=== PATIENT | male | born 1960 | race Caucasian/White ===

== ENCOUNTER → 2019-02-10 | Outpatient (CLI) | payer OTHER ==
[~2019-02-10] MED LIST: AMLO5 PO; CENTRUM SILVER1 EAC4 PO; Ecotrin325 MG PO; GABA300 PO; LOSARTAN-HCTZ1 EAC1 PO; METO50 PO; MOVE FREE JOIN1 EACH PO; Omeprazole20 M1 PO; POTCHL10ER PO; Spironolactone1 EACH PO
== END | disposition home or self-care (01) ==
LOC: LAB SHORT 11:00 → LAB EV 11:00
DX: S91.301A Unspecified open wound, right foot, initial encounter (principal)
CPT/HCPCS: 87070; 87077; 87147; 87186; 87205

== ENCOUNTER 2019-02-12 10:17 | Inpatient (IN) | payer OTHER ==
[~2019-02-12] VITALS: Ht 200.7 cm; Wt 135.2 kg
[2019-02-12 10:52] LABS: BASOPHILS ABSOLUTE AUTO 0.04 K/mm3 (0.00-0.23); BASOPHILS PERCENT AUTO 1 % (0-2); EOSINOPHILS ABSOLUTE AUTO 0.11 K/mm3 (0.00-0.68); EOSINOPHILS PERCENT AUTO 1 % (0-6); Hematocrit 36.9 % (37.0-53.0); Hemoglobin 12.4 g/dL (13.5-17.5); IMMATURE GRAN ABSOLUTE AUTO 0.03 K/mm3 (0.00-0.10); IMMATURE GRAN PERCENT AUTO 0 % (0-1); LYMPHOCYTES PERCENT AUTO 14 % (21-46); MONOCYTES ABSOLUTE AUTO 0.75 K/mm3 (0.16-1.47); MONOCYTES PERCENT AUTO 9 % (4-13); Mean Corpuscular HGB 29.2 pg (26.0-34.0); Mean Corpuscular HGB Conc 33.6 g/dL (31.5-36.5); Mean Corpuscular Volume 87 fL (80-100); Mean Platelet Volume 10.5 fL (9.1-12.4); NEUTROPHILS PERCENT AUTO 76 % (41-73); Platelet Count 236 K/mm3 (150-400); RDW Coefficient Variation 12.6 % (11.7-14.2); Red Blood Cell Count 4.25 M/mm3 (4.30-5.90); White Blood Cell Count 8.73 K/mm3 (4.00-11.30)
[2019-02-12 11:20] LABS: Albumin, Blood 3.8 g/dL (3.4-5.0); Albumin/Globulin Ratio 0.8 (0.8-1.8); Bilirubin, Total 0.5 mg/dL (0.1-1.0); Bun/Creatinine Ratio 18.6 (12.0-20.0); Calcium, Blood 9.1 mg/dL (8.5-10.1); Creatinine, Blood 1.67 mg/dL (0.60-1.20); Globulin, Blood 4.6 g/dL (2.2-4.0); Potassium, Blood 3.9 mmol/L (3.5-5.5); Total Protein, Blood 8.4 g/dL (6.4-8.2)
[2019-02-12] MEDS ORDERED: Spironolactone1 EACH PO ×2 (12:24)
[2019-02-12] MEDS ORDERED: POTCHL10ER PO ×2 (12:24)
[2019-02-12] MEDS ORDERED: AMLO5 PO ×2 (12:25)
[2019-02-12] MEDS ORDERED: GABA300 PO ×2 (12:26)
[2019-02-12] MEDS ORDERED: METO50 PO ×2 (12:27)
[2019-02-12] MEDS ORDERED: Omeprazole20 M1 PO ×2 (12:27)
[2019-02-12] MEDS ORDERED: LOSARTAN-HCTZ1 EAC1 PO ×2 (12:28)
[2019-02-12] MEDS ORDERED: ASPI81CH PO ×2 (12:44)
[2019-02-12] MEDS ORDERED: CENTRUM SILVER1 EAC4 PO ×2 (12:45)
[2019-02-12] MEDS ORDERED: MOVE FREE JOIN1 EACH PO ×2 (12:48)
--- NOTE | 2019-02-12 19:40 | NUR ---
ARRIVES TO FLOOR ABOUT 1600. ALERT AND ORIENTED. PIC TAKEN OF BOTH FEET WOUNDS, BUT FORGOT TO DO WOUND CULTURE WITH NIGHT RN AWARE. DR. CAVAZOS CALLED AND MAY BE IN TONIGHT TO SEE PATIENT. STEADY GAIT. DENIES ANY PAIN. UNLABORED RESPIRATIONS. BED IN LOW POSITION. REPORT TO NIGHT RN
[2019-02-13 05:29] LABS: BASOPHILS ABSOLUTE AUTO 0.05 K/mm3 (0.00-0.23); BASOPHILS PERCENT AUTO 1 % (0-2); EOSINOPHILS PERCENT AUTO 3 % (0-6); Hematocrit 34.8 % (37.0-53.0); Hemoglobin 11.5 g/dL (13.5-17.5); IMMATURE GRAN ABSOLUTE AUTO 0.02 K/mm3 (0.00-0.10); IMMATURE GRAN PERCENT AUTO 0 % (0-1); LYMPHOCYTES ABSOLUTE AUTO 0.97 K/mm3 (0.84-5.20); LYMPHOCYTES PERCENT AUTO 16 % (21-46); MONOCYTES ABSOLUTE AUTO 0.73 K/mm3 (0.16-1.47); MONOCYTES PERCENT AUTO 12 % (4-13); Mean Corpuscular HGB 28.5 pg (26.0-34.0); Mean Corpuscular Volume 86 fL (80-100); Mean Platelet Volume 10.5 fL (9.1-12.4); NEUTROPHILS PERCENT AUTO 69 % (41-73); Platelet Count 204 K/mm3 (150-400); RDW Coefficient Variation 12.5 % (11.7-14.2); RDW Standard Deviation 39.7 fL (35.1-46.3); Red Blood Cell Count 4.03 M/mm3 (4.30-5.90); White Blood Cell Count 6.27 K/mm3 (4.00-11.30)
[2019-02-13 05:49] LABS: Albumin, Blood 3.3 g/dL (3.4-5.0); Albumin/Globulin Ratio 0.8 (0.8-1.8); Bilirubin, Total 0.6 mg/dL (0.1-1.0); Bun/Creatinine Ratio 19.1 (12.0-20.0); Calcium, Blood 8.9 mg/dL (8.5-10.1); Creatinine, Blood 1.57 mg/dL (0.60-1.20); Globulin, Blood 4.1 g/dL (2.2-4.0); Potassium, Blood 4.1 mmol/L (3.5-5.5); Total Protein, Blood 7.4 g/dL (6.4-8.2)
--- NOTE | 2019-02-13 06:58 | NUR ---
Rn summary: Patient is alert and oriented. He is up ad erika in room. Pt has open area to left little toe with decreasing redness. Dr. Stearns was in at beginning of shift, did talk with paitent and saw foot. Wound culture obtained and drsg reapplied. Pt has mepilex to rt little toe. Pt has kwabena foot neuropathy, puslses are strong. Pt has chronic back pain and received tylenol and advil x2 with good relief, also has eggcrate to bed. Pt has only rested on and off this shift. Pt receiving IV antibiotics. Call light in reach.
[2019-02-13 13:36] LABS: Adenovirus F 40/41 Not Detected (NOT DETECT); Astrovirus Not Detected (NOT DETECT); Campylobacter Sp Not Detected (NOT DETECT); Cryptosporidium Not Detected (NOT DETECT); Cyclospora Cayetanensis Not Detected (NOT DETECT); E. Coli O157 Not Detected (NOT DETECT); Entamoeba Histolytica Not Detected (NOT DETECT); Enteroaggregative E. coli-EAEC Not Detected (NOT DETECT); Enteropathogenic E. coli-EPEC Not Detected (NOT DETECT); Enterotoxigenic E. coli-ETEC Not Detected (NOT DETECT); Giardia Lamblia Not Detected (NOT DETECT); Norovirus GI/GII Not Detected (NOT DETECT); Plesiomonas Shigelloides Not Detected (NOT DETECT); Rotavirus A Not Detected (NOT DETECT); Salmonella Sp Not Detected (NOT DETECT); Sapovirus Not Detected (NOT DETECT); Shiga Toxin-prod E. coli-STEC Not Detected (NOT DETECT); Shigella/Enteroin E. coli-EIEC Not Detected (NOT DETECT); Vibrio Cholerae Not Detected (NOT DETECT); Vibrio Sp Not Detected (NOT DETECT); Yersinia Enterocolitica Not Detected (NOT DETECT)
--- NOTE | 2019-02-13 16:53 | NUR ---
SUMMARY PT IS A/O X4, PLEASANT/COOPERATIVE AFFECT. INDEPENDANT IN ROOM, HE STATE NO PAIN ULCER SITES L SM TOE, R SM TOE. STATE BLE NEUROPATHY. WOUND CARE/DRSG CHANGES PROVIDED TODAY. IV ANTIBX CONTINUE. PT REPORT DARRHEA THIS AM, DR LUCIANO ORDER GI PANEL. C-DIFF+, CONTACT ISO PRECAUTIONS EXPLAINED TO PT/, GOOD HANDWASHING ENCOURAGED. THEY VERBALIZE UNDERSTANDING. DR LUCIANO ORDER ORAL VANCO FOR TX. THIS AM SBP 90'S, BP MEDS HELD. THIS AFTERNOON BP 110/68.
[2019-02-13 18:47] LABS: Vancomycin, Trough 16.5 ug/mL (5.0-10.0)
[2019-02-14 06:01] LABS: Albumin, Blood 3.2 g/dL (3.4-5.0); Anion Gap 6 mmol/L (6-16); Blood Urea Nitrogen 22 mg/dL (8-24); Bun/Creatinine Ratio 15.1 (12.0-20.0); CO2, Blood 26 mmol/L (21-32); Calcium, Blood 8.8 mg/dL (8.5-10.1); Chloride, Blood 104 mmol/L (98-108); Creatinine, Blood 1.46 mg/dL (0.60-1.20); Glomerular Filtration Rate 53 (60-); Glucose, Blood 99 mg/dL (70-99); Phosphorus, Blood 3.3 mg/dL (2.5-4.9); Potassium, Blood 4.2 mmol/L (3.5-5.5); Sodium, Blood 136 mmol/L (136-145)
--- NOTE | 2019-02-14 06:45 | NUR ---
SHIFT SUMMARY PATIENT IS ALERT AND ORIENTED. WOUNDS ON FEET HAVE BEEN REDRESSED AND ARE C/D/I. PATIENT HAD IV VANCO AND ORAL VANCO A COUPLE HOURS AFTER PATIENT CALLED SAYING HIS STOMACH WAS VERY ITCHY, PATIENT APPEARS TO HAVE HIVES ON ABDOMEN. CALLED HOSPITALIST AND RECIEVED ORDER FOR OT BENADRYL. THIS HELPED SOME BUT PATIENT IS STILL ITCHY. HOSPITALIST UNSURE IF PATIENT SHOULD GET ANYMORE VANCO. WILL PASS ALONG TO DAYSHIFT RN TO TALK WITH DAYSHIFT DOCTOR. PATIENT AMBULATES TO BATHROOM INDEPENDENTLY. PT STATES HE HAS NOT HAD A BM THIS SHIFT. BP MEDS HELD FOR LOW BP AND PER PHARMACIST RECOMMENDATION. VITALS STABLE. NO OTHER CHANGES.
--- NOTE | 2019-02-14 17:08 | NUR ---
SUMMARY PT A/O X4, PLEASANT/COOPERATIVE AFFECT. STATE NO PAIN WOUND SITES, HX BLE NEUROPATHY. HAVE GIVEN TYLENOL & IBUPROFEN TODAY FOR H/A & CHR BACK PAIN RELIEF/CONTROL. PT AMBULATES IND. DR LUCIANO IN TO SEE HIM THIS AM, DISCUSS ANTIBX TX. D/C VANCO. IV ZOSYN CONTINUES. WOUND CARE/DRSG CHANGES PROVIDED. DR ESTEVES TO CONTINUE IV NS W K+ @ 75 ML/HR, STATE KIDNEY FX IMPROVING. COCOA PRESS OPERATOR STATE PICC WILL BE PLACED IN AM. DIARRHEA CONTINUES, C-DIFF+, DR LUCIANO ORDER LOPERIMIDE PRN. VSS.
[2019-02-15 05:36] LABS: BASOPHILS ABSOLUTE AUTO 0.03 K/mm3 (0.00-0.23); BASOPHILS PERCENT AUTO 1 % (0-2); EOSINOPHILS ABSOLUTE AUTO 0.21 K/mm3 (0.00-0.68); EOSINOPHILS PERCENT AUTO 5 % (0-6); Hematocrit 33.4 % (37.0-53.0); Hemoglobin 11.1 g/dL (13.5-17.5); IMMATURE GRAN ABSOLUTE AUTO 0.02 K/mm3 (0.00-0.10); IMMATURE GRAN PERCENT AUTO 0 % (0-1); LYMPHOCYTES ABSOLUTE AUTO 0.91 K/mm3 (0.84-5.20); LYMPHOCYTES PERCENT AUTO 20 % (21-46); MONOCYTES ABSOLUTE AUTO 0.67 K/mm3 (0.16-1.47); MONOCYTES PERCENT AUTO 15 % (4-13); Mean Corpuscular HGB 29.4 pg (26.0-34.0); Mean Corpuscular HGB Conc 33.2 g/dL (31.5-36.5); Mean Platelet Volume 10.2 fL (9.1-12.4); NEUTROPHILS ABSOLUTE AUTO 2.61 K/mm3 (1.96-9.15); NEUTROPHILS PERCENT AUTO 59 % (41-73); Platelet Count 168 K/mm3 (150-400); RDW Coefficient Variation 12.4 % (11.7-14.2); RDW Standard Deviation 40.2 fL (35.1-46.3); Red Blood Cell Count 3.77 M/mm3 (4.30-5.90); White Blood Cell Count 4.45 K/mm3 (4.00-11.30)
[2019-02-15 05:37] LABS: Mean Corpuscular Volume 89 fL (80-100)
[2019-02-15 05:54] LABS: Anion Gap 5 mmol/L (6-16); Blood Urea Nitrogen 18 mg/dL (8-24); Bun/Creatinine Ratio 13.4 (12.0-20.0); CO2, Blood 26 mmol/L (21-32); Calcium, Blood 8.3 mg/dL (8.5-10.1); Chloride, Blood 109 mmol/L (98-108); Creatinine, Blood 1.34 mg/dL (0.60-1.20); Glomerular Filtration Rate 58 (60-); Glucose, Blood 99 mg/dL (70-99); Magnesium, Blood 1.7 mg/dL (1.6-2.4); Phosphorus, Blood 2.9 mg/dL (2.5-4.9); Potassium, Blood 4.3 mmol/L (3.5-5.5); Sodium, Blood 140 mmol/L (136-145)
--- NOTE | 2019-02-15 06:46 | NUR ---
a+o, up and walking in [address], R upper arm 20g, room air, able to make needs known, call light in reach, walking rounds completed with day shift
--- NOTE | 2019-02-15 17:47 | NUR ---
SHIFT SUMMARY 58 YR OLD MALE ADMITTED FOR OSTEOMYELITIS. AT FIRST BELIEVED TO BE CELLULITIS IT WAS DISCOVERED HE HAD A FRACTURED LITTLE TOE AND OSTEOMYELITIS. A PICC LINE WAS PUT IN TODAY FOR THIS PT TO RECEIVE 6 WEEKS OF IV ANTIBIOTIC THERAPY. NOW AWAITING SET UP OF SOME TYPE OF HOME HEALTH (PT'S INSURANCE WILLING) SO THAT THIS MEDICATION MAY BE GIVEN AT HOME. PT CAN THEN DISCHARGE. [facility] IS INVESTIGATING. I CHANGED THE DRESSING ON THE LEFT FOOT TODAY. HOSPITALIST REMOVED THE LEFT FOOT'S DRESSING. PT IS INDEPENDENT IN THE ROOM AND WALKS HALLS WITH HIS . HE IS ON ROOM AIR. A&O X4. HX: NEUROPATHY
--- NOTE | 2019-02-16 07:26 | NUR ---
a+o, up walking in the halls, room air, picc line and IV infusing with no s/sx of infection or infiltration, cooperative with staff
--- NOTE | 2019-02-16 12:14 | NUR ---
CALLED PHARMACY RE:EARLY VANCOMYCIN ADMIN INFORMED PHARMACY WE WOULD LIKE TO DC PT AFTER NEXT ANTIBIOTIC DOSE IS COMPLETED. I INQUIRED TO WHAT WOULD BE THE SAFEST EARLY ADMINISTRATION TIME TO BEGIN NEXT DOSE OF VANCO. PHARMACIST RECOMMENDS TO BEGIN VANCO NO EARLIER THAN 1700 HRS.
--- NOTE | 2019-02-16 18:08 | NUR ---
SHIFT SUMMARY 58 YR OLD MALE ADMITTED FOR OSTEOMYELITIS IN LEFT FOOT W/FRACTURE. FULL CODE. RT FOOT HAS A SMALL WOUND THAT IS ALMOST RESOLVED. HE IS ON A REGULAR DIET, AMBULATES INDEPENDENTLY, ROOM AIR, A&O X4. CDIFF COLONIZATION - CONTACT PRECAUTIONS. PLAN IS FOR PT TO DC TOMORROW WITH NEW PICC LINE FOR 6 WKS OF IV ANTIBIOTIC THERAPY. CARE MANAGEMENT IS WORKING HARD TO ARRANGE THE DETAILS OF HOW THE ANTIBIOTICS WILL BE ADMINISTERED THAT WILL SATISFY BOTH THE PT AND THE PT'S INSURANCE COMPANY (IF NOT, AT LEAST TO FIND MORE COST EFFECTIVE SOLUTIONS TO OFFER THE PT). PLAN IS FOR DC TOMORROW IF THESE ARRANGEMENTS CAN BE MADE.
--- NOTE | 2019-02-17 07:09 | NUR ---
a+o ready to go home as soon as it is safe to do so, call light in reach, saline locked, room air, independant, walking rounds completed with returning day staff
[2019-02-17 09:40] LABS: Vancomycin, Trough 17.1 ug/mL (5.0-10.0)
--- NOTE | 2019-02-17 12:46 | NUR ---
SPOKE WITH PT, SPOUSE AND BINDUYLIN AT BEDSIDE REGARDING DISCHARGE PLAN. SPOKE WITH BAUDILIO IN PHARMACY WHO REPORTS SHE SPOKE WITH ANTONIO AND PT CAN GET IV VANCO AT 0730 AND 1630 ON AND FRI, BINDUYLIN O SET UP. PER BAUDILIO OK TO GIVE 2100 DOSE TONIGHT AT 1630 PRIOR TO DISCHARGE HOME.
--- NOTE | 2019-02-17 15:22 | NUR ---
DRESSINGS CHANGED TO BILAT FEET 5TH TOES. NEW PHOTOS TAKEN. BOTH SECURED WITH COBAN. NETTING APPLIED OVER PICC LINE TO SECURE.
[2019-02-17] MEDS ORDERED: ACET325 PO ×2 (17:25)
[2019-02-17] MEDS ORDERED: Florastor250 MG PO ×2 (17:26)
[2019-02-17] MEDS ORDERED: VANCO 2 GR2 GM/500 M IV ×2 (17:26)
--- NOTE | 2019-02-17 17:28 | NUR ---
IV VANCO STARTED AT 1630 PER PHARMACY. PT TO GO TO [facility] FRIDAY AND FRI AT 0730 AND 1630 FOR IV VANCO THEN START HOME INFUSIONS ON FRIDAY, PER [facility] THEY WILL TRAIN PT IF NEEDED. F/U APPT MADE WITH DR CAVAZOS 02/23 AT 0800 AND PICC LINE DRESSING CHANGE THE AT 0930 AT [facility]. PT AND SPOUSE INSTRUCTED ON WOUND CARE DRESSING CHANGES AND EXTRA SUPPLIES SENT WITH PT. SCRIPT FOR WORK RELESAE GIVEN TO PT. CURRENTLY AWAITING ABX TO COMPLETE THEN D/C HOME WITH SPOUSE. NETTING SECURED OVER PICC LINE.
--- NOTE | 2019-02-17 18:46 | NUR ---
PT DC'D HOME WITH SPOUSE AT 1843 AFTER IV XUANO. PT ESCORTED OUT VIA W/C.
== END 2019-02-17 18:43 | disposition home or self-care (01) | DRG 563 ==
LOC: ER 10:17 → MEDS 13:33
PROVIDERS: Emergency Medicine; ADMIT Internal Medicine Gastroenterology
PROC: 02HV33Z Insertion of Infusion Device into Superior Vena Cava, Percutaneous Approach (ICD-10-PCS; principal; 2019-02-15)
PROC: 4A02X4A Measurement of Cardiac Electrical Activity, Guidance, External Approach (ICD-10-PCS; 2019-02-15)
DX: S92.902A Unspecified fracture of left foot, initial encounter for closed fracture (principal); L03.116 Cellulitis of left lower limb; M86.9 Osteomyelitis, unspecified; G60.8 Other hereditary and idiopathic neuropathies; I10 Essential (primary) hypertension; K21.9 Gastro-esophageal reflux disease without esophagitis; E66.9 Obesity, unspecified
CPT/HCPCS: 36415; 36569; 73620; 73718; 80053; 80069; 80202; 83605; 83735; 84145; 85025; 85651; 86140; 87040; 87070; 87075; 87077; 87147; 87186; 87205; 87324; 87507; 93306; 99285-25; A9270; C1751; J1650; J2405; J2543; J3370; J3480; J7050; Q0163

== ENCOUNTER 2019-02-18 07:09 | Day surgery (SDC) | payer OTHER ==
[~2019-02-18 07:09] MED LIST changes: +ACET325 PO; +ASPI81CH PO; -Ecotrin325 MG PO; +Florastor250 MG PO; +VANCO 2 GR2 GM/500 M IV
--- NOTE | 2019-02-18 17:42 | NUR ---
PICC LINE CARE/FLUSH TEACHING TO SPOUSE/PT PT TO START HOME INFUSIONS. PT BROUGHT IN HOME SUPPLIES. PT HAS PREFILLED VANCOMYCIN ON ICE AND NS FLUSHES. SPOUSE DEMONSTRATES FLUSHING OF LINE, AND HOOKING PRIMARY TUBING TO PORT. VERBALIZES IMPORTANCE OF MAINTAINING ASEPTIC TECHNIQUE FOR PICC CARE.
== END 2019-02-18 18:30 | disposition home or self-care (01) ==
LOC: ATC 07:09
DX: M86.172 Other acute osteomyelitis, left ankle and foot (principal); I10 Essential (primary) hypertension; K21.9 Gastro-esophageal reflux disease without esophagitis; G62.9 Polyneuropathy, unspecified; Z86.73 Personal history of transient ischemic attack (TIA), and cerebral infarction without residual deficits; Z88.8 Allergy status to other drugs, medicaments and biological substances; Z87.891 Personal history of nicotine dependence
CPT/HCPCS: 96365; 96366; J3370; J7050

== ENCOUNTER 2019-02-23 00:18 | Day surgery (SDC) | payer OTHER ==
[2019-02-23 10:58] LABS: BASOPHILS ABSOLUTE AUTO 0.06 K/mm3 (0.00-0.23); BASOPHILS PERCENT AUTO 1 % (0-2); EOSINOPHILS ABSOLUTE AUTO 0.27 K/mm3 (0.00-0.68); EOSINOPHILS PERCENT AUTO 4 % (0-6); Hematocrit 34.6 % (37.0-53.0); Hemoglobin 11.4 g/dL (13.5-17.5); IMMATURE GRAN ABSOLUTE AUTO 0.04 K/mm3 (0.00-0.10); IMMATURE GRAN PERCENT AUTO 1 % (0-1); LYMPHOCYTES ABSOLUTE AUTO 0.66 K/mm3 (0.84-5.20); LYMPHOCYTES PERCENT AUTO 10 % (21-46); MONOCYTES ABSOLUTE AUTO 0.66 K/mm3 (0.16-1.47); MONOCYTES PERCENT AUTO 10 % (4-13); Mean Corpuscular HGB 28.6 pg (26.0-34.0); Mean Corpuscular HGB Conc 32.9 g/dL (31.5-36.5); Mean Corpuscular Volume 87 fL (80-100); Mean Platelet Volume 11.1 fL (9.1-12.4); NEUTROPHILS ABSOLUTE AUTO 5.25 K/mm3 (1.96-9.15); NEUTROPHILS PERCENT AUTO 76 % (41-73); Platelet Count 179 K/mm3 (150-400); RDW Coefficient Variation 13.1 % (11.7-14.2); RDW Standard Deviation 40.8 fL (35.1-46.3); Red Blood Cell Count 3.99 M/mm3 (4.30-5.90); White Blood Cell Count 6.94 K/mm3 (4.00-11.30)
[2019-02-23 11:20] LABS: Anion Gap 7 mmol/L (6-16); Blood Urea Nitrogen 26 mg/dL (8-24); Bun/Creatinine Ratio 17.8 (12.0-20.0); CO2, Blood 27 mmol/L (21-32); Calcium, Blood 8.9 mg/dL (8.5-10.1); Chloride, Blood 106 mmol/L (98-108); Creatinine, Blood 1.46 mg/dL (0.60-1.20); Glomerular Filtration Rate 53 (60-); Glucose, Blood 99 mg/dL (70-99); Sodium, Blood 140 mmol/L (136-145)
[2019-02-23 11:27] LABS: Vancomycin, Trough 42.8 ug/mL (5.0-10.0)
== END 2019-02-23 10:55 | disposition home or self-care (01) ==
LOC: ATC 00:18
PROVIDERS: Internal Medicine Gastroenterology
DX: M86.172 Other acute osteomyelitis, left ankle and foot (principal); I10 Essential (primary) hypertension; K21.9 Gastro-esophageal reflux disease without esophagitis; Z88.8 Allergy status to other drugs, medicaments and biological substances; Z87.891 Personal history of nicotine dependence
CPT/HCPCS: 36592; 80048; 80202; 85025; 85651

== ENCOUNTER 2019-03-02 03:01 | Day surgery (SDC) | payer OTHER ==
[2019-03-02 17:07] LABS: BASOPHILS ABSOLUTE AUTO 0.07 K/mm3 (0.00-0.23); BASOPHILS PERCENT AUTO 1 % (0-2); EOSINOPHILS ABSOLUTE AUTO 0.27 K/mm3 (0.00-0.68); EOSINOPHILS PERCENT AUTO 4 % (0-6); Hemoglobin 10.9 g/dL (13.5-17.5); IMMATURE GRAN ABSOLUTE AUTO 0.02 K/mm3 (0.00-0.10); IMMATURE GRAN PERCENT AUTO 0 % (0-1); LYMPHOCYTES PERCENT AUTO 16 % (21-46); MONOCYTES ABSOLUTE AUTO 0.62 K/mm3 (0.16-1.47); MONOCYTES PERCENT AUTO 10 % (4-13); Mean Corpuscular HGB 28.2 pg (26.0-34.0); Mean Corpuscular Volume 86 fL (80-100); Mean Platelet Volume 10.8 fL (9.1-12.4); NEUTROPHILS ABSOLUTE AUTO 4.27 K/mm3 (1.96-9.15); NEUTROPHILS PERCENT AUTO 68 % (41-73); Platelet Count 198 K/mm3 (150-400); RDW Coefficient Variation 13.4 % (11.7-14.2); Red Blood Cell Count 3.86 M/mm3 (4.30-5.90); White Blood Cell Count 6.25 K/mm3 (4.00-11.30)
[2019-03-02 17:34] LABS: Anion Gap 8 mmol/L (6-16); Blood Urea Nitrogen 22 mg/dL (8-24); Bun/Creatinine Ratio 16.3 (12.0-20.0); CO2, Blood 28 mmol/L (21-32); Calcium, Blood 8.9 mg/dL (8.5-10.1); Chloride, Blood 104 mmol/L (98-108); Creatinine, Blood 1.35 mg/dL (0.60-1.20); Glomerular Filtration Rate 58 (60-); Glucose, Blood 87 mg/dL (70-99); Potassium, Blood 3.5 mmol/L (3.5-5.5); Sodium, Blood 140 mmol/L (136-145)
[2019-03-02 17:36] LABS: Vancomycin, Trough 32.8 ug/mL (5.0-10.0)
== END 2019-03-02 16:57 | disposition home or self-care (01) ==
LOC: ATC 03:01
PROVIDERS: Family Medicine
DX: M86.179 Other acute osteomyelitis, unspecified ankle and foot (principal); I10 Essential (primary) hypertension; Z86.73 Personal history of transient ischemic attack (TIA), and cerebral infarction without residual deficits; Z79.899 Other long term (current) drug therapy; Z79.82 Long term (current) use of aspirin
CPT/HCPCS: 80048; 80202; 85025; 99211

== ENCOUNTER 2019-03-09 17:23 | Day surgery (SDC) | payer OTHER | END 2019-03-09 17:30 | disposition home or self-care (01) | LOC: ATC 17:23 | DX: M86.172 Other acute osteomyelitis, left ankle and foot (principal); I10 Essential (primary) hypertension; Z86.73 Personal history of transient ischemic attack (TIA), and cerebral infarction without residual deficits; Z79.899 Other long term (current) drug therapy; Z79.82 Long term (current) use of aspirin; Z87.891 Personal history of nicotine dependence | CPT/HCPCS: 99211 ==

== ENCOUNTER 2019-10-04 07:44 | Inpatient (IN) | payer OTHER ==
[~2019-10-04] VITALS: Ht 193 cm; Wt 134.0 kg
[~2019-10-04 07:44] MED LIST changes: -AMLO5 PO; +AMLODIPINE BESY10 MG PO; -ASPI81CH PO; +Aspirin EC81 MG PO
[2019-10-04 09:33] LABS: BASOPHILS ABSOLUTE AUTO 0.01 K/mm3 (0.00-0.23); BASOPHILS PERCENT AUTO 0 % (0-2); EOSINOPHILS PERCENT AUTO 0 % (0-6); Hematocrit 35.8 % (37.0-53.0); Hemoglobin 12.1 g/dL (13.5-17.5); IMMATURE GRAN ABSOLUTE AUTO 0.01 K/mm3 (0.00-0.10); IMMATURE GRAN PERCENT AUTO 0 % (0-1); LYMPHOCYTES ABSOLUTE AUTO 0.46 K/mm3 (0.84-5.20); LYMPHOCYTES PERCENT AUTO 8 % (21-46); MONOCYTES ABSOLUTE AUTO 0.59 K/mm3 (0.16-1.47); MONOCYTES PERCENT AUTO 11 % (4-13); Mean Corpuscular HGB 28.9 pg (26.0-34.0); Mean Corpuscular HGB Conc 33.8 g/dL (31.5-36.5); Mean Corpuscular Volume 85 fL (80-100); Mean Platelet Volume 11.1 fL (9.1-12.4); NEUTROPHILS ABSOLUTE AUTO 4.41 K/mm3 (1.96-9.15); NEUTROPHILS PERCENT AUTO 80 % (41-73); Platelet Count 101 K/mm3 (150-400); RDW Coefficient Variation 13.4 % (11.7-14.2); RDW Standard Deviation 41.9 fL (35.1-46.3); Red Blood Cell Count 4.19 M/mm3 (4.30-5.90); White Blood Cell Count 5.48 K/mm3 (4.00-11.30)
[2019-10-04 09:40] LABS: Calcium, Blood 8.6 mg/dL (8.5-10.1); Potassium, Blood 2.6 mmol/L (3.5-5.5)
[2019-10-04 09:48] LABS: Influenza A Negative (NEGATIVE); Influenza B Negative (NEGATIVE)
[2019-10-04 09:48] LABS: Albumin, Blood 3.6 g/dL (3.4-5.0); Albumin/Globulin Ratio 0.8 (0.8-1.8); Bilirubin, Total 1.2 mg/dL (0.1-1.0); Bun/Creatinine Ratio 19.5 (12.0-20.0); Creatinine, Blood 1.54 mg/dL (0.60-1.20); Globulin, Blood 4.3 g/dL (2.2-4.0); Total Protein, Blood 7.9 g/dL (6.4-8.2); Troponin I 0.094 ng/mL (0.000-0.040)
[2019-10-04 09:58] LABS: Source, Urine Voided
[2019-10-04 10:07] LABS: Bilirubin, Urine Neg (Neg); Blood, Urine 4+ (Neg); Glucose Qualitative, Urine Neg (Neg); Ketones, Urine 1+ (Neg); Leukocyte Esterase, Urine Neg (Neg); Nitrite, Urine Neg (Neg); Protein, Urine 3+ (Neg); Urobilinogen, Urine NORM (Normal)
[2019-10-04 10:25] LABS: Appearance, Urine Hazy (Clear); Color, Urine Yellow (P-Yellow); Squamous Epithelial Cells Few /hpf (Few)
[2019-10-04 10:26] LABS: Bacteria Few /hpf; Granular Casts 0-2 /lpf (0); Hyaline Casts 0-2 /lpf (0-2); White Blood Cells, Urine 0-2 /hpf (0-5)
--- NOTE | 2019-10-04 11:24 | NUR ---
REPORT FROM GORDON KAUR IN ER.
[2019-10-04] MEDS ORDERED: LOSARTAN POTAS100 MG PO (11:42)
[2019-10-04] MEDS ORDERED: HYDCHL25 PO (11:42)
[2019-10-04 12:22] LABS: Base Excess Venous 7.5 mmol/L; Bicarbonate Venous 31.2 mmol/L (24.0-30.0); PCO2 Venous 31.4 mmHg (38-42); PO2 Venous 51.6 mmHg (38-42)
[2019-10-04 12:23] LABS: pH Blood Venous 7.58 (7.34-7.37)
--- NOTE | 2019-10-04 12:55 | NUR ---
ABX STARTED. PT MEDICATED WITH ZOFRAN FOR NAUSEA. PT ABLE TO GET TO AND FROM RR FOR 2ND LIQUID STOOL. WILL NOTIFY PROVIDER.
[2019-10-04 17:47] LABS: Troponin I 0.114 ng/mL (0.000-0.040)
[2019-10-04 17:49] LABS: Thyroid Stimulating Hormone 0.552 uIU/mL (0.360-4.800)
--- NOTE | 2019-10-04 20:42 | NUR ---
ASSUMED CARE OF PATIENT PATIENT IS LETHARGIC, PERFUSLY DIAPHORETIC AND HAS A FEVER OF 100.5 - REPORTED FINDINGS TO MD WEISS - PATIENT CHANGED FROM MEDICAL STATUS TO PCU PER MD WEISS. PATIENT REMAINS IN NSR IN THE 80'S AT THIS TIME; SIGNIFICANT OTHER AT BEDSIDE. RESPIRATIONS LABORED AT REST ON 3 LPM NC; WILL CONTINUE TO MONITOR. PATIENT ALSO REPORTS BACK PAIN DUE TO BED - MD INFORMED BUT DUE TO KIDNEY FUNCTION NO FURTHER MEDICATION ORDERED FOR FEVER OR PAIN AT THIS TIME. WILL CONTINUE TO MONITOR; CALL LIGHT W/I REACH.
[2019-10-05 00:16] LABS: Adenovirus Not Detected (NOT DETECT); Coronavirus 229E Not Detected (NOT DETECT); Coronavirus HKU1 Not Detected (NOT DETECT); Coronavirus NL63 Not Detected (NOT DETECT); Coronavirus OC43 Not Detected (NOT DETECT); Human Metapneumovirus Not Detected (NOT DETECT); Human Rhinovirus/Enterovirus Not Detected (NOT DETECT)
[2019-10-05 00:17] LABS: Bordetella pertussis Not Detected (NOT DETECT); Chlamydophila pneumoniae Not Detected (NOT DETECT); Influenza A Not Detected (NOT DETECT); Influenza A/2009-H1 Not Detected (NOT DETECT); Influenza A/H1 Not Detected (NOT DETECT); Influenza A/H3 Not Detected (NOT DETECT); Influenza B Not Detected (NOT DETECT); Mycoplasma pneumoniae Not Detected (NOT DETECT); Parainfluenza Virus 1 Not Detected (NOT DETECT); Parainfluenza Virus 2 Not Detected (NOT DETECT); Parainfluenza Virus 3 Not Detected (NOT DETECT); Parainfluenza Virus 4 Not Detected (NOT DETECT); Respiratory Syncytial Virus Not Detected (NOT DETECT)
[2019-10-05 02:20] LABS: Albumin, Blood 3.2 g/dL (3.4-5.0); Albumin/Globulin Ratio 0.8 (0.8-1.8); Bilirubin, Total 0.7 mg/dL (0.1-1.0); Bun/Creatinine Ratio 18.3 (12.0-20.0); Creatinine, Blood 1.53 mg/dL (0.60-1.20); Potassium, Blood 3.1 mmol/L (3.5-5.5); Total Protein, Blood 7.2 g/dL (6.4-8.2)
[2019-10-05 03:51] LABS: BASOPHILS ABSOLUTE AUTO 0.02 K/mm3 (0.00-0.23); BASOPHILS PERCENT AUTO 0 % (0-2); EOSINOPHILS PERCENT AUTO 0 % (0-6); Hematocrit 35.3 % (37.0-53.0); Hemoglobin 12.1 g/dL (13.5-17.5); IMMATURE GRAN ABSOLUTE AUTO 0.01 K/mm3 (0.00-0.10); IMMATURE GRAN PERCENT AUTO 0 % (0-1); LYMPHOCYTES ABSOLUTE AUTO 0.44 K/mm3 (0.84-5.20); LYMPHOCYTES PERCENT AUTO 9 % (21-46); MONOCYTES ABSOLUTE AUTO 0.59 K/mm3 (0.16-1.47); MONOCYTES PERCENT AUTO 12 % (4-13); Mean Corpuscular HGB 29.2 pg (26.0-34.0); Mean Corpuscular HGB Conc 34.3 g/dL (31.5-36.5); Mean Corpuscular Volume 85 fL (80-100); Mean Platelet Volume 11.8 fL (9.1-12.4); NEUTROPHILS PERCENT AUTO 78 % (41-73); Platelet Count 107 K/mm3 (150-400); RDW Coefficient Variation 13.4 % (11.7-14.2); RDW Standard Deviation 42.1 fL (35.1-46.3); Red Blood Cell Count 4.14 M/mm3 (4.30-5.90); White Blood Cell Count 4.76 K/mm3 (4.00-11.30)
[2019-10-05 04:07] LABS: Troponin I 0.066 ng/mL (0.000-0.040)
--- NOTE | 2019-10-05 06:36 | NUR ---
PCU NOC SHIFT SUMMARY PATIENT REMAINS ALERT AND ORIENTED X4. RESP LABORED AND UNEVEN, PERIODS OF APNEA NOTED WHILE PATIENT WAS SLEEPING - OXYGEN NEEDED AT 3 LPM DURING PERIODS OF SLEEP. PATIENT WAS ABLE TO AMBULATE THE HALLS W/O OXYGEN NEEDS BUT REMAINED SOB W/ LABORED BREATHING. PATIENT SWEATING/DIAPHORETIC T/O SHIFT - GOWN CHANGED 4 TIMES. PATIENT REMAINS IN NSR WITH NO CARDIAC EVENTS WITH HEART RATE IN THE 80'S PER IT APPLICATIONS ANALYST. PATIENT HAS INFECTION WITH NO SIGN OF ORGIN AT THIS TIME - TROPONINS ARE TRENDING DOWN PER LABS. FLUIDS RUNNING PER EMAR. PATIENT AMBLE TO AMBULATE TO BATHROOM WELL. WILL CONTINUE TO MONITOR AND GIVE REPORT TO DAYSHIFT RN.
--- NOTE | 2019-10-05 18:22 | NUR ---
SHIFT SUMMARY TMAX TODAY WAS 100.4. OVERALL PT FEELS HE IS IMPROVING. THIS MORNING PT REPORTED FREQUENT EPISODES OF DIARRHEA. NEW ORDERS FOR IMODIUM AND LACTOBACILLIS RECEIVED. AFTER DOSES, PT WAS ABLE TO TOLERATE MEALS AND HAD NO DIARRHEA THIS AFTERNOON. WAS ABLE TO WEAN PT DOWN ON O2 TODAY FROM 3L TO 2L NC. PT WAS ALSO UP AMBULATING HALLS W/O2 AND DIDN'T DROP HIS 02 SATS. TELEMETRY SHOWS PT TO BE IN A SINUS RHYTHM AND VITALS HAVE REMAINED STABLE.
--- NOTE | 2019-10-05 19:45 | NUR ---
ASSUMED CARE BEDSIDE REPORT RECIEVED. PT IS ALERT, ORIENTED, AND PLEASANT. PT SPOUSE AT BEDSIDE. PT DENIES PAIN OR SOB AT THIS TIME. PT DOES COMPLAIN OF CHILLS AT TIMES. PT FEBRILE 100.7. VITAL SIGNS STABLE. PT ON 1L O2 NC. NS INFUSING AT 125 ML/HR. PT WITH GOOD PO FLUID INTAKE. PT UP TO TOILET TO VOID INDEPENDENTLY. PT REPORTS DIARRHEA HAS BEEN IMPROVING THROUGHOUT THE DAY. WILL CONTINUE TO MONITOR.
[2019-10-06 05:26] LABS: BASOPHILS ABSOLUTE AUTO 0.01 K/mm3 (0.00-0.23); BASOPHILS PERCENT AUTO 0 % (0-2); EOSINOPHILS ABSOLUTE AUTO 0.02 K/mm3 (0.00-0.68); EOSINOPHILS PERCENT AUTO 1 % (0-6); Hematocrit 31.8 % (37.0-53.0); Hemoglobin 10.7 g/dL (13.5-17.5); Mean Corpuscular HGB 29.2 pg (26.0-34.0); Mean Corpuscular HGB Conc 33.6 g/dL (31.5-36.5); Mean Corpuscular Volume 87 fL (80-100); Mean Platelet Volume 12.2 fL (9.1-12.4); Platelet Count 98 K/mm3 (150-400); RDW Coefficient Variation 13.4 % (11.7-14.2); RDW Standard Deviation 43.3 fL (35.1-46.3); Red Blood Cell Count 3.66 M/mm3 (4.30-5.90); White Blood Cell Count 3.51 K/mm3 (4.00-11.30)
[2019-10-06 05:35] LABS: IMMATURE GRAN ABSOLUTE AUTO 0.01 K/mm3 (0.00-0.10); IMMATURE GRAN PERCENT AUTO 0 % (0-1); LYMPHOCYTES ABSOLUTE AUTO 0.57 K/mm3 (0.84-5.20); LYMPHOCYTES PERCENT AUTO 17 % (21-46); MONOCYTES ABSOLUTE AUTO 0.62 K/mm3 (0.16-1.47); MONOCYTES PERCENT AUTO 18 % (4-13); NEUTROPHILS ABSOLUTE AUTO 2.21 K/mm3 (1.96-9.15); NEUTROPHILS PERCENT AUTO 64 % (41-73)
--- NOTE | 2019-10-06 05:40 | NUR ---
SHIFT SUMMARY NO ACUTE CHANGES THIS SHIFT. PT HAS SLEPT OFF AND ON THROUGHOUT THE NIGHT. WHEN AWAKE PT HAS REMAINED ALERT AND ORIENTED. PT WEENED OF O2 TO RA. VITAL SIGNS HAVE REMAINED STABLE. PT INDEPENDENT IN ROOM. NS INFUSING AT 125 ML/HR. WILL CONTINUE TO MONITOR AND REPORT OFF TO ONCOMING RN.
[2019-10-06 05:55] LABS: Alanine Aminotransfer (ALT/SGP 46 U/L (12-78); Albumin, Blood 2.8 g/dL (3.4-5.0); Albumin/Globulin Ratio 0.8 (0.8-1.8); Alk Phos 43 U/L (50-136); Anion Gap 6 mmol/L (6-16); Aspartate Aminotrans (AST/SGOT 37 U/L (12-37); Bilirubin, Total 0.4 mg/dL (0.1-1.0); Blood Urea Nitrogen 29 mg/dL (8-24); Bun/Creatinine Ratio 19.9 (12.0-20.0); CO2, Blood 29 mmol/L (21-32); Calcium, Blood 7.7 mg/dL (8.5-10.1); Chloride, Blood 103 mmol/L (98-108); Creatinine, Blood 1.46 mg/dL (0.60-1.20); Globulin, Blood 3.6 g/dL (2.2-4.0); Glomerular Filtration Rate 53 (60-); Glucose, Blood 103 mg/dL (70-99); Potassium, Blood 2.8 mmol/L (3.5-5.5); Sodium, Blood 138 mmol/L (136-145); Total Protein, Blood 6.4 g/dL (6.4-8.2); Vancomycin, Trough 6.4 ug/mL (5.0-10.0)
--- NOTE | 2019-10-06 18:10 | NUR ---
SHIFT SUMMARY THIS ALERT AND ORIENTEDx4 PT HAS REMAINED ON ROOM AIR AND HAS BEEN UP AMBULATING MELENDEZ. TMAX TODAY 100.3. PT REQUESTED TYLENOL THIS AFTERNOON FOR A HEADACHE. POTASSIUM LEVEL WAS LOW THIS MORNING, REPLACED PER ORDERS VIA IV AND PO. TELEMETRY HAS SHOWN PT TO BE IN SINUS RHYTHM. OTHER VITALS HAVE REMAINED STABLE.
[2019-10-07 04:31] LABS: BASOPHILS ABSOLUTE AUTO 0.03 K/mm3 (0.00-0.23); BASOPHILS PERCENT AUTO 1 % (0-2); EOSINOPHILS ABSOLUTE AUTO 0.14 K/mm3 (0.00-0.68); EOSINOPHILS PERCENT AUTO 4 % (0-6); Hematocrit 32.2 % (37.0-53.0); Hemoglobin 10.6 g/dL (13.5-17.5); IMMATURE GRAN ABSOLUTE AUTO 0.01 K/mm3 (0.00-0.10); IMMATURE GRAN PERCENT AUTO 0 % (0-1); LYMPHOCYTES ABSOLUTE AUTO 0.72 K/mm3 (0.84-5.20); LYMPHOCYTES PERCENT AUTO 19 % (21-46); MONOCYTES ABSOLUTE AUTO 0.63 K/mm3 (0.16-1.47); MONOCYTES PERCENT AUTO 17 % (4-13); Mean Corpuscular HGB 28.7 pg (26.0-34.0); Mean Corpuscular HGB Conc 32.9 g/dL (31.5-36.5); Mean Corpuscular Volume 87 fL (80-100); Mean Platelet Volume 11.8 fL (9.1-12.4); NEUTROPHILS ABSOLUTE AUTO 2.27 K/mm3 (1.96-9.15); NEUTROPHILS PERCENT AUTO 60 % (41-73); Platelet Count 107 K/mm3 (150-400); RDW Coefficient Variation 13.6 % (11.7-14.2); RDW Standard Deviation 43.2 fL (35.1-46.3); Red Blood Cell Count 3.69 M/mm3 (4.30-5.90)
[2019-10-07 04:52] LABS: Albumin, Blood 2.6 g/dL (3.4-5.0); Albumin/Globulin Ratio 0.7 (0.8-1.8); Bilirubin, Total 0.3 mg/dL (0.1-1.0); Bun/Creatinine Ratio 17.6 (12.0-20.0); Calcium, Blood 7.9 mg/dL (8.5-10.1); Creatinine, Blood 1.36 mg/dL (0.60-1.20); Globulin, Blood 3.7 g/dL (2.2-4.0); Potassium, Blood 3.1 mmol/L (3.5-5.5); Total Protein, Blood 6.3 g/dL (6.4-8.2)
--- NOTE | 2019-10-07 07:24 | NUR ---
SHIFT SUMMARY PT A&O; CALLS APPROPRIATELY; VSS; SINUS RHYTHM W/ HR IN 70'S PER CLAMPER; DENIES CHEST PAIN; SLEPT WELL IN BETWEEN INTERVENTIONS; DENIES NEEDS AT THIS TIME; CALL LIGHT IN REACH; BED IN LOWEST POSITION; REPORT GIVEN TO DAY SHIFT RN.
--- NOTE | 2019-10-07 07:45 | NUR ---
INITIAL ASSESSMENT: PT SITTING UP ON THE EDGE OF THE BED. PT IS ALERT AND ORIETNED X3. PATIENT REPORTS MINIMAL PAIN IN HIS FEET, HE RATES THIS AT A 3/10. HRR. LS CTA. RT WAS CONCERNED BECAUSE WHEN THEY CAME IN THE ROOM THIS AM THE PATIENT WAS LAYING DOWN IN BED AND HIS OXYGEN SATURATION WAS 88-89 PERCENT. PATIENT SAT UPRIGHT ON THE EDGE OF THE BED AND HIS OXYGEN SATURATION CAME UP TO 95%.PT DENIES CHEST PAIN OR SOB. PT DENIES COUGH. THIS RN WILL MAKE SURE MD IS AWARE OF THE HYPOXIC EVENT. VSS. BIOX WNL ON RA. BT+. PPP. PT DENIES OTHER NEEDS AT THIS TIME. CALL LIGHT IN REACH, WILL CONTINUE TO MONITOR.
--- NOTE | 2019-10-07 08:30 | NUR ---
REPORT GIVEN TO CARTER KAUR.
--- NOTE | 2019-10-07 08:55 | NUR ---
PT MEDICATED WITH SCHEDULED MEDS PER EMAR. PT SITTING AT BEDSIDE.
--- NOTE | 2019-10-07 09:51 | NUR ---
DR STOREY TO ROOM. PENDING DC
--- NOTE | 2019-10-07 10:08 | NUR ---
PT TO BE DISCHARGED. TELE REMOVED, IV REMOVED TIP INTACT. DRESSED WITH PRESSURE DRESSING. PT UP TO SHOWER.
[2019-10-07] MEDS ORDERED: ACET325 PO (10:12)
[2019-10-07] MEDS ORDERED: Anti-Diarrheal2 MG PO (10:13)
--- NOTE | 2019-10-07 11:51 | NUR ---
pt escorted out via wc. all belongings sent home.
== END 2019-10-07 11:41 | disposition home or self-care (01) | DRG 194 ==
LOC: ER 07:44 → PCU 10:33
PROVIDERS: Emergency Medicine; ADMIT Family Medicine
DX: J18.9 Pneumonia, unspecified organism (principal); I24.8 Other forms of acute ischemic heart disease; R09.02 Hypoxemia; I10 Essential (primary) hypertension; Z87.891 Personal history of nicotine dependence; Z79.82 Long term (current) use of aspirin; E87.6 Hypokalemia; T50.2X5A Adverse effect of carbonic-anhydrase inhibitors, benzothiadiazides and other diuretics, initial encounter; Y92.9 Unspecified place or not applicable
CPT/HCPCS: 0099U; 36415; 71046; 71260; 80053; 80202; 81001; 82803; 83605; 83880; 84145; 84443; 84484; 85025; 85379; 87040; 87086; 87493; 87804; 93005; 93010; 93306; 94640; 94667; 94760; 96360; 99284-25; A9270; J0696; J1650; J2405; J3370; J3480; J7030; J7050; Q9967

== ENCOUNTER 2020-01-10 00:20 | Day surgery (SDC) | payer OTHER ==
[~2020-01-10 00:20] MED LIST changes: +Anti-Diarrheal2 MG PO; +HYDCHL25 PO; +LOSARTAN POTAS100 MG PO
== END 2020-01-10 22:36 | disposition home or self-care (01) ==
LOC: WOUND 00:20
DX: L89.892 Pressure ulcer of other site, stage 2 (principal)
CPT/HCPCS: G0463

== ENCOUNTER 2020-02-01 00:11 | Day surgery (SDC) | payer OTHER | END 2020-02-01 22:49 | disposition home or self-care (01) | LOC: WOUND 00:11 | DX: L89.892 Pressure ulcer of other site, stage 2 (principal); I10 Essential (primary) hypertension; Z79.899 Other long term (current) drug therapy; Z79.82 Long term (current) use of aspirin ==

== ENCOUNTER 2020-02-08 00:32 | Day surgery (SDC) | payer OTHER | END 2020-02-08 22:42 | disposition home or self-care (01) | LOC: WOUND 00:32 | DX: L89.892 Pressure ulcer of other site, stage 2 (principal); I10 Essential (primary) hypertension ==

== ENCOUNTER 2020-02-15 00:15 | Day surgery (SDC) | payer OTHER | END 2020-02-15 23:00 | disposition home or self-care (01) | LOC: WOUND 00:15 | DX: L89.892 Pressure ulcer of other site, stage 2 (principal); I10 Essential (primary) hypertension; Z79.82 Long term (current) use of aspirin; Z79.899 Other long term (current) drug therapy ==

== ENCOUNTER 2020-02-22 00:31 | Day surgery (SDC) | payer OTHER | END 2020-02-22 22:35 | disposition home or self-care (01) | LOC: WOUND 00:31 | DX: L89.892 Pressure ulcer of other site, stage 2 (principal); I10 Essential (primary) hypertension; Z79.82 Long term (current) use of aspirin; Z79.899 Other long term (current) drug therapy ==

== ENCOUNTER 2020-02-29 00:25 | Day surgery (SDC) | payer OTHER | END 2020-02-29 23:11 | disposition home or self-care (01) | LOC: WOUND 00:25 | DX: L89.892 Pressure ulcer of other site, stage 2 (principal); I10 Essential (primary) hypertension; Z79.899 Other long term (current) drug therapy; Z79.82 Long term (current) use of aspirin ==

== ENCOUNTER 2020-03-14 00:06 | Day surgery (SDC) | payer OTHER | END 2020-03-14 22:37 | disposition home or self-care (01) | LOC: WOUND 00:06 | DX: L89.892 Pressure ulcer of other site, stage 2 (principal); I10 Essential (primary) hypertension; G62.9 Polyneuropathy, unspecified; Z79.899 Other long term (current) drug therapy; Z79.82 Long term (current) use of aspirin | CPT/HCPCS: G0463 ==

== ENCOUNTER 2020-05-02 00:18 | Day surgery (SDC) | payer OTHER | END 2020-05-02 23:10 | disposition home or self-care (01) | LOC: WOUND 00:18 | DX: L89.892 Pressure ulcer of other site, stage 2 (principal) | CPT/HCPCS: G0463 ==

== ENCOUNTER 2020-06-09 00:36 | Day surgery (SDC) | payer OTHER | END 2020-06-09 22:48 | disposition home or self-care (01) | LOC: WOUND 00:36 | DX: L89.892 Pressure ulcer of other site, stage 2 (principal); I10 Essential (primary) hypertension; Z79.899 Other long term (current) drug therapy | CPT/HCPCS: G0463 ==

== ENCOUNTER 2020-06-23 02:05 | Day surgery (SDC) | payer OTHER | END 2020-06-23 22:38 | disposition home or self-care (01) | LOC: WOUND 02:05 | DX: L89.892 Pressure ulcer of other site, stage 2 (principal); I10 Essential (primary) hypertension; Z79.899 Other long term (current) drug therapy; Z79.82 Long term (current) use of aspirin | CPT/HCPCS: G0463 ==

== ENCOUNTER 2020-07-07 01:12 | Day surgery (SDC) | payer OTHER | END 2020-07-07 22:52 | disposition home or self-care (01) | LOC: WOUND 01:12 | DX: L89.892 Pressure ulcer of other site, stage 2 (principal); I10 Essential (primary) hypertension; Z79.899 Other long term (current) drug therapy | CPT/HCPCS: G0463 ==

== ENCOUNTER 2020-07-28 00:52 | Day surgery (SDC) | payer OTHER | END 2020-07-28 23:56 | disposition home or self-care (01) | LOC: WOUND 00:52 | DX: L89.622 Pressure ulcer of left heel, stage 2 (principal); I10 Essential (primary) hypertension; G62.9 Polyneuropathy, unspecified; Z79.82 Long term (current) use of aspirin; Z79.899 Other long term (current) drug therapy ==

== ENCOUNTER 2020-08-03 07:34 | Emergency (ER) | payer OTHER ==
[~2020-08-03] VITALS: Ht 193 cm; Wt 113.4 kg
[2020-08-03] MEDS ORDERED: LEVFLO500 PO (08:38)
== END 2020-08-03 08:51 | disposition home or self-care (01) ==
LOC: ER 07:34
DX: L03.116 Cellulitis of left lower limb (principal); I10 Essential (primary) hypertension; K21.9 Gastro-esophageal reflux disease without esophagitis; Z79.82 Long term (current) use of aspirin; Z88.8 Allergy status to other drugs, medicaments and biological substances; Z79.899 Other long term (current) drug therapy; Z87.891 Personal history of nicotine dependence
CPT/HCPCS: 99283

== ENCOUNTER 2020-08-11 01:44 | Day surgery (SDC) | payer OTHER ==
[~2020-08-11 01:44] MED LIST changes: +LEVFLO500 PO
== END 2020-08-11 22:45 | disposition home or self-care (01) ==
LOC: WOUND 01:44
DX: L89.622 Pressure ulcer of left heel, stage 2 (principal); I10 Essential (primary) hypertension; G62.9 Polyneuropathy, unspecified; Z79.82 Long term (current) use of aspirin; Z79.899 Other long term (current) drug therapy; Z88.8 Allergy status to other drugs, medicaments and biological substances
CPT/HCPCS: G0463

== ENCOUNTER 2020-08-18 01:08 | Day surgery (SDC) | payer OTHER | END 2020-08-18 23:11 | disposition home or self-care (01) | LOC: WOUND 01:08 | DX: L89.892 Pressure ulcer of other site, stage 2 (principal); I10 Essential (primary) hypertension; Z79.899 Other long term (current) drug therapy; Z79.82 Long term (current) use of aspirin | CPT/HCPCS: G0463 ==

== ENCOUNTER 2020-08-25 00:45 | Day surgery (SDC) | payer OTHER | END 2020-08-25 23:16 | disposition home or self-care (01) | LOC: WOUND 00:45 | DX: L89.892 Pressure ulcer of other site, stage 2 (principal); I10 Essential (primary) hypertension; Z79.899 Other long term (current) drug therapy | CPT/HCPCS: G0463 ==

== ENCOUNTER 2020-09-05 12:47 | Day surgery (SDC) | payer OTHER | END 2020-09-05 22:42 | disposition home or self-care (01) | LOC: WOUND 12:47 | DX: L89.622 Pressure ulcer of left heel, stage 2 (principal); G62.9 Polyneuropathy, unspecified; I10 Essential (primary) hypertension; Z88.8 Allergy status to other drugs, medicaments and biological substances; Z79.82 Long term (current) use of aspirin; Z79.899 Other long term (current) drug therapy | CPT/HCPCS: Q4133 ==

== ENCOUNTER 2020-09-12 00:47 | Day surgery (SDC) | payer SELFPAY | END 2020-09-12 22:46 | disposition home or self-care (01) | LOC: WOUND 00:47 | DX: L89.892 Pressure ulcer of other site, stage 2 (principal); I10 Essential (primary) hypertension; G62.9 Polyneuropathy, unspecified ==

== ENCOUNTER 2020-09-22 02:03 | Day surgery (SDC) | payer OTHER ==
[~2020-09-22 02:03] MED LIST changes: +OMEP20ER PO; -Omeprazole20 M1 PO; +SPIRONOLACTONE1 EACH; -Spironolactone1 EACH PO
== END 2020-09-22 23:44 | disposition home or self-care (01) ==
LOC: WOUND 02:03
DX: L89.892 Pressure ulcer of other site, stage 2 (principal); I10 Essential (primary) hypertension; G62.9 Polyneuropathy, unspecified; Z88.8 Allergy status to other drugs, medicaments and biological substances; Z79.82 Long term (current) use of aspirin; Z79.899 Other long term (current) drug therapy
CPT/HCPCS: A9270; G0463

== ENCOUNTER 2020-09-28 01:40 | Day surgery (SDC) | payer OTHER | END 2020-09-28 22:36 | disposition home or self-care (01) | LOC: WOUND 01:40 | DX: L89.892 Pressure ulcer of other site, stage 2 (principal); I10 Essential (primary) hypertension; Z79.82 Long term (current) use of aspirin; Z79.899 Other long term (current) drug therapy; Z88.8 Allergy status to other drugs, medicaments and biological substances | CPT/HCPCS: A9270 ==

== ENCOUNTER 2020-10-06 00:42 | Day surgery (SDC) | payer OTHER | END 2020-10-06 22:42 | disposition home or self-care (01) | LOC: WOUND 00:42 | DX: L89.892 Pressure ulcer of other site, stage 2 (principal) | CPT/HCPCS: A9270; G0463 ==

== ENCOUNTER 2020-10-20 02:34 | Day surgery (SDC) | payer OTHER | END 2020-10-20 22:40 | disposition home or self-care (01) | LOC: WOUND 02:34 | DX: L89.892 Pressure ulcer of other site, stage 2 (principal); I10 Essential (primary) hypertension | CPT/HCPCS: A9270 ==

== ENCOUNTER 2020-10-27 00:52 | Day surgery (SDC) | payer OTHER | END 2020-10-27 23:50 | disposition home or self-care (01) | LOC: WOUND 00:52 | DX: L89.892 Pressure ulcer of other site, stage 2 (principal); I10 Essential (primary) hypertension; G62.9 Polyneuropathy, unspecified; Z87.81 Personal history of (healed) traumatic fracture | CPT/HCPCS: A9270 ==

== ENCOUNTER 2020-11-03 01:58 | Day surgery (SDC) | payer OTHER | END 2020-11-03 22:41 | disposition home or self-care (01) | LOC: WOUND 01:58 | DX: L89.892 Pressure ulcer of other site, stage 2 (principal); G62.9 Polyneuropathy, unspecified; I10 Essential (primary) hypertension; Z87.81 Personal history of (healed) traumatic fracture | CPT/HCPCS: A9270 ==

== ENCOUNTER 2020-11-17 01:01 | Day surgery (SDC) | payer OTHER | END 2020-11-17 23:04 | disposition home or self-care (01) | LOC: WOUND 01:01 | DX: L89.892 Pressure ulcer of other site, stage 2 (principal); I10 Essential (primary) hypertension; G62.9 Polyneuropathy, unspecified | CPT/HCPCS: A9270 ==

== ENCOUNTER 2020-11-27 13:39 | Day surgery (SDC) | payer OTHER | END 2020-11-27 22:55 | disposition home or self-care (01) | LOC: WOUND 13:39 | DX: L89.892 Pressure ulcer of other site, stage 2 (principal); I10 Essential (primary) hypertension; G62.9 Polyneuropathy, unspecified; Z87.81 Personal history of (healed) traumatic fracture | CPT/HCPCS: A9270 ==

== ENCOUNTER 2020-12-05 00:42 | Day surgery (SDC) | payer OTHER | END 2020-12-05 22:40 | disposition home or self-care (01) | LOC: WOUND 00:42 | DX: L89.892 Pressure ulcer of other site, stage 2 (principal); I10 Essential (primary) hypertension; G62.9 Polyneuropathy, unspecified | CPT/HCPCS: A9270 ==

== ENCOUNTER 2020-12-11 00:15 | Day surgery (SDC) | payer OTHER | END 2020-12-11 22:47 | disposition home or self-care (01) | LOC: WOUND 00:15 | DX: L89.892 Pressure ulcer of other site, stage 2 (principal); I10 Essential (primary) hypertension | CPT/HCPCS: A9270 ==

== ENCOUNTER 2020-12-18 01:42 | Day surgery (SDC) | payer OTHER ==
[~2020-12-18 01:42] MED LIST changes: -OMEP20ER PO; +Omeprazole20 M1 PO; -SPIRONOLACTONE1 EACH; +Spironolactone1 EACH PO
== END 2020-12-18 22:46 | disposition home or self-care (01) ==
LOC: WOUND 01:42
DX: L89.892 Pressure ulcer of other site, stage 2 (principal); I10 Essential (primary) hypertension
CPT/HCPCS: A9270; G0463

== ENCOUNTER 2021-01-19 00:54 | Day surgery (SDC) | payer OTHER ==
[~2021-01-19 00:54] MED LIST changes: +OMEP20ER PO; -Omeprazole20 M1 PO; +SPIRONOLACTONE1 EACH; -Spironolactone1 EACH PO
== END 2021-01-19 23:00 | disposition home or self-care (01) ==
LOC: WOUND 00:54
DX: L89.892 Pressure ulcer of other site, stage 2 (principal); I10 Essential (primary) hypertension
CPT/HCPCS: A9270

== ENCOUNTER 2021-01-26 00:46 | Day surgery (SDC) | payer OTHER | END 2021-01-26 22:37 | disposition home or self-care (01) | LOC: WOUND 00:46 | DX: L89.892 Pressure ulcer of other site, stage 2 (principal); I10 Essential (primary) hypertension | CPT/HCPCS: 87071; 87075; 87205; A9270; G0463 ==

== ENCOUNTER 2021-02-09 04:37 | Day surgery (SDC) | payer OTHER | END 2021-02-09 22:40 | disposition home or self-care (01) | LOC: WOUND 04:37 | DX: L89.892 Pressure ulcer of other site, stage 2 (principal); G62.9 Polyneuropathy, unspecified; I10 Essential (primary) hypertension | CPT/HCPCS: A9270 ==

== ENCOUNTER 2021-02-16 04:25 | Day surgery (SDC) | payer OTHER | END 2021-02-17 00:31 | disposition home or self-care (01) | LOC: WOUND 04:25 | DX: L89.892 Pressure ulcer of other site, stage 2 (principal); I10 Essential (primary) hypertension; G62.9 Polyneuropathy, unspecified | CPT/HCPCS: A9270; G0463 ==

== ENCOUNTER 2021-03-01 00:36 | Day surgery (SDC) | payer OTHER | END 2021-03-01 22:45 | disposition home or self-care (01) | LOC: WOUND 00:36 | DX: L89.892 Pressure ulcer of other site, stage 2 (principal); I10 Essential (primary) hypertension | CPT/HCPCS: A9270; G0463 ==

== ENCOUNTER 2021-03-08 02:36 | Day surgery (SDC) | payer OTHER | END 2021-03-08 23:10 | disposition home or self-care (01) | LOC: WOUND 02:36 | DX: L89.892 Pressure ulcer of other site, stage 2 (principal) | CPT/HCPCS: A9270; G0463 ==

== ENCOUNTER 2021-03-16 00:48 | Day surgery (SDC) | payer OTHER ==
[~2021-03-16 00:48] MED LIST changes: -OMEP20ER PO; +Omeprazole20 M1 PO; -SPIRONOLACTONE1 EACH; +Spironolactone1 EACH PO
== END 2021-03-16 23:00 | disposition home or self-care (01) ==
LOC: WOUND 00:48
DX: L89.892 Pressure ulcer of other site, stage 2 (principal); I10 Essential (primary) hypertension
CPT/HCPCS: A9270; G0463

== ENCOUNTER 2021-03-23 12:18 | Day surgery (SDC) | payer OTHER ==
[~2021-03-23 12:18] MED LIST changes: +OMEP20ER PO; -Omeprazole20 M1 PO; +SPIRONOLACTONE1 EACH; -Spironolactone1 EACH PO
== END 2021-03-23 22:41 | disposition home or self-care (01) ==
LOC: WOUND 12:18
DX: L89.892 Pressure ulcer of other site, stage 2 (principal); I10 Essential (primary) hypertension; G62.9 Polyneuropathy, unspecified
CPT/HCPCS: A9270

== ENCOUNTER 2021-03-25 13:45 | Inpatient (IN) | payer OTHER ==
[~2021-03-25] VITALS: Ht 193 cm; Wt 130.2 kg
[2021-03-25 14:32] LABS: BASOPHILS ABSOLUTE AUTO 0.08 K/mm3 (0.00-0.23); BASOPHILS PERCENT AUTO 1 % (0-2); EOSINOPHILS ABSOLUTE AUTO 0.13 K/mm3 (0.00-0.68); EOSINOPHILS PERCENT AUTO 1 % (0-6); Hematocrit 36.5 % (37.0-53.0); Hemoglobin 11.2 g/dL (13.5-17.5); IMMATURE GRAN ABSOLUTE AUTO 0.07 K/mm3 (0.00-0.10); IMMATURE GRAN PERCENT AUTO 1 % (0-1); LYMPHOCYTES ABSOLUTE AUTO 1.05 K/mm3 (0.84-5.20); LYMPHOCYTES PERCENT AUTO 7 % (21-46); MONOCYTES ABSOLUTE AUTO 0.98 K/mm3 (0.16-1.47); MONOCYTES PERCENT AUTO 7 % (4-13); Mean Corpuscular HGB 26.3 pg (26.0-34.0); Mean Corpuscular HGB Conc 30.7 g/dL (31.5-36.5); Mean Corpuscular Volume 86 fL (80-100); Mean Platelet Volume 10.4 fL (9.1-12.4); NEUTROPHILS ABSOLUTE AUTO 12.86 K/mm3 (1.96-9.15); NEUTROPHILS PERCENT AUTO 85 % (41-73); Platelet Count 274 K/mm3 (150-400); RDW Coefficient Variation 13.6 % (11.7-14.2); RDW Standard Deviation 42.5 fL (35.1-46.3); Red Blood Cell Count 4.26 M/mm3 (4.30-5.90); White Blood Cell Count 15.17 K/mm3 (4.00-11.30)
[2021-03-25 14:52] LABS: Alanine Aminotransfer (ALT/SGP 22 U/L (12-78); Albumin, Blood 3.3 g/dL (3.4-5.0); Albumin/Globulin Ratio 0.6 (0.8-1.8); Alk Phos 83 U/L (50-136); Anion Gap 6 mmol/L (6-16); Aspartate Aminotrans (AST/SGOT 16 U/L (12-37); Bilirubin, Total 0.4 mg/dL (0.1-1.0); Blood Urea Nitrogen 26 mg/dL (8-24); Bun/Creatinine Ratio 21.1 (12.0-20.0); CO2, Blood 28 mmol/L (21-32); Calcium, Blood 9.6 mg/dL (8.5-10.1); Chloride, Blood 102 mmol/L (98-108); Creatinine, Blood 1.23 mg/dL (0.60-1.20); Globulin, Blood 5.6 g/dL (2.2-4.0); Glomerular Filtration Rate >60 (60-); Glucose, Blood 104 mg/dL (70-99); Potassium, Blood 3.7 mmol/L (3.5-5.5); Sodium, Blood 136 mmol/L (136-145); Total Protein, Blood 8.9 g/dL (6.4-8.2)
[2021-03-25] MEDS ORDERED: ASPI325 PO (18:26)
[2021-03-25] MEDS ORDERED: HYDCHL25 PO (18:28)
--- NOTE | 2021-03-25 21:00 | NUR ---
ASSUMED CARE OF PATIENT AT APPROXIMATELY 2004 FROM ED RN HANH. PATIENT ALERT AND ORIENTED X4; ONE ASSIST OUT OF BED FROM ED TO PCU STRETCHER; ACCOMPANIED PATIENT TO ROOM AND ASSISTED WITH ADMIT QUESTIONS. DR. CAVAZOS ARRIVED TO ROOM MINUTES AFTER PATIENT ARRIVED AND STATED PATIENT NEEDS SURGERY DUE TO INFECTION IN FOOT; PATIENT AND VERY ANXIOUS AND WORRIED ABOUT PATIENT LOOSING FOOT DUE TO EMPLOYMENT AND BILLS. PATIENT REPORTS HIS FEET ARE BOTH NUMB AND HE HAS TINGLING CHRONICALLY BUT NOT DIABETIC. PATIENT DENIES PAIN, DIZZINESS OR NAUSEA. PATIENT REPORTS DRINKING SPRITE IN ER UP UNTIL 1800 WHEN BROUGHT SOME FROM VENDING MACHINE; PATIENT ARRIVED WITH [employer]ile[employer] BAG ON STRETCHER BUT INSTRUCTED NOT TO EAT DUE TO BE NPO AND PATIENT REPORTS HE HAS NOT ATE SINCE AROUND NOON TODAY. PIV INFUSING IV ABX. ADMISSION COMPLETE; PHOTOS TAKEN OF RIGHT WOUND AND PLACED IN CHART; LEFT FOOT HAS WOUNDS BUT NO PHOTOS TAKEN DUE TO BEING PREPPED FOR SURGERY. CONSENTS SIGNED. NSR ON TELE; OXYGEN SATURATION ABOVE 90% ON ROOM AIR.
--- NOTE | 2021-03-25 21:19 | NUR ---
PATIENT LEFT FOR SURGERY VIA GURNEY WITH CONSENTS; NATASHA MARIE ACCOMPANIED PATIENT
--- NOTE | 2021-03-25 22:35 | NUR ---
03/25/21 2238 My Weems PT ON SCHEDULED ANTIBIOTICS, NO PAS STOCKINGS NEEDED PER MD
--- NOTE | 2021-03-26 00:40 | NUR ---
PATIENT ARRIVED BACK FROM ICU RECOVERY POST OP; RIGHT FOOT WRAPPED IN DANELLE BANDAGE; TRANSFER VIA SLIDE SHEET AND MAX ASSIST; COMPLAINING OF SHOULDER PAIN.
--- NOTE | 2021-03-26 03:41 | NUR ---
SHOULDER PAIN; CALLED TO REPORT PATIENT REPORTING SEVERE SHOULDER PAIN FROM PREVIOUS INJURY AND HOW HE HAD IT POSISTIONED DURING THE SURGERY; ALL PRN'S GIVEN AND NO RELIEF; CALLED DR. WARD; ORDERS RECIEVED.
[2021-03-26 04:15] LABS: BASOPHILS ABSOLUTE AUTO 0.02 K/mm3 (0.00-0.23); BASOPHILS PERCENT AUTO 0 % (0-2); EOSINOPHILS ABSOLUTE AUTO 0.01 K/mm3 (0.00-0.68); EOSINOPHILS PERCENT AUTO 0 % (0-6); Hematocrit 28.6 % (37.0-53.0); Hemoglobin 8.9 g/dL (13.5-17.5); IMMATURE GRAN ABSOLUTE AUTO 0.07 K/mm3 (0.00-0.10); IMMATURE GRAN PERCENT AUTO 1 % (0-1); LYMPHOCYTES ABSOLUTE AUTO 0.71 K/mm3 (0.84-5.20); LYMPHOCYTES PERCENT AUTO 8 % (21-46); MONOCYTES PERCENT AUTO 2 % (4-13); Mean Corpuscular HGB 25.9 pg (26.0-34.0); Mean Corpuscular HGB Conc 31.1 g/dL (31.5-36.5); Mean Corpuscular Volume 83 fL (80-100); Mean Platelet Volume 10.1 fL (9.1-12.4); NEUTROPHILS ABSOLUTE AUTO 8.39 K/mm3 (1.96-9.15); NEUTROPHILS PERCENT AUTO 89 % (41-73); Platelet Count 235 K/mm3 (150-400); RDW Coefficient Variation 13.6 % (11.7-14.2); RDW Standard Deviation 41.8 fL (35.1-46.3); Red Blood Cell Count 3.43 M/mm3 (4.30-5.90)
[2021-03-26 04:34] LABS: Albumin, Blood 2.6 g/dL (3.4-5.0); Albumin/Globulin Ratio 0.6 (0.8-1.8); Bilirubin, Total 0.3 mg/dL (0.1-1.0); Bun/Creatinine Ratio 21.1 (12.0-20.0); Calcium, Blood 8.6 mg/dL (8.5-10.1); Creatinine, Blood 1.33 mg/dL (0.60-1.20); Globulin, Blood 4.6 g/dL (2.2-4.0); Total Protein, Blood 7.2 g/dL (6.4-8.2)
--- NOTE | 2021-03-26 06:44 | NUR ---
NO ACUTE CHANGES TO REPORT. PATIENT SLEPT ABOUT THREE HOURS. VSS.
--- NOTE | 2021-03-26 07:30 | NUR ---
INITIAL ASSESSMENT: PT IS AWAKE SITTING UP IN BED. ALERT AND OX3. PT REPORTS 7/10 RIGHT SHOULDER PAIN FROM AN OLD INJURY, PT BELIEVES THIS COULD HAVE BEEN EXACERBATED BY POSITIONING IN THE OR LAST NIGHT. PT REPOSITIONED AND WILL MEDICATE WITH TYLENOL. LS CTA, OXYGEN TITRATED DOWN TO RA, SATS 95%. BT+. SR PER TELEMETRY. PATIENT HAS BULKY DRESSING WITH DANELLE WRAP TO THE RLE, DRESSING CDI NOT TO BE CHANGED-ONLY BY DR. CAVAZOS. PT REPORTS TINLING IN HIS RIGHT LEG, STATES THIS IS CHRONIC-UNKNOWN CAUSE. VSS. AFTER RECIEVING BEDSIDE REPORT FROM NOC RN TIMOTHY, PT WAS UPSET ABOUT HIS NOT BEING ABLE TO COME IN, SHE HAD BEEN WITH HIM THE WHOLE PREVIOUS SHIFT. PT STATES HE WILL LEAVE IF HIS CANNOT COME IN. EDUCATED PATIENT ON THE RISKS OF LEAVING THIS EARLY POST-OP AND BENEFITS OF RECIEVING ANTIBIOTIC TX FOR INFECTION OF THAT RIGHT FOOT. PT AGREED TO STAY UNTIL I CAN TALK WITH THE CHARGE NURSE ABOUT VISITING RESTRICTIONS.
--- NOTE | 2021-03-26 10:30 | NUR ---
AM MEDS GIVEN. TYLENOL GIVEN FOR PAIN, PTS PAIN LEVEL IS NOW DOWN TO A 4/10 PT STATES THIS IS TOLERABLE. DR. MIXON HAS BEEN IN TO SEE THE PATIENT, HOME MEDIDCATIONS VERIFIED AND REORDERD. WOUND CARE TO THE LLE PER WOUND CLINIC ORDERS. PT DENIES NEEDS AT THIS TIME. REPORT GIVEN TO AYESHA DANIELLE PATIENT HAS BEEN DOWN GRADED TO SURGICAL STATUS. PT TRANSFERRED TO 208.
--- NOTE | 2021-03-26 17:04 | NUR ---
TRANSFER TO UNIT FROM PCU ABOUT 1200. POD 1 RIGHT TRANSMETARSAL AMP AND I&D. GAUZE AND DANELLE WRAP DRESSING. STRICT NWB AND ELEVATION OF RIGHT LEG. ULCER TO LEFT FOOT WITH DRESSING IN PLACE. MEDICATED FOR PAIN PER EMAR. GABAPENTIN FOR LEG SPASMS. ROUTINE IV FLUIDS AND ABX RUNNING. DRESSING TO LEFT FOOT CHANGED THIS SHIFT. BEDREST AT THIS TIME. TOLERATING REGULAR DIET AND FLUIDS. USING URINAL IN BED. ALERT AND ORIENTED. AT BEDSIDE. WILL REPORT TO WATER OPERATOR RN.
--- NOTE | 2021-03-26 17:14 | NUR ---
CARE COORDINATION REFERRAL - ADMIT: 03/25/21 DISCHARGE: DX: GAS GANGRENE R-FOOT CC: KWILCOX SOFÍA CALL: RESIDENCE: HOME CAREGIVER: TIMOTHY FUNES (FRIEND) HOME PHONE: DX: ANEMIA, ANXIETY, CELLULITIS LEFT FOOT, CVA, GERD, HTN, SEE LIST DME: WOUND SUPPLIES CCM: NONE HOME HEALTH: NONE SUMMARY: 03/26/21- PER CHART REVIEW WITH DR. MIXON, PT IS LUCIANO CANO TODAY. PT HAD AMPUTATION YESTERDAY AND HE IS THREATENING TO LEAVE AMA TODAY. NO D/C PLAN IN PLACE AT THIS TIME. -SJ
[2021-03-26 18:25] LABS: Vancomycin, Trough 19.2 ug/mL (5.0-10.0)
[2021-03-26] MEDS ORDERED: ZINC15 (18:34)
[2021-03-27 05:09] LABS: BASOPHILS ABSOLUTE AUTO 0.05 K/mm3 (0.00-0.23); BASOPHILS PERCENT AUTO 1 % (0-2); EOSINOPHILS ABSOLUTE AUTO 0.29 K/mm3 (0.00-0.68); EOSINOPHILS PERCENT AUTO 3 % (0-6); Hematocrit 28.7 % (37.0-53.0); Hemoglobin 8.9 g/dL (13.5-17.5); IMMATURE GRAN ABSOLUTE AUTO 0.06 K/mm3 (0.00-0.10); IMMATURE GRAN PERCENT AUTO 1 % (0-1); LYMPHOCYTES PERCENT AUTO 14 % (21-46); MONOCYTES ABSOLUTE AUTO 0.78 K/mm3 (0.16-1.47); MONOCYTES PERCENT AUTO 8 % (4-13); Mean Corpuscular HGB 26.1 pg (26.0-34.0); Mean Corpuscular Volume 84 fL (80-100); Mean Platelet Volume 9.7 fL (9.1-12.4); NEUTROPHILS ABSOLUTE AUTO 7.59 K/mm3 (1.96-9.15); NEUTROPHILS PERCENT AUTO 75 % (41-73); Platelet Count 251 K/mm3 (150-400); RDW Coefficient Variation 13.5 % (11.7-14.2); RDW Standard Deviation 42.1 fL (35.1-46.3); Red Blood Cell Count 3.41 M/mm3 (4.30-5.90); White Blood Cell Count 10.17 K/mm3 (4.00-11.30)
[2021-03-27 05:29] LABS: Anion Gap 5 mmol/L (6-16); Blood Urea Nitrogen 23 mg/dL (8-24); Bun/Creatinine Ratio 20.4 (12.0-20.0); CO2, Blood 29 mmol/L (21-32); Calcium, Blood 8.7 mg/dL (8.5-10.1); Chloride, Blood 102 mmol/L (98-108); Creatinine, Blood 1.13 mg/dL (0.60-1.20); Glomerular Filtration Rate >60 (60-); Glucose, Blood 119 mg/dL (70-99); Potassium, Blood 3.9 mmol/L (3.5-5.5); Sodium, Blood 136 mmol/L (136-145)
--- NOTE | 2021-03-27 05:47 | NUR ---
SHIFT SUMMARY POD2 R TRANSMETATARSAL AMPUTATION c WASHOUT, A/O X4, TOLERATING PO, STRICT BEDREST AND RLE ELEVATION, PAIN MANAGED PER EMAR, RECEIVING IV ABX, SPOUSE AT BEDSIDE. NO ACUTE EVENTS THIS SHIFT, CALL LIGHT IN REACH, WILL CTM AND REPORT TO ONCOMING DAY RN.
--- NOTE | 2021-03-27 18:44 | NUR ---
SUMMARY: PT IS POD2 R FOOT TRANSMETATARSAL AMPUTATION. A/O, VSS. SURGICAL SITE WNL, DR. CAVAZOS CHANGED DRESSING TONIGHT. R LEG ELEVATED ALL DAY TODAY, STRICT NWB AND ELEVATION. PT HAD X2 BM'S USING A BEDPAN. IV ANTIBIOTICS INFUSED AND PAIN MEDICATION GIVEN PER EMAR. PT PRESENT WHILE DR. CAVAZOS IN THE ROOM TONIGHT. PLAN DISCUSSED WITH PT AND FOR WOUND VAC PLACEMENT ON FRIDAY, 03/30 AND CONTINUED IV ANTIBIOTICS. NO ACUTE CONCERNS AT THIS TIME. WILL PASS REPORT TO VIOLA KAUR.
--- NOTE | 2021-03-28 06:39 | NUR ---
SHIFT SUMMARY POD3 R TRANSMETATARSAL AMPUTATION, A/O X4, VSS, TOLERATING PO, BEDREST BUT ABLE TO STAND/PIVOT TO BSC, ABLE TO FOLLOW WEIGHT BEARING STATUS WHEN TRANSFERRING, PAIN SIGNIFICANTLY BETTER TONIGHT COMPARED TO YESTERDAY. NO ACUTE EVENTS THIS SHIFT. CALL LIGHT IN REACH, WILL CTM AND REPORT TO DAY RN.
[2021-03-28 10:47] LABS: Vancomycin, Trough 17.3 ug/mL (5.0-10.0)
--- NOTE | 2021-03-28 18:01 | NUR ---
SHIFT SUMMARY PT HAS BEEN A/O X4. USING BSC WHILE MAINTAINING NWB PRECAUTIONS. PAIN MANAGED WITH PO PAIN MEDS AND IV DILAUDED PRN. PT IS TOLERATING PO INTAKE AND VOIDING. R FOOT HAS BEEN IN DANELLE WRAP, WHICH IS CDI. DRESSING TO L FOOT CHANGED TODAY. R FOOT HAS BEEN ELEVATED ON PILLOWS IN BED. HAS BEEN IN TO VISIT PT TODAY. NO ACUTE CHANGES.
--- NOTE | 2021-03-29 06:16 | NUR ---
PT A/OX4. VSS ON RA. PT C/O PAIN AFTER ALL PRN PAIN MEDS GIVEN, HOSPITALIST PACKAGING SPECIALIST ORDERED FENTANYL. FENTANYL GIVEN W/ GOOD EFFECT. LEGS ELEVATED ON PILLOWS. DRESSINGS CDI. PATIENT USING URINAL. USING CALL LIGHT TO MAKE NEEDS KNOWN.
--- NOTE | 2021-03-29 12:39 | NUR ---
LOVENOX PT CONCERNED ABOUT TAKING LOVENOX. SPOKE WITH DR CAVAZOS; OKAY TO CONTINUE LOVENOX PER HOSPITALIST/EFM.
--- NOTE | 2021-03-29 16:51 | NUR ---
SHIFT SUMMARY PT HAS BEEN A/O X4 TODAY. HE HAS BEEN RESTING WITH R LEG ELEVATED ON PILLOWS IN BED MOST OF THE SHIFT. USING URINAL/BSC TODAY. THERAPY DID WORK WITH PT AND STATES HE CAN SAFELY WALK TO BATHROOM WITH FWW AND GAIT BELT WHILE MAINTAINING NWB PRECAUTIONS. PT HAS BEEN C/O PAIN IN R SHOULDER AND R FOOT TODAY; MEDICATED PER EMAR. PT WAS ABLE TO VISIT WITH TODAY WELL. PT HAS BEEN TOLERATING PO INTAKE, VOIDING, AND HAVING BM'S. NO ACUTE CHANGES THIS SHIFT.
--- NOTE | 2021-03-29 17:46 | NUR ---
Update 03/29/21: Met with pt. and Lachelle to discuss discharge planning/care coordination. PT. has recommended pt. to return home with [facility]. Discussed case with physical therapist Hari. Pt. able to ambulate with a walker. Only concern is one step in the front of the home and a slope. We will request that PT evaluate home safety and barriers to mobility. The [employer] assists with installing wheelchair ramps. That could possibly be an option. We discussed pt. returning home with public assist from the fire department to safely go inside. We request HH to visit pt. as soonest available time. [facility] referral will also be placed to provide pt. with additional resources as needed. Pt. agreeable to this. Pt. will need a tall walker, toilet seat riser, and shower chair at home. We will request the walker to be delivered from [facility] to patient at hospital. All other DME has been requested to be delivered directly to the patient's home. Pt. will be receiving wound care tomorrow at 3:30pm prior to discharge. I will discuss with Dr. Dupree the option of having [facility] provide the wound care until the pt. is able to make progress with home PT.
--- NOTE | 2021-03-30 04:14 | NUR ---
PT A/OX4. VSS ON RA. PAIN MANAGED WELL W/ CURRENT PAIN REGIME. DRESSING CDI,FOOT ELEVATED ON PILLOWS. PT USING URINAL. AT BEDSIDE ATTENTIVE TO PT.
[2021-03-30 05:04] LABS: BASOPHILS ABSOLUTE AUTO 0.05 K/mm3 (0.00-0.23); BASOPHILS PERCENT AUTO 1 % (0-2); EOSINOPHILS ABSOLUTE AUTO 0.24 K/mm3 (0.00-0.68); EOSINOPHILS PERCENT AUTO 3 % (0-6); Hematocrit 30.9 % (37.0-53.0); Hemoglobin 9.8 g/dL (13.5-17.5); IMMATURE GRAN ABSOLUTE AUTO 0.11 K/mm3 (0.00-0.10); IMMATURE GRAN PERCENT AUTO 2 % (0-1); LYMPHOCYTES ABSOLUTE AUTO 0.88 K/mm3 (0.84-5.20); LYMPHOCYTES PERCENT AUTO 12 % (21-46); MONOCYTES ABSOLUTE AUTO 0.72 K/mm3 (0.16-1.47); MONOCYTES PERCENT AUTO 10 % (4-13); Mean Corpuscular HGB 26.3 pg (26.0-34.0); Mean Corpuscular HGB Conc 31.7 g/dL (31.5-36.5); Mean Corpuscular Volume 83 fL (80-100); Mean Platelet Volume 9.4 fL (9.1-12.4); NEUTROPHILS ABSOLUTE AUTO 5.53 K/mm3 (1.96-9.15); NEUTROPHILS PERCENT AUTO 73 % (41-73); Platelet Count 269 K/mm3 (150-400); RDW Coefficient Variation 13.6 % (11.7-14.2); RDW Standard Deviation 40.8 fL (35.1-46.3); Red Blood Cell Count 3.73 M/mm3 (4.30-5.90); White Blood Cell Count 7.53 K/mm3 (4.00-11.30)
[2021-03-30 05:23] LABS: Anion Gap 6 mmol/L (6-16); Blood Urea Nitrogen 17 mg/dL (8-24); Bun/Creatinine Ratio 14.4 (12.0-20.0); CO2, Blood 30 mmol/L (21-32); Calcium, Blood 9.3 mg/dL (8.5-10.1); Chloride, Blood 99 mmol/L (98-108); Creatinine, Blood 1.18 mg/dL (0.60-1.20); Glomerular Filtration Rate >60 (60-); Glucose, Blood 116 mg/dL (70-99); Sodium, Blood 135 mmol/L (136-145)
--- NOTE | 2021-03-30 07:13 | NUR ---
pt sleeping wakes to verbal stimuli at bedside plan for discahe today this afternoon discussed plan
--- NOTE | 2021-03-30 07:33 | NUR ---
dr larsen by to see pt dressing changed
--- NOTE | 2021-03-30 10:27 | NUR ---
hh nurse at bedside called dr larsen office message left re wound measurments
[2021-03-30 10:48] LABS: Creatinine, Blood 1.16 mg/dL (0.60-1.20); Vancomycin, Trough 16.8 ug/mL (5.0-10.0)
--- NOTE | 2021-03-30 11:38 | NUR ---
BONDS BY TO SEE PT MEDS GIVEN SCHED
--- NOTE | 2021-03-30 12:51 | NUR ---
dr bonds by to see pt abx ordered
[2021-03-30] MEDS ORDERED: OXYC5 PO (13:04)
[2021-03-30] MEDS ORDERED: SULTRIDS PO (13:05)
[2021-03-30] MEDS ORDERED: METR500 PO (13:05)
[2021-03-30] MEDS ORDERED: Acetaminophen650 M1 PO (13:06)
--- NOTE | 2021-03-30 15:03 | NUR ---
diacharge instructions reviewed with pt and with awaiting walker pt wheeled to appointment in wound care clinic downstairs rx given earlier pt's abx called trey walls no acute changes
--- NOTE | 2021-03-30 17:13 | NUR ---
Update 03/30/21: Request sent to [facility] for authorization wound vac. Paperwork signed and faxed as well. Contacted Pawan with [facility] [phone] and he advised to go ahead with the wound care center applying the wound vac. Pt. has appointment with wound center at 3:15 TODAY. THEY HAVE AGREED TO APPLY WOUND VAC. [facility] ORDERED FOR PT. THEY HAVE MET WITH PT. AND WILL BE ATTEMPTING TO SCHEDULE FRIDAY FOR WOUND VAC CHANGE. PT. WILL SCHEDULE FOR FRIDAY WITH THE WOUND CENTER IN CASE IS UNABLE TO PROVIDE VISIT UNTIL FRIDAY. PT. AWARE THAT CHANING THE WOUND VAC 3 TIMES A WEEK IS NECESSARY. HE IS SCHEDULED FOR A HOSPITAL F/U VIA TELEHEALTH WITH DR. STOREY NEXT WEEK. SHOWER CHAIR AND WALKER ORDERED THROUGH [facility]. WALKER DELIVERED TO HOSPITAL. LONG DISCUSSION WITH PT. REGARDING SAFETY AT HOME AND REQUESTING ASSISTANCE WHEN NEEDED. PT. FEELS HE IS SAFE TO DISCHARGE. WE WILL ALSO REQUEST [facility] TO VISIT PT. IN HOME NEXT WEEK TO ENSURE ALL HIS NEEDS ARE MET AND ASSIST WITH RESOURCES NEEDED. SOFÍA TEAM WILL BE FOLLOWING UP WITH PT. ALSO.
== END 2021-03-30 15:00 | disposition home health service (06) | DRG 853 ==
LOC: ER 13:45 → PCU 18:18 → SURS 03-26 11:19
PROVIDERS: Family Medicine; Pharmacist; Physician Assistant; Student in an Organized Health Care Education/Training Program; ADMIT Hospitalist
PROC: 0Y6M0Z9 Detachment at Right Foot, Partial 1st Ray, Open Approach (ICD-10-PCS; principal; 2021-03-26)
PROC: 0Y6M0ZB Detachment at Right Foot, Partial 2nd Ray, Open Approach (ICD-10-PCS; 2021-03-26)
PROC: 0Y6M0ZC Detachment at Right Foot, Partial 3rd Ray, Open Approach (ICD-10-PCS; 2021-03-26)
PROC: 0Y6M0ZD Detachment at Right Foot, Partial 4th Ray, Open Approach (ICD-10-PCS; 2021-03-26)
PROC: 0Y6M0ZF Detachment at Right Foot, Partial 5th Ray, Open Approach (ICD-10-PCS; 2021-03-26)
DX: A41.9 Sepsis, unspecified organism (principal); M72.6 Necrotizing fasciitis; A48.0 Gas gangrene; L03.115 Cellulitis of right lower limb; I10 Essential (primary) hypertension; R33.9 Retention of urine, unspecified; Z88.8 Allergy status to other drugs, medicaments and biological substances; Z86.73 Personal history of transient ischemic attack (TIA), and cerebral infarction without residual deficits; Z79.899 Other long term (current) drug therapy; Z79.82 Long term (current) use of aspirin; Z87.891 Personal history of nicotine dependence; G62.9 Polyneuropathy, unspecified
CPT/HCPCS: 36415; 73630; 73700; 80048; 80053; 80202; 82565; 83036; 83605; 85025; 85651; 87040; 88307; 93005; 93010; 94760; 96365; 96366; 96367; 96375; 97110; 97116; 97162; 99285-25; A9270; J1100; J1170; J1650; J1885; J2001; J2405; J2543; J2704; J2710; J3010; J3370; J7030; J7050

== ENCOUNTER 2021-03-30 01:54 | Day surgery (SDC) | payer OTHER ==
[~2021-03-30 01:54] MED LIST changes: +ASPI325 PO; +ZINC15
[2021-03-30] MEDS ORDERED: OXYC5 PO (13:04)
[2021-03-30] MEDS ORDERED: METR500 PO (13:05)
[2021-03-30] MEDS ORDERED: SULTRIDS PO (13:05)
[2021-03-30] MEDS ORDERED: Acetaminophen650 M1 PO (13:06)
== END 2021-03-30 12:00 | disposition home or self-care (01) ==
LOC: WOUND 01:54
DX: L89.892 Pressure ulcer of other site, stage 2 (principal); T87.89 Other complications of amputation stump; G62.9 Polyneuropathy, unspecified; I10 Essential (primary) hypertension; Y83.5 Amputation of limb(s) as the cause of abnormal reaction of the patient, or of later complication, without mention of misadventure at the time of the procedure; Z89.431 Acquired absence of right foot
CPT/HCPCS: A9270

== ENCOUNTER 2021-03-31 12:42 | Emergency (ER) | payer OTHER ==
[~2021-03-31] VITALS: Ht 193 cm; Wt 136.1 kg
[~2021-03-31 12:42] MED LIST changes: +Acetaminophen650 M1 PO; +METR500 PO; +OXYC5 PO; +SULTRIDS PO
== END 2021-03-31 14:29 | disposition home or self-care (01) ==
LOC: ER 12:42
DX: Z48.01 Encounter for change or removal of surgical wound dressing (principal); Z79.899 Other long term (current) drug therapy; Z87.891 Personal history of nicotine dependence
CPT/HCPCS: 99282

== ENCOUNTER 2021-04-06 01:14 | Day surgery (SDC) | payer OTHER | END 2021-04-06 23:15 | disposition home or self-care (01) | LOC: WOUND 01:14 | DX: T81.89XD Other complications of procedures, not elsewhere classified, subsequent encounter (principal); L89.892 Pressure ulcer of other site, stage 2 | CPT/HCPCS: A9270 ==

== ENCOUNTER 2021-04-09 08:52 | Day surgery (SDC) | payer OTHER | END 2021-04-09 22:58 | disposition home or self-care (01) | LOC: WOUND 08:52 | DX: T81.89XD Other complications of procedures, not elsewhere classified, subsequent encounter (principal); L89.892 Pressure ulcer of other site, stage 2; Z89.421 Acquired absence of other right toe(s); I10 Essential (primary) hypertension | CPT/HCPCS: 87071; 87075; 87205; A9270; G0463 ==

== ENCOUNTER 2021-04-13 00:32 | Day surgery (SDC) | payer OTHER | END 2021-04-13 23:00 | disposition home or self-care (01) | LOC: WOUND 00:32 | DX: L89.892 Pressure ulcer of other site, stage 2 (principal); T81.89XD Other complications of procedures, not elsewhere classified, subsequent encounter; Z89.421 Acquired absence of other right toe(s) | CPT/HCPCS: A9270; G0463 ==

== ENCOUNTER 2021-04-20 01:37 | Day surgery (SDC) | payer OTHER | END 2021-04-20 23:36 | disposition home or self-care (01) | LOC: WOUND 01:37 | DX: L89.892 Pressure ulcer of other site, stage 2 (principal); T81.89XA Other complications of procedures, not elsewhere classified, initial encounter; Z89.421 Acquired absence of other right toe(s) | CPT/HCPCS: A9270 ==

== ENCOUNTER 2021-04-25 02:45 | Day surgery (SDC) | payer OTHER | END 2021-04-25 23:02 | disposition home or self-care (01) | LOC: WOUND 02:45 | DX: T81.89XD Other complications of procedures, not elsewhere classified, subsequent encounter (principal); L89.892 Pressure ulcer of other site, stage 2; Z89.421 Acquired absence of other right toe(s) ==

== ENCOUNTER 2021-04-27 01:07 | Day surgery (SDC) | payer OTHER | END 2021-04-27 23:54 | disposition home or self-care (01) | LOC: WOUND 01:07 | DX: L89.892 Pressure ulcer of other site, stage 2 (principal); T81.31XA Disruption of external operation (surgical) wound, not elsewhere classified, initial encounter; T81.89XD Other complications of procedures, not elsewhere classified, subsequent encounter; Z89.421 Acquired absence of other right toe(s) | CPT/HCPCS: A9270 ==

== ENCOUNTER 2021-04-30 08:00 | Day surgery (SDC) | payer OTHER | END 2021-04-30 23:59 | disposition home or self-care (01) | LOC: WOUND 08:00 | DX: L89.892 Pressure ulcer of other site, stage 2 (principal); T81.89XD Other complications of procedures, not elsewhere classified, subsequent encounter; Z89.421 Acquired absence of other right toe(s) ==

== ENCOUNTER 2021-05-02 00:38 | Day surgery (SDC) | payer OTHER | END 2021-05-02 23:07 | disposition home or self-care (01) | LOC: WOUND 00:38 | DX: L89.892 Pressure ulcer of other site, stage 2 (principal); T81.89XD Other complications of procedures, not elsewhere classified, subsequent encounter; Z89.421 Acquired absence of other right toe(s) ==

== ENCOUNTER 2021-05-04 02:33 | Day surgery (SDC) | payer OTHER | END 2021-05-04 23:14 | disposition home or self-care (01) | LOC: WOUND 02:33 | DX: T81.89XD Other complications of procedures, not elsewhere classified, subsequent encounter (principal); T81.31XA Disruption of external operation (surgical) wound, not elsewhere classified, initial encounter; L89.892 Pressure ulcer of other site, stage 2; Z89.421 Acquired absence of other right toe(s) | CPT/HCPCS: A9270 ==

== ENCOUNTER 2021-05-07 02:48 | Day surgery (SDC) | payer OTHER | END 2021-05-07 23:05 | disposition home or self-care (01) | LOC: WOUND 02:48 | DX: L89.892 Pressure ulcer of other site, stage 2 (principal); T81.89XD Other complications of procedures, not elsewhere classified, subsequent encounter; Z89.421 Acquired absence of other right toe(s) ==

== ENCOUNTER 2021-05-09 01:25 | Day surgery (SDC) | payer OTHER | END 2021-05-09 23:01 | disposition home or self-care (01) | LOC: WOUND 01:25 | DX: L89.892 Pressure ulcer of other site, stage 2 (principal); T81.89XD Other complications of procedures, not elsewhere classified, subsequent encounter; Z89.421 Acquired absence of other right toe(s) ==

== ENCOUNTER 2021-05-11 03:03 | Day surgery (SDC) | payer OTHER | END 2021-05-11 23:28 | disposition home or self-care (01) | LOC: WOUND 03:03 | DX: L89.892 Pressure ulcer of other site, stage 2 (principal); T81.89XD Other complications of procedures, not elsewhere classified, subsequent encounter; T81.31XA Disruption of external operation (surgical) wound, not elsewhere classified, initial encounter; Z89.421 Acquired absence of other right toe(s) | CPT/HCPCS: A9270 ==

== ENCOUNTER 2021-05-16 02:33 | Day surgery (SDC) | payer OTHER | END 2021-05-16 23:46 | disposition home or self-care (01) | LOC: WOUND 02:33 | DX: L89.892 Pressure ulcer of other site, stage 2 (principal); T81.89XA Other complications of procedures, not elsewhere classified, initial encounter; Y83.9 Surgical procedure, unspecified as the cause of abnormal reaction of the patient, or of later complication, without mention of misadventure at the time of the procedure; Z89.421 Acquired absence of other right toe(s) | CPT/HCPCS: G0463 ==

== ENCOUNTER 2021-05-18 01:30 | Day surgery (SDC) | payer OTHER | END 2021-05-18 23:01 | disposition home or self-care (01) | LOC: WOUND 01:30 | DX: L89.892 Pressure ulcer of other site, stage 2 (principal); T81.89XA Other complications of procedures, not elsewhere classified, initial encounter; Z89.421 Acquired absence of other right toe(s); Y83.8 Other surgical procedures as the cause of abnormal reaction of the patient, or of later complication, without mention of misadventure at the time of the procedure | CPT/HCPCS: A9270 ==

== ENCOUNTER 2021-05-21 01:18 | Day surgery (SDC) | payer OTHER | END 2021-05-21 23:03 | disposition home or self-care (01) | LOC: WOUND 01:18 | DX: L89.892 Pressure ulcer of other site, stage 2 (principal); T81.89XD Other complications of procedures, not elsewhere classified, subsequent encounter; Z89.421 Acquired absence of other right toe(s) ==

== ENCOUNTER 2021-05-23 00:55 | Day surgery (SDC) | payer OTHER | END 2021-05-23 23:56 | disposition home or self-care (01) | LOC: WOUND 00:55 | DX: L89.892 Pressure ulcer of other site, stage 2 (principal); T81.89XD Other complications of procedures, not elsewhere classified, subsequent encounter; Z89.421 Acquired absence of other right toe(s) | CPT/HCPCS: A9270 ==

== ENCOUNTER 2021-05-25 01:49 | Day surgery (SDC) | payer OTHER | END 2021-05-25 23:22 | disposition home or self-care (01) | LOC: WOUND 01:49 | DX: L89.892 Pressure ulcer of other site, stage 2 (principal); T81.89XD Other complications of procedures, not elsewhere classified, subsequent encounter; Z89.421 Acquired absence of other right toe(s) ==

== ENCOUNTER 2021-05-28 02:51 | Day surgery (SDC) | payer OTHER | END 2021-05-28 22:55 | disposition home or self-care (01) | LOC: WOUND 02:51 | DX: T81.89XD Other complications of procedures, not elsewhere classified, subsequent encounter (principal); L89.892 Pressure ulcer of other site, stage 2; Z89.421 Acquired absence of other right toe(s) ==

== ENCOUNTER 2021-05-30 00:11 | Day surgery (SDC) | payer OTHER | END 2021-05-30 23:57 | disposition home or self-care (01) | LOC: WOUND 00:11 | DX: T81.89XD Other complications of procedures, not elsewhere classified, subsequent encounter (principal); L89.892 Pressure ulcer of other site, stage 2; Z89.421 Acquired absence of other right toe(s) ==

== ENCOUNTER 2021-06-01 04:30 | Day surgery (SDC) | payer OTHER | END 2021-06-01 23:09 | disposition home or self-care (01) | LOC: WOUND 04:30 | DX: T81.89XD Other complications of procedures, not elsewhere classified, subsequent encounter (principal); T81.31XA Disruption of external operation (surgical) wound, not elsewhere classified, initial encounter; L89.892 Pressure ulcer of other site, stage 2; Z89.421 Acquired absence of other right toe(s); I10 Essential (primary) hypertension | CPT/HCPCS: A9270 ==

== ENCOUNTER 2021-06-04 05:57 | Day surgery (SDC) | payer OTHER | END 2021-06-04 23:27 | disposition home or self-care (01) | LOC: WOUND 05:57 | DX: T81.89XD Other complications of procedures, not elsewhere classified, subsequent encounter (principal); L89.892 Pressure ulcer of other site, stage 2; Z89.421 Acquired absence of other right toe(s) | CPT/HCPCS: G0463 ==

== ENCOUNTER 2021-06-06 02:45 | Day surgery (SDC) | payer OTHER | END 2021-06-06 22:46 | disposition home or self-care (01) | LOC: WOUND 02:45 | DX: T81.89XD Other complications of procedures, not elsewhere classified, subsequent encounter (principal); L89.892 Pressure ulcer of other site, stage 2; Z89.421 Acquired absence of other right toe(s) | CPT/HCPCS: G0463 ==

== ENCOUNTER 2021-06-08 00:46 | Day surgery (SDC) | payer OTHER | END 2021-06-08 12:00 | disposition home or self-care (01) | LOC: WOUND 00:46 | DX: T81.31XA Disruption of external operation (surgical) wound, not elsewhere classified, initial encounter (principal); T81.89XD Other complications of procedures, not elsewhere classified, subsequent encounter; L89.892 Pressure ulcer of other site, stage 2; Z89.421 Acquired absence of other right toe(s); I10 Essential (primary) hypertension; G62.9 Polyneuropathy, unspecified | CPT/HCPCS: A9270; G0463 ==

== ENCOUNTER 2021-06-11 10:01 | Day surgery (SDC) | payer OTHER | END 2021-06-11 23:00 | disposition home or self-care (01) | LOC: WOUND 10:01 | DX: T81.89XD Other complications of procedures, not elsewhere classified, subsequent encounter (principal); L89.892 Pressure ulcer of other site, stage 2; R93.6 Abnormal findings on diagnostic imaging of limbs; Z89.421 Acquired absence of other right toe(s) | CPT/HCPCS: G0463 ==

== ENCOUNTER 2021-06-13 02:12 | Day surgery (SDC) | payer OTHER | END 2021-06-13 23:00 | disposition home or self-care (01) | LOC: WOUND 02:12 | DX: T81.89XD Other complications of procedures, not elsewhere classified, subsequent encounter (principal); L89.892 Pressure ulcer of other site, stage 2; R93.6 Abnormal findings on diagnostic imaging of limbs; Z89.421 Acquired absence of other right toe(s) | CPT/HCPCS: G0463 ==

== ENCOUNTER 2021-06-22 04:22 | Day surgery (SDC) | payer OTHER | END 2021-06-22 23:38 | disposition home or self-care (01) | LOC: WOUND 04:22 | DX: T81.31XA Disruption of external operation (surgical) wound, not elsewhere classified, initial encounter (principal); T81.89XD Other complications of procedures, not elsewhere classified, subsequent encounter; L97.812 Non-pressure chronic ulcer of other part of right lower leg with fat layer exposed; L89.892 Pressure ulcer of other site, stage 2; Z89.421 Acquired absence of other right toe(s); I10 Essential (primary) hypertension; G62.9 Polyneuropathy, unspecified | CPT/HCPCS: A9270 ==

== ENCOUNTER 2021-06-29 03:45 | Day surgery (SDC) | payer OTHER | END 2021-06-29 22:51 | disposition home or self-care (01) | LOC: WOUND 03:45 | DX: T87.81 Dehiscence of amputation stump (principal); L89.892 Pressure ulcer of other site, stage 2; L97.512 Non-pressure chronic ulcer of other part of right foot with fat layer exposed; Z89.421 Acquired absence of other right toe(s); Y83.5 Amputation of limb(s) as the cause of abnormal reaction of the patient, or of later complication, without mention of misadventure at the time of the procedure | CPT/HCPCS: A9270; G0463 ==

== ENCOUNTER 2021-07-06 05:49 | Day surgery (SDC) | payer OTHER | END 2021-07-06 23:33 | disposition home or self-care (01) | LOC: WOUND 05:49 | DX: T81.89XD Other complications of procedures, not elsewhere classified, subsequent encounter (principal); L97.812 Non-pressure chronic ulcer of other part of right lower leg with fat layer exposed; L89.892 Pressure ulcer of other site, stage 2; Z89.421 Acquired absence of other right toe(s) | CPT/HCPCS: A9270; G0463 ==

== ENCOUNTER 2021-07-12 08:00 | Day surgery (SDC) | payer OTHER | END 2021-07-12 23:59 | disposition home or self-care (01) | LOC: WOUND 08:00 | DX: L89.892 Pressure ulcer of other site, stage 2 (principal); L97.812 Non-pressure chronic ulcer of other part of right lower leg with fat layer exposed; T81.31XA Disruption of external operation (surgical) wound, not elsewhere classified, initial encounter; T81.89XD Other complications of procedures, not elsewhere classified, subsequent encounter; Z89.421 Acquired absence of other right toe(s); I10 Essential (primary) hypertension | CPT/HCPCS: A9270; G0463 ==

== ENCOUNTER 2021-07-20 04:43 | Day surgery (SDC) | payer OTHER | END 2021-07-20 23:12 | disposition home or self-care (01) | LOC: WOUND 04:43 | DX: L97.812 Non-pressure chronic ulcer of other part of right lower leg with fat layer exposed (principal); L89.892 Pressure ulcer of other site, stage 2; T81.89XD Other complications of procedures, not elsewhere classified, subsequent encounter; Z89.421 Acquired absence of other right toe(s); I10 Essential (primary) hypertension | CPT/HCPCS: A9270; G0463 ==

== ENCOUNTER 2021-07-27 05:24 | Day surgery (SDC) | payer OTHER | END 2021-07-27 22:51 | disposition home or self-care (01) | LOC: WOUND 05:24 | DX: T81.89XD Other complications of procedures, not elsewhere classified, subsequent encounter (principal); T81.31XA Disruption of external operation (surgical) wound, not elsewhere classified, initial encounter; L97.812 Non-pressure chronic ulcer of other part of right lower leg with fat layer exposed; L89.892 Pressure ulcer of other site, stage 2; Z89.421 Acquired absence of other right toe(s); I10 Essential (primary) hypertension | CPT/HCPCS: A9270; G0463 ==

== ENCOUNTER 2021-08-10 01:39 | Day surgery (SDC) | payer OTHER | END 2021-08-10 23:16 | disposition home or self-care (01) | LOC: WOUND 01:39 | DX: L89.892 Pressure ulcer of other site, stage 2 (principal); T81.89XD Other complications of procedures, not elsewhere classified, subsequent encounter; L97.812 Non-pressure chronic ulcer of other part of right lower leg with fat layer exposed; Z89.421 Acquired absence of other right toe(s) | CPT/HCPCS: A9270; G0463 ==

== ENCOUNTER 2021-08-24 05:15 | Day surgery (SDC) | payer OTHER | END 2021-08-24 23:12 | disposition home or self-care (01) | LOC: WOUND 05:15 | DX: L89.892 Pressure ulcer of other site, stage 2 (principal); T81.89XD Other complications of procedures, not elsewhere classified, subsequent encounter; L97.812 Non-pressure chronic ulcer of other part of right lower leg with fat layer exposed; Z89.421 Acquired absence of other right toe(s); I10 Essential (primary) hypertension | CPT/HCPCS: A9270 ==

== ENCOUNTER 2021-09-14 07:43 | Day surgery (SDC) | payer OTHER | END 2021-09-14 23:47 | disposition home or self-care (01) | LOC: WOUND 07:43 | DX: L89.892 Pressure ulcer of other site, stage 2 (principal); L97.812 Non-pressure chronic ulcer of other part of right lower leg with fat layer exposed; T81.89XD Other complications of procedures, not elsewhere classified, subsequent encounter; Z89.421 Acquired absence of other right toe(s) | CPT/HCPCS: A9270 ==

== ENCOUNTER 2021-09-28 05:37 | Day surgery (SDC) | payer OTHER | END 2021-09-28 12:00 | disposition home or self-care (01) | LOC: WOUND 05:37 | DX: L89.892 Pressure ulcer of other site, stage 2 (principal); Z89.422 Acquired absence of other left toe(s) | CPT/HCPCS: A9270; G0463 ==

== ENCOUNTER 2021-10-12 00:44 | Day surgery (SDC) | payer OTHER | END 2021-10-12 23:30 | disposition home or self-care (01) | LOC: WOUND 00:44 | DX: L89.892 Pressure ulcer of other site, stage 2 (principal); T81.89XD Other complications of procedures, not elsewhere classified, subsequent encounter; L97.812 Non-pressure chronic ulcer of other part of right lower leg with fat layer exposed; Z89.421 Acquired absence of other right toe(s) | CPT/HCPCS: A9270; G0463 ==

== ENCOUNTER 2021-10-26 03:05 | Day surgery (SDC) | payer OTHER | END 2021-10-26 22:50 | disposition home or self-care (01) | LOC: WOUND 03:05 | DX: L89.892 Pressure ulcer of other site, stage 2 (principal); T81.30XA Disruption of wound, unspecified, initial encounter; I10 Essential (primary) hypertension; Y83.8 Other surgical procedures as the cause of abnormal reaction of the patient, or of later complication, without mention of misadventure at the time of the procedure; Z89.421 Acquired absence of other right toe(s) | CPT/HCPCS: A9270; G0463 ==

== ENCOUNTER 2021-11-09 01:19 | Day surgery (SDC) | payer OTHER | END 2021-11-09 22:46 | disposition home or self-care (01) | LOC: WOUND 01:19 | DX: L89.892 Pressure ulcer of other site, stage 2 (principal); T87.81 Dehiscence of amputation stump; I10 Essential (primary) hypertension; G62.9 Polyneuropathy, unspecified | CPT/HCPCS: A9270; G0463 ==

== ENCOUNTER 2021-11-23 02:42 | Day surgery (SDC) | payer OTHER | END 2021-11-23 23:15 | disposition home or self-care (01) | LOC: WOUND 02:42 | DX: L89.892 Pressure ulcer of other site, stage 2 (principal); T81.31XA Disruption of external operation (surgical) wound, not elsewhere classified, initial encounter; Z89.421 Acquired absence of other right toe(s) | CPT/HCPCS: A9270 ==

== ENCOUNTER 2021-12-07 01:48 | Day surgery (SDC) | payer OTHER | END 2021-12-07 22:59 | disposition home or self-care (01) | LOC: WOUND 01:48 | DX: L89.892 Pressure ulcer of other site, stage 2 (principal); T81.31XA Disruption of external operation (surgical) wound, not elsewhere classified, initial encounter; L97.812 Non-pressure chronic ulcer of other part of right lower leg with fat layer exposed; Z89.421 Acquired absence of other right toe(s) | CPT/HCPCS: A9270 ==

== ENCOUNTER 2021-12-21 03:06 | Day surgery (SDC) | payer OTHER | END 2021-12-21 23:08 | disposition home or self-care (01) | LOC: WOUND 03:06 | DX: L89.892 Pressure ulcer of other site, stage 2 (principal); T87.81 Dehiscence of amputation stump; G62.9 Polyneuropathy, unspecified; I10 Essential (primary) hypertension | CPT/HCPCS: A9270; G0463 ==

== ENCOUNTER 2022-01-09 00:44 | Day surgery (SDC) | payer OTHER | END 2022-01-09 22:45 | disposition home or self-care (01) | LOC: WOUND 00:44 | DX: L89.892 Pressure ulcer of other site, stage 2 (principal); T87.81 Dehiscence of amputation stump; G62.9 Polyneuropathy, unspecified; I10 Essential (primary) hypertension; Z89.421 Acquired absence of other right toe(s); Y83.9 Surgical procedure, unspecified as the cause of abnormal reaction of the patient, or of later complication, without mention of misadventure at the time of the procedure | CPT/HCPCS: A9270 ==

== ENCOUNTER 2022-01-18 01:53 | Day surgery (SDC) | payer OTHER | END 2022-01-18 22:57 | disposition home or self-care (01) | LOC: WOUND 01:53 | DX: L89.892 Pressure ulcer of other site, stage 2 (principal); T87.81 Dehiscence of amputation stump; L97.812 Non-pressure chronic ulcer of other part of right lower leg with fat layer exposed; Z89.421 Acquired absence of other right toe(s); I10 Essential (primary) hypertension | CPT/HCPCS: A9270 ==

== ENCOUNTER 2022-01-30 01:42 | Day surgery (SDC) | payer OTHER | END 2022-01-30 22:52 | disposition home or self-care (01) | LOC: WOUND 01:42 | DX: L89.892 Pressure ulcer of other site, stage 2 (principal); T81.89XD Other complications of procedures, not elsewhere classified, subsequent encounter; L97.812 Non-pressure chronic ulcer of other part of right lower leg with fat layer exposed; I10 Essential (primary) hypertension; Z89.421 Acquired absence of other right toe(s) | CPT/HCPCS: A9270; G0463 ==

== ENCOUNTER 2022-02-13 02:07 | Day surgery (SDC) | payer OTHER | END 2022-02-18 23:26 | disposition home or self-care (01) | LOC: WOUND 02:07 | DX: L89.892 Pressure ulcer of other site, stage 2 (principal); L97.812 Non-pressure chronic ulcer of other part of right lower leg with fat layer exposed; T87.81 Dehiscence of amputation stump; I10 Essential (primary) hypertension; Z89.421 Acquired absence of other right toe(s) | CPT/HCPCS: A9270; G0463 ==

== ENCOUNTER 2022-02-27 01:19 | Day surgery (SDC) | payer OTHER | END 2022-02-27 22:40 | disposition home or self-care (01) | LOC: WOUND 01:19 | DX: L89.892 Pressure ulcer of other site, stage 2 (principal); T81.31XA Disruption of external operation (surgical) wound, not elsewhere classified, initial encounter; L97.812 Non-pressure chronic ulcer of other part of right lower leg with fat layer exposed; T81.89XD Other complications of procedures, not elsewhere classified, subsequent encounter; I10 Essential (primary) hypertension; Z89.421 Acquired absence of other right toe(s) | CPT/HCPCS: A9270; G0463 ==

== ENCOUNTER 2022-03-13 08:00 | Day surgery (SDC) | payer OTHER | END 2022-03-13 23:59 | disposition home or self-care (01) | LOC: WOUND 08:00 | DX: L89.892 Pressure ulcer of other site, stage 2 (principal); T87.81 Dehiscence of amputation stump; I10 Essential (primary) hypertension; Y83.8 Other surgical procedures as the cause of abnormal reaction of the patient, or of later complication, without mention of misadventure at the time of the procedure | CPT/HCPCS: A9270; G0463 ==

== ENCOUNTER 2022-03-27 02:37 | Day surgery (SDC) | payer OTHER | END 2022-03-29 22:57 | disposition home or self-care (01) | LOC: WOUND 02:37 | DX: T81.89XD Other complications of procedures, not elsewhere classified, subsequent encounter (principal); L97.812 Non-pressure chronic ulcer of other part of right lower leg with fat layer exposed; L89.892 Pressure ulcer of other site, stage 2; Z89.421 Acquired absence of other right toe(s); I10 Essential (primary) hypertension | CPT/HCPCS: A9270; G0463 ==

== ENCOUNTER 2022-04-10 12:00 | Day surgery (SDC) | payer OTHER | END 2022-04-11 23:05 | disposition home or self-care (01) | LOC: WOUND 12:00 | DX: T81.89XD Other complications of procedures, not elsewhere classified, subsequent encounter (principal); L89.892 Pressure ulcer of other site, stage 2; L97.812 Non-pressure chronic ulcer of other part of right lower leg with fat layer exposed; Z89.421 Acquired absence of other right toe(s); I10 Essential (primary) hypertension | CPT/HCPCS: A9270; G0463 ==

== ENCOUNTER 2022-04-24 01:29 | Day surgery (SDC) | payer OTHER | END 2022-04-24 23:36 | disposition home or self-care (01) | LOC: WOUND 01:29 | DX: L89.892 Pressure ulcer of other site, stage 2 (principal); L97.812 Non-pressure chronic ulcer of other part of right lower leg with fat layer exposed; T81.89XD Other complications of procedures, not elsewhere classified, subsequent encounter; I10 Essential (primary) hypertension; Z89.421 Acquired absence of other right toe(s) | CPT/HCPCS: A9270; G0463 ==

== ENCOUNTER 2022-05-08 03:47 | Day surgery (SDC) | payer OTHER | END 2022-05-08 22:43 | disposition home or self-care (01) | LOC: WOUND 03:47 | DX: L89.892 Pressure ulcer of other site, stage 2 (principal); T81.89XA Other complications of procedures, not elsewhere classified, initial encounter; L97.812 Non-pressure chronic ulcer of other part of right lower leg with fat layer exposed; I10 Essential (primary) hypertension; T87.89 Other complications of amputation stump; Y83.8 Other surgical procedures as the cause of abnormal reaction of the patient, or of later complication, without mention of misadventure at the time of the procedure; Z89.421 Acquired absence of other right toe(s) | CPT/HCPCS: A9270; G0463 ==

== ENCOUNTER 2022-05-22 07:39 | Day surgery (SDC) | payer OTHER | END 2022-05-22 23:34 | disposition home or self-care (01) | LOC: WOUND 07:39 | DX: L89.894 Pressure ulcer of other site, stage 4 (principal); L89.892 Pressure ulcer of other site, stage 2; T87.89 Other complications of amputation stump | CPT/HCPCS: A9270; G0463 ==

== ENCOUNTER 2022-06-07 03:05 | Day surgery (SDC) | payer OTHER | END 2022-06-07 23:09 | disposition home or self-care (01) | LOC: WOUND 03:05 | DX: L89.894 Pressure ulcer of other site, stage 4 (principal); L97.812 Non-pressure chronic ulcer of other part of right lower leg with fat layer exposed; T81.89XD Other complications of procedures, not elsewhere classified, subsequent encounter; Z89.421 Acquired absence of other right toe(s); I10 Essential (primary) hypertension | CPT/HCPCS: G0463 ==

== ENCOUNTER 2022-06-21 03:21 | Day surgery (SDC) | payer OTHER | END 2022-06-21 23:26 | disposition home or self-care (01) | LOC: WOUND 03:21 | DX: L89.894 Pressure ulcer of other site, stage 4 (principal); L97.812 Non-pressure chronic ulcer of other part of right lower leg with fat layer exposed; Z89.421 Acquired absence of other right toe(s); T81.89XD Other complications of procedures, not elsewhere classified, subsequent encounter; I10 Essential (primary) hypertension; G62.9 Polyneuropathy, unspecified | CPT/HCPCS: A9270; G0463 ==

== ENCOUNTER 2022-07-05 01:57 | Day surgery (SDC) | payer OTHER | END 2022-07-05 23:02 | disposition home or self-care (01) | LOC: WOUND 01:57 | DX: L89.894 Pressure ulcer of other site, stage 4 (principal); Z89.421 Acquired absence of other right toe(s) | CPT/HCPCS: G0463 ==

== ENCOUNTER 2022-07-26 00:42 | Day surgery (SDC) | payer OTHER | END 2022-07-26 22:45 | disposition home or self-care (01) | LOC: WOUND 00:42 | DX: L89.894 Pressure ulcer of other site, stage 4 (principal); I10 Essential (primary) hypertension; Z89.421 Acquired absence of other right toe(s); L97.812 Non-pressure chronic ulcer of other part of right lower leg with fat layer exposed | CPT/HCPCS: A9270; G0463 ==

== ENCOUNTER 2022-08-09 02:21 | Day surgery (SDC) | payer OTHER | END 2022-08-09 22:47 | disposition home or self-care (01) | LOC: WOUND 02:21 | DX: L89.894 Pressure ulcer of other site, stage 4 (principal); Z89.421 Acquired absence of other right toe(s); G62.9 Polyneuropathy, unspecified; I10 Essential (primary) hypertension | CPT/HCPCS: A9270; G0463 ==

== ENCOUNTER 2022-08-25 13:22 | Emergency (ER) | payer OTHER ==
[~2022-08-25] VITALS: Ht 193 cm; Wt 117.9 kg
[2022-08-25 14:26] LABS: BASOPHILS ABSOLUTE AUTO 0.05 K/mm3 (0.00-0.23); BASOPHILS PERCENT AUTO 1 % (0-2); EOSINOPHILS ABSOLUTE AUTO 0.04 K/mm3 (0.00-0.68); EOSINOPHILS PERCENT AUTO 1 % (0-6); Hematocrit 38.4 % (37.0-53.0); Hemoglobin 12.7 g/dL (13.5-17.5); IMMATURE GRAN ABSOLUTE AUTO 0.04 K/mm3 (0.00-0.10); IMMATURE GRAN PERCENT AUTO 1 % (0-1); LYMPHOCYTES ABSOLUTE AUTO 1.21 K/mm3 (0.84-5.20); LYMPHOCYTES PERCENT AUTO 15 % (21-46); MONOCYTES PERCENT AUTO 13 % (4-13); Mean Corpuscular HGB 27.3 pg (26.0-34.0); Mean Corpuscular HGB Conc 33.1 g/dL (31.5-36.5); Mean Corpuscular Volume 83 fL (80-100); Mean Platelet Volume 10.2 fL (9.1-12.4); NEUTROPHILS ABSOLUTE AUTO 5.74 K/mm3 (1.96-9.15); NEUTROPHILS PERCENT AUTO 70 % (41-73); Platelet Count 272 K/mm3 (150-400); RDW Coefficient Variation 13.7 % (11.7-14.2); Red Blood Cell Count 4.65 M/mm3 (4.30-5.90); White Blood Cell Count 8.18 K/mm3 (4.00-11.30)
[2022-08-25 14:29] LABS: Albumin, Blood 3.6 g/dL (3.4-5.0); Albumin/Globulin Ratio 0.7 (0.8-1.8); Bilirubin, Total 0.7 mg/dL (0.1-1.0); Bun/Creatinine Ratio 12.7 (12.0-20.0); Calcium, Blood 9.4 mg/dL (8.5-10.1); Creatinine, Blood 1.26 mg/dL (0.60-1.20); Potassium, Blood 3.5 mmol/L (3.5-5.5); Total Protein, Blood 8.6 g/dL (6.4-8.2)
[2022-08-25] MEDS ORDERED: DOXY100 PO (16:21)
[2022-08-25] MEDS ORDERED: ONDA4ODT MM (16:21)
== END 2022-08-25 18:00 | disposition home or self-care (01) ==
LOC: ER 13:22
PROVIDERS: Physician Assistant
DX: L89.892 Pressure ulcer of other site, stage 2 (principal); I10 Essential (primary) hypertension; Z79.899 Other long term (current) drug therapy; Z79.82 Long term (current) use of aspirin; Z87.891 Personal history of nicotine dependence
CPT/HCPCS: 36415; 73630; 80053; 85025; 85651; A9270; J2405; J7030

== ENCOUNTER 2022-08-26 01:21 | Day surgery (SDC) | payer OTHER ==
[~2022-08-26 01:21] MED LIST changes: +DOXY100 PO; +ONDA4ODT MM
== END 2022-08-26 22:41 | disposition home or self-care (01) ==
LOC: WOUND 01:21
DX: L89.894 Pressure ulcer of other site, stage 4 (principal); T81.89XD Other complications of procedures, not elsewhere classified, subsequent encounter; L97.812 Non-pressure chronic ulcer of other part of right lower leg with fat layer exposed; I10 Essential (primary) hypertension; G62.9 Polyneuropathy, unspecified; Z89.421 Acquired absence of other right toe(s)
CPT/HCPCS: G0463

== ENCOUNTER 2022-09-02 02:00 | Day surgery (SDC) | payer OTHER | END 2022-09-02 23:04 | disposition home or self-care (01) | LOC: WOUND 02:00 | DX: L89.894 Pressure ulcer of other site, stage 4 (principal); Z89.421 Acquired absence of other right toe(s); T81.89XD Other complications of procedures, not elsewhere classified, subsequent encounter; L97.812 Non-pressure chronic ulcer of other part of right lower leg with fat layer exposed | CPT/HCPCS: G0463 ==

== ENCOUNTER 2022-09-20 03:20 | Day surgery (SDC) | payer OTHER | END 2022-09-20 22:52 | disposition home or self-care (01) | LOC: WOUND 03:20 | DX: L89.894 Pressure ulcer of other site, stage 4 (principal); Z89.421 Acquired absence of other right toe(s); T81.89XD Other complications of procedures, not elsewhere classified, subsequent encounter; L97.812 Non-pressure chronic ulcer of other part of right lower leg with fat layer exposed | CPT/HCPCS: A9270; G0463 ==

== ENCOUNTER 2022-09-27 02:40 | Day surgery (SDC) | payer OTHER | END 2022-09-27 23:43 | disposition home or self-care (01) | LOC: WOUND 02:40 | DX: L89.894 Pressure ulcer of other site, stage 4 (principal); T81.89XA Other complications of procedures, not elsewhere classified, initial encounter; L97.812 Non-pressure chronic ulcer of other part of right lower leg with fat layer exposed; Z89.421 Acquired absence of other right toe(s) | CPT/HCPCS: G0463 ==

== ENCOUNTER 2022-10-04 01:46 | Day surgery (SDC) | payer OTHER | END 2022-10-04 22:39 | disposition home or self-care (01) | LOC: WOUND 01:46 | DX: L89.894 Pressure ulcer of other site, stage 4 (principal); Z89.421 Acquired absence of other right toe(s); L97.812 Non-pressure chronic ulcer of other part of right lower leg with fat layer exposed | CPT/HCPCS: A9270; G0463 ==

== ENCOUNTER 2022-10-11 01:53 | Day surgery (SDC) | payer OTHER | END 2022-10-11 22:33 | disposition home or self-care (01) | LOC: WOUND 01:53 | DX: L89.894 Pressure ulcer of other site, stage 4 (principal); T81.89XD Other complications of procedures, not elsewhere classified, subsequent encounter; L97.812 Non-pressure chronic ulcer of other part of right lower leg with fat layer exposed; X58.XXXD Exposure to other specified factors, subsequent encounter; Z89.421 Acquired absence of other right toe(s) | CPT/HCPCS: A9270; G0463 ==

== ENCOUNTER 2022-10-18 01:36 | Day surgery (SDC) | payer OTHER | END 2022-10-19 22:37 | disposition home or self-care (01) | LOC: WOUND 01:36 | DX: L89.894 Pressure ulcer of other site, stage 4 (principal); Z89.421 Acquired absence of other right toe(s); G62.9 Polyneuropathy, unspecified; I10 Essential (primary) hypertension | CPT/HCPCS: A9270; G0463 ==

== ENCOUNTER 2022-10-25 00:16 | Day surgery (SDC) | payer OTHER | END 2022-10-25 22:36 | disposition home or self-care (01) | LOC: WOUND 00:16 | DX: L89.894 Pressure ulcer of other site, stage 4 (principal); L89.893 Pressure ulcer of other site, stage 3; Z89.421 Acquired absence of other right toe(s) | CPT/HCPCS: A9270 ==

== ENCOUNTER 2022-10-30 00:21 | Day surgery (SDC) | payer OTHER | END 2022-10-30 23:24 | disposition home or self-care (01) | LOC: WOUND 00:21 | DX: L89.894 Pressure ulcer of other site, stage 4 (principal); L89.893 Pressure ulcer of other site, stage 3; Z89.421 Acquired absence of other right toe(s) | CPT/HCPCS: A9270; G0463 ==

== ENCOUNTER 2022-11-08 00:56 | Day surgery (SDC) | payer OTHER | END 2022-11-08 22:47 | disposition home or self-care (01) | LOC: WOUND 00:56 | DX: L89.894 Pressure ulcer of other site, stage 4 (principal); L89.893 Pressure ulcer of other site, stage 3; L97.812 Non-pressure chronic ulcer of other part of right lower leg with fat layer exposed; T81.89XD Other complications of procedures, not elsewhere classified, subsequent encounter; Z89.421 Acquired absence of other right toe(s); I10 Essential (primary) hypertension | CPT/HCPCS: A9270; G0463 ==

== ENCOUNTER 2022-11-22 01:55 | Day surgery (SDC) | payer OTHER | END 2022-11-22 23:03 | disposition home or self-care (01) | LOC: WOUND 01:55 | DX: L89.894 Pressure ulcer of other site, stage 4 (principal); L89.893 Pressure ulcer of other site, stage 3; L97.812 Non-pressure chronic ulcer of other part of right lower leg with fat layer exposed; T81.89XD Other complications of procedures, not elsewhere classified, subsequent encounter; Z89.421 Acquired absence of other right toe(s) | CPT/HCPCS: G0463 ==

== ENCOUNTER 2022-11-29 02:28 | Day surgery (SDC) | payer OTHER | END 2022-11-29 22:41 | disposition home or self-care (01) | LOC: WOUND 02:28 | DX: L89.894 Pressure ulcer of other site, stage 4 (principal); Z89.421 Acquired absence of other right toe(s); L97.812 Non-pressure chronic ulcer of other part of right lower leg with fat layer exposed; I10 Essential (primary) hypertension | CPT/HCPCS: A9270; G0463 ==

== ENCOUNTER 2022-12-06 00:59 | Day surgery (SDC) | payer OTHER | END 2022-12-06 22:52 | disposition home or self-care (01) | LOC: WOUND 00:59 | DX: L89.894 Pressure ulcer of other site, stage 4 (principal); L89.893 Pressure ulcer of other site, stage 3; Z89.421 Acquired absence of other right toe(s); T81.89XD Other complications of procedures, not elsewhere classified, subsequent encounter; L97.812 Non-pressure chronic ulcer of other part of right lower leg with fat layer exposed | CPT/HCPCS: G0463 ==

== ENCOUNTER 2022-12-20 00:19 | Day surgery (SDC) | payer OTHER | END 2022-12-20 22:57 | disposition home or self-care (01) | LOC: WOUND 00:19 | DX: L89.894 Pressure ulcer of other site, stage 4 (principal); L89.893 Pressure ulcer of other site, stage 3; T81.89XA Other complications of procedures, not elsewhere classified, initial encounter; L97.812 Non-pressure chronic ulcer of other part of right lower leg with fat layer exposed; X58.XXXA Exposure to other specified factors, initial encounter; Z89.421 Acquired absence of other right toe(s) | CPT/HCPCS: G0463 ==

== ENCOUNTER 2022-12-27 00:30 | Day surgery (SDC) | payer OTHER | END 2022-12-27 22:53 | disposition home or self-care (01) | LOC: WOUND 00:30 | DX: L89.894 Pressure ulcer of other site, stage 4 (principal); L89.893 Pressure ulcer of other site, stage 3; L97.812 Non-pressure chronic ulcer of other part of right lower leg with fat layer exposed; T81.89XD Other complications of procedures, not elsewhere classified, subsequent encounter; Z89.421 Acquired absence of other right toe(s); I10 Essential (primary) hypertension | CPT/HCPCS: A9270; G0463 ==

== ENCOUNTER 2023-01-03 03:41 | Day surgery (SDC) | payer OTHER | END 2023-01-03 22:37 | disposition home or self-care (01) | LOC: WOUND 03:41 | DX: L89.894 Pressure ulcer of other site, stage 4 (principal); L89.893 Pressure ulcer of other site, stage 3; T81.89XD Other complications of procedures, not elsewhere classified, subsequent encounter; L97.812 Non-pressure chronic ulcer of other part of right lower leg with fat layer exposed; Z89.421 Acquired absence of other right toe(s); I10 Essential (primary) hypertension | CPT/HCPCS: G0463 ==

== ENCOUNTER 2023-01-10 02:05 | Day surgery (SDC) | payer OTHER ==
[~2023-01-10 02:05] MED LIST changes: +METO25ER PO; -METO50 PO
== END 2023-01-10 22:55 | disposition home or self-care (01) ==
LOC: WOUND 02:05
DX: L89.894 Pressure ulcer of other site, stage 4 (principal); L89.893 Pressure ulcer of other site, stage 3; L97.812 Non-pressure chronic ulcer of other part of right lower leg with fat layer exposed; T81.89XD Other complications of procedures, not elsewhere classified, subsequent encounter; Y83.8 Other surgical procedures as the cause of abnormal reaction of the patient, or of later complication, without mention of misadventure at the time of the procedure; Z89.421 Acquired absence of other right toe(s)
CPT/HCPCS: G0463

== ENCOUNTER 2023-01-14 03:31 | Observation (INO) | payer OTHER ==
[~2023-01-14] VITALS: Ht 193 cm; Wt 128.0 kg
[2023-01-14] MEDS ORDERED: BUME1 PO (03:46)
[2023-01-14 03:48] LABS: BASOPHILS ABSOLUTE AUTO 0.04 K/mm3 (0.00-0.23); BASOPHILS PERCENT AUTO 1 % (0-2); EOSINOPHILS ABSOLUTE AUTO 0.03 K/mm3 (0.00-0.68); EOSINOPHILS PERCENT AUTO 0 % (0-6); Hematocrit 34.2 % (37.0-53.0); IMMATURE GRAN ABSOLUTE AUTO 0.02 K/mm3 (0.00-0.10); IMMATURE GRAN PERCENT AUTO 0 % (0-1); LYMPHOCYTES ABSOLUTE AUTO 1.34 K/mm3 (0.84-5.20); LYMPHOCYTES PERCENT AUTO 19 % (21-46); MONOCYTES ABSOLUTE AUTO 0.89 K/mm3 (0.16-1.47); MONOCYTES PERCENT AUTO 13 % (4-13); Mean Corpuscular HGB 26.1 pg (26.0-34.0); Mean Corpuscular HGB Conc 32.2 g/dL (31.5-36.5); Mean Corpuscular Volume 81 fL (80-100); Mean Platelet Volume 10.1 fL (9.1-12.4); NEUTROPHILS ABSOLUTE AUTO 4.63 K/mm3 (1.96-9.15); NEUTROPHILS PERCENT AUTO 67 % (41-73); Platelet Count 216 K/mm3 (150-400); RDW Coefficient Variation 14.5 % (11.7-14.2); RDW Standard Deviation 42.5 fL (35.1-46.3); Red Blood Cell Count 4.21 M/mm3 (4.30-5.90); White Blood Cell Count 6.95 K/mm3 (4.00-11.30)
[2023-01-14 04:00] LABS: Source, Urine Voided
[2023-01-14 04:07] LABS: Albumin, Blood 3.5 g/dL (3.4-5.0); Albumin/Globulin Ratio 0.7 (0.8-1.8); Bilirubin, Total 0.7 mg/dL (0.1-1.0); Bun/Creatinine Ratio 16.4 (12.0-20.0); Calcium, Blood 8.7 mg/dL (8.5-10.1); Creatinine, Blood 1.34 mg/dL (0.60-1.20); Magnesium, Blood 1.2 mg/dL (1.6-2.4); Potassium, Blood 3.5 mmol/L (3.5-5.5); Total Protein, Blood 8.5 g/dL (6.4-8.2)
[2023-01-14 04:11] LABS: Bilirubin, Urine Neg (Neg); Blood, Urine 1+ (Neg); Glucose Qualitative, Urine Neg (Neg); Ketones, Urine Neg (Neg); Leukocyte Esterase, Urine Neg (Neg); Nitrite, Urine Neg (Neg); Protein, Urine 3+ (Neg); Urobilinogen, Urine NORM (Normal)
[2023-01-14 04:34] LABS: Appearance, Urine Clear (Clear); Color, Urine Yellow (P-Yellow)
[2023-01-14 04:36] LABS: Bacteria Few /hpf; Granular Casts 0-2 /lpf (0); Hyaline Casts 0-2 /lpf (0-2); Red Blood Cells, Urine 0-2 /hpf (0-2); Squamous Epithelial Cells Few /hpf (Few); White Blood Cells, Urine 0-2 /hpf (0-5)
[2023-01-14 08:33] VITALS: BP 93/65
[2023-01-14 11:36] VITALS: BP 108/77
[2023-01-14 13:53] LABS: CHOL/HDL RATIO 5.6; Cholesterol 124 mg/dL (50-200); HDL Cholesterol 22 mg/dL (>39); LDL/HDL RATIO 3.1; Low Density Lipoprotein Chol 68 mg/dL (0-110); Magnesium, Blood 1.5 mg/dL (1.6-2.4); Phosphorus, Blood 1.9 mg/dL (2.5-4.9); Triglycerides 170 mg/dL (30-160); Very Low Density Lipoprot Chol 34 mg/dL (6-32)
--- NOTE | 2023-01-14 16:51 | NUR ---
NEW ER ADMIT Patient admitted for syncope. Patient reported earlier this am he has tachycardia & hypotension. Patients continues to have soft BPs, HR sinus tach @ 100s. Denies cardiac sx. Patient has wounds on bilat feet. Right foot large open wound, 100% granulation tissue, serosainguinous drainage. Smaller wound on the side of left foot, purulent drainage noted, applied new dressings CDI. MD at bedside & observed wounds. Pt worked with OT, therapy recommending pt use FWW, and not cane. Stated gait unsteady with cane, patient verbalized understanding. No other concerns, will continue plan of care.
[2023-01-14 17:23] VITALS: BP 123/80
[2023-01-14 19:20] VITALS: BP 104/67
[2023-01-15 03:41] VITALS: BP 108/66
--- NOTE | 2023-01-15 03:45 | NUR ---
SHIFT UNREMARKABLE. EARLY IN SHIFT PT REPORTED THAT PRESCRIBED OXYCODONE REGIMEN WAS INSUFFICIENT TO MANAGE HIP PAIN HE EXPERIENCES. CALLED HOSPITALIST AND RECIEVED ORDER FOR INCREASED DOSAGE AND ONE TIME DOSE OF TORADOL TO MANAGE BREAKTHROUGH PAIN. ADMINISTERED TORADOL AND PT HAS BEEN SLEEPING THROUGH SHIFT SINCE. HAS NOT COMPLAINED OF PAIN SINCE THE MEDICATION ADMINISTRATION. ABLE TO TRANSFER INDEPENDENTLY WITH FWW. AOX4, PLEASANT, COOPERATIVE WITH CARE. CALLS APPROPRIATELY. BED LOCKED IN LOWEST POSITION. CALL LIGHT LEFT WITHIN REACH.
[2023-01-15 05:26] LABS: BASOPHILS ABSOLUTE AUTO 0.03 K/mm3 (0.00-0.23); BASOPHILS PERCENT AUTO 1 % (0-2); EOSINOPHILS ABSOLUTE AUTO 0.06 K/mm3 (0.00-0.68); EOSINOPHILS PERCENT AUTO 1 % (0-6); Hematocrit 31.5 % (37.0-53.0); Hemoglobin 9.9 g/dL (13.5-17.5); IMMATURE GRAN ABSOLUTE AUTO 0.01 K/mm3 (0.00-0.10); IMMATURE GRAN PERCENT AUTO 0 % (0-1); LYMPHOCYTES ABSOLUTE AUTO 0.87 K/mm3 (0.84-5.20); LYMPHOCYTES PERCENT AUTO 18 % (21-46); MONOCYTES ABSOLUTE AUTO 0.68 K/mm3 (0.16-1.47); MONOCYTES PERCENT AUTO 14 % (4-13); Mean Corpuscular HGB 25.8 pg (26.0-34.0); Mean Corpuscular HGB Conc 31.4 g/dL (31.5-36.5); Mean Corpuscular Volume 82 fL (80-100); Mean Platelet Volume 10.6 fL (9.1-12.4); NEUTROPHILS ABSOLUTE AUTO 3.15 K/mm3 (1.96-9.15); NEUTROPHILS PERCENT AUTO 66 % (41-73); Platelet Count 168 K/mm3 (150-400); RDW Coefficient Variation 14.6 % (11.7-14.2); Red Blood Cell Count 3.83 M/mm3 (4.30-5.90)
[2023-01-15 05:50] LABS: Albumin, Blood 3.1 g/dL (3.4-5.0); Albumin/Globulin Ratio 0.7 (0.8-1.8); Bilirubin, Total 0.8 mg/dL (0.1-1.0); Bun/Creatinine Ratio 17.1 (12.0-20.0); Calcium, Blood 8.9 mg/dL (8.5-10.1); Creatinine, Blood 1.23 mg/dL (0.60-1.20); Globulin, Blood 4.6 g/dL (2.2-4.0); Magnesium, Blood 1.7 mg/dL (1.6-2.4); Total Protein, Blood 7.7 g/dL (6.4-8.2)
[2023-01-15 07:55] VITALS: BP 109/72
[2023-01-15] MEDS ORDERED: BACITO TOP (11:11)
--- NOTE | 2023-01-15 14:39 | NUR ---
DISCHARGE MR SERVIN WAS DISCHARGED HOME WITH HIS AT 1440HRS VIA W/C FROM [facility] TO VEHICLE. PT AND VERBALISED UNDERSTANDING OF D/C INSTRUCTIONS. PIV REMOVED BY CHINESE TEACHER. TELE REMOVED. ZIOPATCH PLACED BY [facility] STAFF. PT DID NOT WANT THE DRESSINGS ON HIS FEET CHANGED THIS AM, HIS SAID THAT SHE CHANGES THEM THIS EVENING AND HE FOLLOWS UP WITH [facility]. PT AMBULATED TO BATHROOM AND AROUND THE ROOM WITH WALKER AND THEN WITH HIS CANE. HE DENIED ANY DIZZYNESS TODAY. HE HAS CHRONIC HIP PAIN CONTROLLED ON OXY.
== END 2023-01-15 14:40 | disposition home or self-care (01) ==
LOC: ER 03:31 → MEDS 05:54 → ERHOLD 05:54 → MEDS 08:31
PROVIDERS: Internal Medicine; Student in an Organized Health Care Education/Training Program; ADMIT Student in an Organized Health Care Education/Training Program
DX: R55 Syncope and collapse (principal); R07.89 Other chest pain; I95.9 Hypotension, unspecified; I47.1 Supraventricular tachycardia; E83.42 Hypomagnesemia; E83.39 Other disorders of phosphorus metabolism; S91.302A Unspecified open wound, left foot, initial encounter; L08.9 Local infection of the skin and subcutaneous tissue, unspecified; X58.XXXA Exposure to other specified factors, initial encounter; G62.9 Polyneuropathy, unspecified; I12.9 Hypertensive chronic kidney disease with stage 1 through stage 4 chronic kidney disease, or unspecified chronic kidney disease; N18.2 Chronic kidney disease, stage 2 (mild); Z87.891 Personal history of nicotine dependence; Z88.8 Allergy status to other drugs, medicaments and biological substances; Z79.82 Long term (current) use of aspirin; Z79.899 Other long term (current) drug therapy
CPT/HCPCS: 36415; 71045; 80053; 80061; 81001; 83036; 83735; 83880; 84100; 84443; 84484; 85025; 93005; 93010; 93246; 96361; 96365; 96372; 96375; 97110; 97162; 97165; 97530; 97535; 99285-25; A9270; G0378; J1650; J1885; J3475; J7030

== ENCOUNTER 2023-01-17 00:44 | Day surgery (SDC) | payer OTHER ==
[~2023-01-17 00:44] MED LIST changes: +BACITO TOP; +BUME1 PO
== END 2023-01-18 22:39 | disposition home or self-care (01) ==
LOC: WOUND 00:44
DX: L89.894 Pressure ulcer of other site, stage 4 (principal); Z89.421 Acquired absence of other right toe(s); T81.89XD Other complications of procedures, not elsewhere classified, subsequent encounter; L97.812 Non-pressure chronic ulcer of other part of right lower leg with fat layer exposed
CPT/HCPCS: G0463

== ENCOUNTER 2023-01-24 02:53 | Day surgery (SDC) | payer OTHER | END 2023-01-26 22:35 | disposition home or self-care (01) | LOC: WOUND 02:53 | DX: L89.894 Pressure ulcer of other site, stage 4 (principal); L89.893 Pressure ulcer of other site, stage 3; L97.812 Non-pressure chronic ulcer of other part of right lower leg with fat layer exposed; T81.89XD Other complications of procedures, not elsewhere classified, subsequent encounter; Y83.8 Other surgical procedures as the cause of abnormal reaction of the patient, or of later complication, without mention of misadventure at the time of the procedure; Z89.421 Acquired absence of other right toe(s); I10 Essential (primary) hypertension | CPT/HCPCS: A9270; G0463 ==

== ENCOUNTER 2023-01-31 02:28 | Day surgery (SDC) | payer OTHER | END 2023-02-02 22:49 | disposition home or self-care (01) | LOC: WOUND 02:28 | DX: L89.894 Pressure ulcer of other site, stage 4 (principal); L89.893 Pressure ulcer of other site, stage 3; L97.812 Non-pressure chronic ulcer of other part of right lower leg with fat layer exposed; T81.89XD Other complications of procedures, not elsewhere classified, subsequent encounter; Z89.421 Acquired absence of other right toe(s) ==

== ENCOUNTER → 2023-02-14 | Day surgery (SDC) | payer OTHER | LOC: WOUND 03:14 | DX: L89.624 Pressure ulcer of left heel, stage 4 (principal); L89.614 Pressure ulcer of right heel, stage 4; L97.812 Non-pressure chronic ulcer of other part of right lower leg with fat layer exposed; Z89.421 Acquired absence of other right toe(s); T81.89XD Other complications of procedures, not elsewhere classified, subsequent encounter | CPT/HCPCS: A9270; G0463 ==

== ENCOUNTER 2023-02-18 11:00 | Day surgery (SDC) | payer OTHER ==
[~2023-02-18] VITALS: Ht 193 cm; Wt 128.0 kg
[2023-02-18] MEDS ORDERED: CIPR100 (11:59)
[2023-02-18] MEDS ORDERED: Percocet 10-321 EACH (11:59)
[2023-02-18] MEDS ORDERED: OXYC5 (11:59)
[2023-02-18] MEDS ORDERED: TAMS.4ER (12:00)
[2023-02-18 14:27] VITALS: BP 117/78
--- NOTE | 2023-02-18 14:30 | NUR ---
02/18/23 1430 Lian Davis IV DC'D, CATH INTACT. PRESSURE DRESSING APPLIED. PT TOLERATED WELL
== END 2023-02-18 14:30 | disposition home or self-care (01) ==
LOC: ORSCSDS 11:00
PROVIDERS: Internal Medicine Gastroenterology
PROC: 0DBN8ZX Excision of Sigmoid Colon, Via Natural or Artificial Opening Endoscopic, Diagnostic (ICD-10-PCS; principal; 2023-02-18 12:45)
DX: K62.5 Hemorrhage of anus and rectum (principal); K59.09 Other constipation; Z80.0 Family history of malignant neoplasm of digestive organs; K64.8 Other hemorrhoids; K57.30 Diverticulosis of large intestine without perforation or abscess without bleeding; I10 Essential (primary) hypertension; K21.9 Gastro-esophageal reflux disease without esophagitis; R56.9 Unspecified convulsions; Z87.891 Personal history of nicotine dependence; E66.9 Obesity, unspecified; Z68.34 Body mass index [BMI] 34.0-34.9, adult; Z79.82 Long term (current) use of aspirin; Z79.899 Other long term (current) drug therapy
CPT/HCPCS: 88305; J2704; J7120

== ENCOUNTER 2023-03-14 01:40 | Day surgery (SDC) | payer OTHER ==
[~2023-03-14 01:40] MED LIST changes: +CIPR100; +OXYC5; +Percocet 10-321 EACH; +TAMS.4ER
== END 2023-03-14 22:36 | disposition home or self-care (01) ==
LOC: WOUND 01:40
DX: L89.624 Pressure ulcer of left heel, stage 4 (principal); L89.614 Pressure ulcer of right heel, stage 4; L97.812 Non-pressure chronic ulcer of other part of right lower leg with fat layer exposed; Z89.421 Acquired absence of other right toe(s); T81.89XD Other complications of procedures, not elsewhere classified, subsequent encounter
CPT/HCPCS: A9270; G0463

== ENCOUNTER 2023-04-04 03:17 | Day surgery (SDC) | payer OTHER | END 2023-04-04 22:41 | disposition home or self-care (01) | LOC: WOUND 03:17 | DX: L89.624 Pressure ulcer of left heel, stage 4 (principal); L89.614 Pressure ulcer of right heel, stage 4; Z89.421 Acquired absence of other right toe(s); T81.89XD Other complications of procedures, not elsewhere classified, subsequent encounter; M86.172 Other acute osteomyelitis, left ankle and foot | CPT/HCPCS: A9270; G0463 ==

== ENCOUNTER 2023-04-11 01:34 | Day surgery (SDC) | payer OTHER | END 2023-04-11 22:52 | disposition home or self-care (01) | LOC: WOUND 01:34 | DX: L89.894 Pressure ulcer of other site, stage 4 (principal); L97.812 Non-pressure chronic ulcer of other part of right lower leg with fat layer exposed; Z89.421 Acquired absence of other right toe(s); T81.89XD Other complications of procedures, not elsewhere classified, subsequent encounter; M86.172 Other acute osteomyelitis, left ankle and foot; G62.9 Polyneuropathy, unspecified; I10 Essential (primary) hypertension | CPT/HCPCS: A9270; G0463 ==

== ENCOUNTER 2023-04-18 00:55 | Day surgery (SDC) | payer OTHER | END 2023-04-18 22:36 | disposition home or self-care (01) | LOC: WOUND 00:55 | DX: L89.894 Pressure ulcer of other site, stage 4 (principal); M86.672 Other chronic osteomyelitis, left ankle and foot; L97.812 Non-pressure chronic ulcer of other part of right lower leg with fat layer exposed; Z89.421 Acquired absence of other right toe(s); T81.89XD Other complications of procedures, not elsewhere classified, subsequent encounter; M86.172 Other acute osteomyelitis, left ankle and foot | CPT/HCPCS: A9270 ==

== ENCOUNTER 2023-04-25 02:24 | Day surgery (SDC) | payer OTHER | END 2023-04-25 22:49 | disposition home or self-care (01) | LOC: WOUND 02:24 | DX: M86.172 Other acute osteomyelitis, left ankle and foot (principal); L89.894 Pressure ulcer of other site, stage 4; L89.893 Pressure ulcer of other site, stage 3; L97.812 Non-pressure chronic ulcer of other part of right lower leg with fat layer exposed; T81.89XD Other complications of procedures, not elsewhere classified, subsequent encounter; Z89.421 Acquired absence of other right toe(s) | CPT/HCPCS: G0463 ==

== ENCOUNTER 2023-05-09 01:00 | Day surgery (SDC) | payer OTHER | END 2023-05-09 22:35 | disposition home or self-care (01) | LOC: WOUND 01:00 | DX: L89.894 Pressure ulcer of other site, stage 4 (principal); M86.672 Other chronic osteomyelitis, left ankle and foot; L97.812 Non-pressure chronic ulcer of other part of right lower leg with fat layer exposed; G62.9 Polyneuropathy, unspecified; Z89.421 Acquired absence of other right toe(s); T81.89XD Other complications of procedures, not elsewhere classified, subsequent encounter | CPT/HCPCS: A9270 ==

== ENCOUNTER 2023-05-16 00:46 | Day surgery (SDC) | payer OTHER | END 2023-05-16 22:44 | disposition home or self-care (01) | LOC: WOUND 00:46 | DX: L89.894 Pressure ulcer of other site, stage 4 (principal); G62.9 Polyneuropathy, unspecified; I10 Essential (primary) hypertension; M86.672 Other chronic osteomyelitis, left ankle and foot; Z89.421 Acquired absence of other right toe(s) | CPT/HCPCS: A9270 ==

== ENCOUNTER 2023-05-19 00:52 | Day surgery (SDC) | payer OTHER | END 2023-05-19 22:45 | disposition home or self-care (01) | LOC: HBO 00:52 | DX: M86.672 Other chronic osteomyelitis, left ankle and foot (principal); G62.9 Polyneuropathy, unspecified; L89.894 Pressure ulcer of other site, stage 4; L97.812 Non-pressure chronic ulcer of other part of right lower leg with fat layer exposed; Z89.421 Acquired absence of other right toe(s); T81.89XD Other complications of procedures, not elsewhere classified, subsequent encounter | CPT/HCPCS: G0277 ==

== ENCOUNTER 2023-05-22 02:23 | Day surgery (SDC) | payer OTHER | END 2023-05-22 22:47 | disposition home or self-care (01) | LOC: HBO 02:23 | DX: M86.672 Other chronic osteomyelitis, left ankle and foot (principal); L89.894 Pressure ulcer of other site, stage 4; L89.893 Pressure ulcer of other site, stage 3; L97.812 Non-pressure chronic ulcer of other part of right lower leg with fat layer exposed; T81.89XD Other complications of procedures, not elsewhere classified, subsequent encounter; G62.9 Polyneuropathy, unspecified; Z89.421 Acquired absence of other right toe(s) | CPT/HCPCS: G0277 ==

== ENCOUNTER 2023-05-23 00:37 | Day surgery (SDC) | payer OTHER | END 2023-05-23 23:06 | disposition home or self-care (01) | LOC: HBO 00:37 | DX: M86.672 Other chronic osteomyelitis, left ankle and foot (principal); G62.9 Polyneuropathy, unspecified; L89.894 Pressure ulcer of other site, stage 4; L89.893 Pressure ulcer of other site, stage 3; L97.812 Non-pressure chronic ulcer of other part of right lower leg with fat layer exposed; Z89.421 Acquired absence of other right toe(s); T81.89XD Other complications of procedures, not elsewhere classified, subsequent encounter; I10 Essential (primary) hypertension | CPT/HCPCS: A9270; G0277; G0463 ==

== ENCOUNTER 2023-05-26 01:47 | Day surgery (SDC) | payer OTHER | END 2023-05-26 22:53 | disposition home or self-care (01) | LOC: HBO 01:47 | DX: M86.672 Other chronic osteomyelitis, left ankle and foot (principal); G62.9 Polyneuropathy, unspecified; L89.894 Pressure ulcer of other site, stage 4; L89.893 Pressure ulcer of other site, stage 3; L97.812 Non-pressure chronic ulcer of other part of right lower leg with fat layer exposed; Z89.421 Acquired absence of other right toe(s); T81.89XD Other complications of procedures, not elsewhere classified, subsequent encounter | CPT/HCPCS: G0277 ==

== ENCOUNTER 2023-05-27 02:27 | Day surgery (SDC) | payer OTHER | END 2023-05-27 22:59 | disposition home or self-care (01) | LOC: HBO 02:27 | DX: M86.672 Other chronic osteomyelitis, left ankle and foot (principal); G62.9 Polyneuropathy, unspecified; L89.894 Pressure ulcer of other site, stage 4; L89.893 Pressure ulcer of other site, stage 3; L97.812 Non-pressure chronic ulcer of other part of right lower leg with fat layer exposed; Z89.421 Acquired absence of other right toe(s); T81.89XD Other complications of procedures, not elsewhere classified, subsequent encounter | CPT/HCPCS: G0277 ==

== ENCOUNTER 2023-05-30 03:10 | Day surgery (SDC) | payer OTHER | END 2023-05-30 22:35 | disposition home or self-care (01) | LOC: HBO 03:10 | DX: M86.672 Other chronic osteomyelitis, left ankle and foot (principal); G62.9 Polyneuropathy, unspecified; L89.894 Pressure ulcer of other site, stage 4; L89.893 Pressure ulcer of other site, stage 3; L97.812 Non-pressure chronic ulcer of other part of right lower leg with fat layer exposed; Z89.421 Acquired absence of other right toe(s); T81.89XD Other complications of procedures, not elsewhere classified, subsequent encounter | CPT/HCPCS: G0277 ==

== ENCOUNTER 2023-06-04 01:43 | Day surgery (SDC) | payer OTHER | END 2023-06-04 22:47 | disposition home or self-care (01) | LOC: HBO | DX: L89.894 Pressure ulcer of other site, stage 4 (principal); G62.9 Polyneuropathy, unspecified; M86.672 Other chronic osteomyelitis, left ankle and foot; Z89.421 Acquired absence of other right toe(s); T81.89XD Other complications of procedures, not elsewhere classified, subsequent encounter | CPT/HCPCS: G0277 ==

== ENCOUNTER 2023-06-05 03:09 | Day surgery (SDC) | payer OTHER | END 2023-06-05 23:01 | disposition home or self-care (01) | LOC: WOUND | DX: M86.672 Other chronic osteomyelitis, left ankle and foot (principal); G62.9 Polyneuropathy, unspecified; L89.894 Pressure ulcer of other site, stage 4; L89.893 Pressure ulcer of other site, stage 3; L97.812 Non-pressure chronic ulcer of other part of right lower leg with fat layer exposed; Z89.421 Acquired absence of other right toe(s); T81.89XD Other complications of procedures, not elsewhere classified, subsequent encounter | CPT/HCPCS: G0463 ==

== ENCOUNTER 2023-06-11 02:00 | Day surgery (SDC) | payer OTHER | END 2023-06-11 23:24 | disposition home or self-care (01) | LOC: HBO 02:00 | DX: M86.672 Other chronic osteomyelitis, left ankle and foot (principal); L89.894 Pressure ulcer of other site, stage 4; L89.893 Pressure ulcer of other site, stage 3; L97.812 Non-pressure chronic ulcer of other part of right lower leg with fat layer exposed; T81.89XD Other complications of procedures, not elsewhere classified, subsequent encounter; G62.9 Polyneuropathy, unspecified; Z89.421 Acquired absence of other right toe(s) | CPT/HCPCS: G0277 ==

== ENCOUNTER 2023-06-12 08:00 | Day surgery (SDC) | payer OTHER | END 2023-06-12 23:59 | disposition home or self-care (01) | LOC: HBO 08:00 | DX: M86.672 Other chronic osteomyelitis, left ankle and foot (principal); G62.9 Polyneuropathy, unspecified; L89.894 Pressure ulcer of other site, stage 4; L89.893 Pressure ulcer of other site, stage 3; L97.812 Non-pressure chronic ulcer of other part of right lower leg with fat layer exposed; T81.89XD Other complications of procedures, not elsewhere classified, subsequent encounter; Z89.421 Acquired absence of other right toe(s) | CPT/HCPCS: G0277 ==

== ENCOUNTER 2023-06-13 00:28 | Day surgery (SDC) | payer OTHER | END 2023-06-13 22:43 | disposition home or self-care (01) | LOC: HBO 00:28 | DX: M86.672 Other chronic osteomyelitis, left ankle and foot (principal); G62.9 Polyneuropathy, unspecified; L89.894 Pressure ulcer of other site, stage 4; L89.893 Pressure ulcer of other site, stage 3; L97.812 Non-pressure chronic ulcer of other part of right lower leg with fat layer exposed; T81.89XD Other complications of procedures, not elsewhere classified, subsequent encounter; Z89.421 Acquired absence of other right toe(s) | CPT/HCPCS: A9270; G0277; G0463 ==

== ENCOUNTER 2023-06-13 00:37 | Day surgery (SDC) | payer OTHER | END 2023-06-13 22:43 | disposition home or self-care (01) | LOC: WOUND 00:37 | DX: L89.624 Pressure ulcer of left heel, stage 4 (principal); L89.614 Pressure ulcer of right heel, stage 4; M86.672 Other chronic osteomyelitis, left ankle and foot; G62.9 Polyneuropathy, unspecified; L97.812 Non-pressure chronic ulcer of other part of right lower leg with fat layer exposed; Z89.421 Acquired absence of other right toe(s); T81.89XD Other complications of procedures, not elsewhere classified, subsequent encounter | CPT/HCPCS: A9270; G0463 ==

== ENCOUNTER 2023-06-16 01:10 | Day surgery (SDC) | payer OTHER | END 2023-06-16 23:07 | disposition home or self-care (01) | LOC: HBO 01:10 | DX: M86.672 Other chronic osteomyelitis, left ankle and foot (principal); G62.9 Polyneuropathy, unspecified; L89.894 Pressure ulcer of other site, stage 4; L89.893 Pressure ulcer of other site, stage 3; L97.812 Non-pressure chronic ulcer of other part of right lower leg with fat layer exposed; T81.89XD Other complications of procedures, not elsewhere classified, subsequent encounter; Z89.421 Acquired absence of other right toe(s) | CPT/HCPCS: G0277 ==

== ENCOUNTER 2023-06-17 02:24 | Day surgery (SDC) | payer OTHER | END 2023-06-17 22:45 | disposition home or self-care (01) | LOC: HBO 02:24 | DX: M86.672 Other chronic osteomyelitis, left ankle and foot (principal); G62.9 Polyneuropathy, unspecified; L89.894 Pressure ulcer of other site, stage 4; L89.893 Pressure ulcer of other site, stage 3; L97.812 Non-pressure chronic ulcer of other part of right lower leg with fat layer exposed; T81.89XD Other complications of procedures, not elsewhere classified, subsequent encounter; Z89.421 Acquired absence of other right toe(s); X58.XXXD Exposure to other specified factors, subsequent encounter | CPT/HCPCS: G0277 ==

== ENCOUNTER 2023-06-18 02:36 | Day surgery (SDC) | payer OTHER | END 2023-06-18 22:59 | disposition home or self-care (01) | LOC: HBO 02:36 | DX: M86.672 Other chronic osteomyelitis, left ankle and foot (principal); G62.9 Polyneuropathy, unspecified; L89.894 Pressure ulcer of other site, stage 4; L89.893 Pressure ulcer of other site, stage 3; L97.812 Non-pressure chronic ulcer of other part of right lower leg with fat layer exposed; T81.89XD Other complications of procedures, not elsewhere classified, subsequent encounter; Z89.421 Acquired absence of other right toe(s); R97.20 Elevated prostate specific antigen [PSA]; K76.0 Fatty (change of) liver, not elsewhere classified; K42.9 Umbilical hernia without obstruction or gangrene; M16.12 Unilateral primary osteoarthritis, left hip; D35.02 Benign neoplasm of left adrenal gland; M47.814 Spondylosis without myelopathy or radiculopathy, thoracic region; M47.816 Spondylosis without myelopathy or radiculopathy, lumbar region; M87.852 Other osteonecrosis, left femur; K40.90 Unilateral inguinal hernia, without obstruction or gangrene, not specified as recurrent; N28.1 Cyst of kidney, acquired; R16.2 Hepatomegaly with splenomegaly, not elsewhere classified; R59.0 Localized enlarged lymph nodes | CPT/HCPCS: 74177; G0277; Q9967 ==

== ENCOUNTER 2023-06-19 01:44 | Day surgery (SDC) | payer OTHER | END 2023-06-19 23:28 | disposition home or self-care (01) | LOC: HBO 01:44 | DX: M86.672 Other chronic osteomyelitis, left ankle and foot (principal); L89.894 Pressure ulcer of other site, stage 4; L89.893 Pressure ulcer of other site, stage 3; L97.812 Non-pressure chronic ulcer of other part of right lower leg with fat layer exposed; T81.89XD Other complications of procedures, not elsewhere classified, subsequent encounter; Y83.9 Surgical procedure, unspecified as the cause of abnormal reaction of the patient, or of later complication, without mention of misadventure at the time of the procedure; G62.9 Polyneuropathy, unspecified; Z89.421 Acquired absence of other right toe(s) | CPT/HCPCS: G0277 ==

== ENCOUNTER 2023-06-20 02:27 | Day surgery (SDC) | payer OTHER | END 2023-06-20 22:40 | disposition home or self-care (01) | LOC: HBO 02:27 | DX: M86.672 Other chronic osteomyelitis, left ankle and foot (principal); G62.9 Polyneuropathy, unspecified; L89.894 Pressure ulcer of other site, stage 4; L89.893 Pressure ulcer of other site, stage 3; T81.89XD Other complications of procedures, not elsewhere classified, subsequent encounter; L97.812 Non-pressure chronic ulcer of other part of right lower leg with fat layer exposed; Z89.421 Acquired absence of other right toe(s) | CPT/HCPCS: A9270; G0277; G0463 ==

== ENCOUNTER 2023-06-20 02:38 | Day surgery (SDC) | payer OTHER | END 2023-06-20 22:40 | disposition home or self-care (01) | LOC: WOUND 02:38 | DX: M86.672 Other chronic osteomyelitis, left ankle and foot (principal); L89.894 Pressure ulcer of other site, stage 4; G62.9 Polyneuropathy, unspecified; L89.893 Pressure ulcer of other site, stage 3; L97.812 Non-pressure chronic ulcer of other part of right lower leg with fat layer exposed; T81.89XD Other complications of procedures, not elsewhere classified, subsequent encounter; Z89.421 Acquired absence of other right toe(s) | CPT/HCPCS: A9270; G0463 ==

== ENCOUNTER 2023-06-23 00:27 | Day surgery (SDC) | payer OTHER | END 2023-06-23 22:48 | disposition home or self-care (01) | LOC: HBO 00:27 | DX: L89.894 Pressure ulcer of other site, stage 4 (principal); M86.672 Other chronic osteomyelitis, left ankle and foot; G62.9 Polyneuropathy, unspecified; L89.893 Pressure ulcer of other site, stage 3; L97.812 Non-pressure chronic ulcer of other part of right lower leg with fat layer exposed; Z89.421 Acquired absence of other right toe(s); T81.89XD Other complications of procedures, not elsewhere classified, subsequent encounter | CPT/HCPCS: G0277 ==

== ENCOUNTER 2023-06-24 01:42 | Day surgery (SDC) | payer OTHER | END 2023-06-24 22:38 | disposition home or self-care (01) | LOC: HBO 01:42 | DX: L89.894 Pressure ulcer of other site, stage 4 (principal); G62.9 Polyneuropathy, unspecified; M86.672 Other chronic osteomyelitis, left ankle and foot; L97.812 Non-pressure chronic ulcer of other part of right lower leg with fat layer exposed; Z89.421 Acquired absence of other right toe(s); T81.89XD Other complications of procedures, not elsewhere classified, subsequent encounter | CPT/HCPCS: G0277 ==

== ENCOUNTER 2023-06-25 05:00 | Day surgery (SDC) | payer OTHER | END 2023-06-25 22:45 | disposition home or self-care (01) | LOC: HBO 05:00 | DX: L89.894 Pressure ulcer of other site, stage 4 (principal); M86.672 Other chronic osteomyelitis, left ankle and foot; G62.9 Polyneuropathy, unspecified; L97.812 Non-pressure chronic ulcer of other part of right lower leg with fat layer exposed; Z89.421 Acquired absence of other right toe(s); T81.89XD Other complications of procedures, not elsewhere classified, subsequent encounter | CPT/HCPCS: G0277 ==

== ENCOUNTER 2023-06-26 03:23 | Day surgery (SDC) | payer OTHER | END 2023-06-26 22:39 | disposition home or self-care (01) | LOC: HBO 03:23 | DX: L89.894 Pressure ulcer of other site, stage 4 (principal); M86.672 Other chronic osteomyelitis, left ankle and foot; G62.9 Polyneuropathy, unspecified; L97.812 Non-pressure chronic ulcer of other part of right lower leg with fat layer exposed; Z89.421 Acquired absence of other right toe(s); T81.89XD Other complications of procedures, not elsewhere classified, subsequent encounter | CPT/HCPCS: G0277 ==

== ENCOUNTER 2023-06-27 05:07 | Day surgery (SDC) | payer OTHER | END 2023-06-27 22:37 | disposition home or self-care (01) | LOC: HBO 05:07 | DX: L89.894 Pressure ulcer of other site, stage 4 (principal); M86.672 Other chronic osteomyelitis, left ankle and foot; G62.9 Polyneuropathy, unspecified; L89.893 Pressure ulcer of other site, stage 3; L97.812 Non-pressure chronic ulcer of other part of right lower leg with fat layer exposed; Z89.421 Acquired absence of other right toe(s); T81.89XD Other complications of procedures, not elsewhere classified, subsequent encounter; L89.624 Pressure ulcer of left heel, stage 4; L89.614 Pressure ulcer of right heel, stage 4; I10 Essential (primary) hypertension | CPT/HCPCS: G0277; G0463 ==

== ENCOUNTER 2023-06-30 01:07 | Day surgery (SDC) | payer OTHER | END 2023-07-01 22:54 | disposition home or self-care (01) | LOC: HBO 01:07 | DX: M86.672 Other chronic osteomyelitis, left ankle and foot (principal); L89.894 Pressure ulcer of other site, stage 4; L89.893 Pressure ulcer of other site, stage 3; L97.812 Non-pressure chronic ulcer of other part of right lower leg with fat layer exposed; T81.89XD Other complications of procedures, not elsewhere classified, subsequent encounter; G62.9 Polyneuropathy, unspecified; Z89.421 Acquired absence of other right toe(s) | CPT/HCPCS: G0277 ==

== ENCOUNTER 2023-07-01 00:24 | Day surgery (SDC) | payer OTHER | END 2023-07-01 22:54 | disposition home or self-care (01) | LOC: HBO 00:24 | DX: L89.894 Pressure ulcer of other site, stage 4 (principal); M86.672 Other chronic osteomyelitis, left ankle and foot; G62.9 Polyneuropathy, unspecified; L97.812 Non-pressure chronic ulcer of other part of right lower leg with fat layer exposed; Z89.421 Acquired absence of other right toe(s); T81.89XD Other complications of procedures, not elsewhere classified, subsequent encounter | CPT/HCPCS: G0277 ==

== ENCOUNTER 2023-07-02 02:30 | Day surgery (SDC) | payer OTHER | END 2023-07-02 22:42 | disposition home or self-care (01) | LOC: HBO 02:30 | DX: L89.894 Pressure ulcer of other site, stage 4 (principal); M86.672 Other chronic osteomyelitis, left ankle and foot; G62.9 Polyneuropathy, unspecified; L97.812 Non-pressure chronic ulcer of other part of right lower leg with fat layer exposed; Z89.421 Acquired absence of other right toe(s); T81.89XD Other complications of procedures, not elsewhere classified, subsequent encounter; L89.893 Pressure ulcer of other site, stage 3 | CPT/HCPCS: G0277 ==

== ENCOUNTER 2023-07-03 03:16 | Day surgery (SDC) | payer OTHER | END 2023-07-03 22:33 | disposition home or self-care (01) | LOC: HBO 03:16 | PROC: 6A151ZZ Decompression, Circulatory, Multiple (ICD-10-PCS; principal; 2023-07-03) | DX: M86.672 Other chronic osteomyelitis, left ankle and foot (principal); G62.9 Polyneuropathy, unspecified; L89.894 Pressure ulcer of other site, stage 4; L89.893 Pressure ulcer of other site, stage 3; L97.812 Non-pressure chronic ulcer of other part of right lower leg with fat layer exposed; T81.89XD Other complications of procedures, not elsewhere classified, subsequent encounter; Z89.421 Acquired absence of other right toe(s) | CPT/HCPCS: G0277 ==

== ENCOUNTER 2023-07-04 03:05 | Day surgery (SDC) | payer OTHER | END 2023-07-04 23:00 | disposition home or self-care (01) | LOC: HBO 03:05 | DX: M86.672 Other chronic osteomyelitis, left ankle and foot (principal); G62.9 Polyneuropathy, unspecified; L89.894 Pressure ulcer of other site, stage 4; L89.893 Pressure ulcer of other site, stage 3; L97.812 Non-pressure chronic ulcer of other part of right lower leg with fat layer exposed; T81.89XD Other complications of procedures, not elsewhere classified, subsequent encounter; Z89.421 Acquired absence of other right toe(s) | CPT/HCPCS: G0277 ==

== ENCOUNTER 2023-07-07 02:14 | Day surgery (SDC) | payer OTHER | END 2023-07-07 22:42 | disposition home or self-care (01) | LOC: HBO 02:14 | DX: M86.672 Other chronic osteomyelitis, left ankle and foot (principal); G62.9 Polyneuropathy, unspecified; L89.894 Pressure ulcer of other site, stage 4; L89.893 Pressure ulcer of other site, stage 3; L97.812 Non-pressure chronic ulcer of other part of right lower leg with fat layer exposed; T81.89XD Other complications of procedures, not elsewhere classified, subsequent encounter; Z89.421 Acquired absence of other right toe(s); Y83.8 Other surgical procedures as the cause of abnormal reaction of the patient, or of later complication, without mention of misadventure at the time of the procedure | CPT/HCPCS: G0277 ==

== ENCOUNTER 2023-07-09 04:57 | Day surgery (SDC) | payer OTHER | END 2023-07-09 23:11 | disposition home or self-care (01) | LOC: HBO 04:57 | DX: M86.672 Other chronic osteomyelitis, left ankle and foot (principal); L89.894 Pressure ulcer of other site, stage 4; L89.893 Pressure ulcer of other site, stage 3; L97.812 Non-pressure chronic ulcer of other part of right lower leg with fat layer exposed; T81.89XD Other complications of procedures, not elsewhere classified, subsequent encounter; G62.9 Polyneuropathy, unspecified; Z89.421 Acquired absence of other right toe(s) | CPT/HCPCS: G0277 ==

== ENCOUNTER 2023-07-10 05:13 | Day surgery (SDC) | payer OTHER | END 2023-07-10 22:36 | disposition home or self-care (01) | LOC: HBO 05:13 | DX: M86.672 Other chronic osteomyelitis, left ankle and foot (principal); G62.9 Polyneuropathy, unspecified; L89.894 Pressure ulcer of other site, stage 4; L89.893 Pressure ulcer of other site, stage 3; L97.812 Non-pressure chronic ulcer of other part of right lower leg with fat layer exposed; Z89.421 Acquired absence of other right toe(s); T81.89XD Other complications of procedures, not elsewhere classified, subsequent encounter | CPT/HCPCS: G0277 ==

== ENCOUNTER 2023-07-11 04:50 | Day surgery (SDC) | payer OTHER | END 2023-07-11 22:48 | disposition home or self-care (01) | LOC: HBO 04:50 | DX: M86.672 Other chronic osteomyelitis, left ankle and foot (principal); G62.9 Polyneuropathy, unspecified; L89.894 Pressure ulcer of other site, stage 4; L89.893 Pressure ulcer of other site, stage 3; L97.812 Non-pressure chronic ulcer of other part of right lower leg with fat layer exposed; Z89.421 Acquired absence of other right toe(s); T81.89XD Other complications of procedures, not elsewhere classified, subsequent encounter; Y83.8 Other surgical procedures as the cause of abnormal reaction of the patient, or of later complication, without mention of misadventure at the time of the procedure; L89.624 Pressure ulcer of left heel, stage 4; L89.614 Pressure ulcer of right heel, stage 4 | CPT/HCPCS: G0277; G0463 ==

== ENCOUNTER 2023-07-11 05:10 | Day surgery (SDC) | payer OTHER | END 2023-07-11 22:48 | disposition home or self-care (01) | LOC: WOUND 05:10 | DX: L89.624 Pressure ulcer of left heel, stage 4 (principal); L89.614 Pressure ulcer of right heel, stage 4; M86.672 Other chronic osteomyelitis, left ankle and foot; G62.9 Polyneuropathy, unspecified; L97.812 Non-pressure chronic ulcer of other part of right lower leg with fat layer exposed; Z89.421 Acquired absence of other right toe(s); T81.89XD Other complications of procedures, not elsewhere classified, subsequent encounter | CPT/HCPCS: G0463 ==

== ENCOUNTER 2023-07-14 02:28 | Day surgery (SDC) | payer OTHER | END 2023-07-14 22:38 | disposition home or self-care (01) | LOC: HBO 02:28 | DX: L89.894 Pressure ulcer of other site, stage 4 (principal); M86.672 Other chronic osteomyelitis, left ankle and foot; G62.9 Polyneuropathy, unspecified; L97.812 Non-pressure chronic ulcer of other part of right lower leg with fat layer exposed; T81.89XD Other complications of procedures, not elsewhere classified, subsequent encounter; Z89.421 Acquired absence of other right toe(s) | CPT/HCPCS: G0277 ==

== ENCOUNTER 2023-07-15 05:54 | Day surgery (SDC) | payer OTHER | END 2023-07-15 22:51 | disposition home or self-care (01) | LOC: HBO 05:54 | DX: M86.672 Other chronic osteomyelitis, left ankle and foot (principal); G62.9 Polyneuropathy, unspecified; L89.894 Pressure ulcer of other site, stage 4; L89.893 Pressure ulcer of other site, stage 3; L97.821 Non-pressure chronic ulcer of other part of left lower leg limited to breakdown of skin; T81.89XD Other complications of procedures, not elsewhere classified, subsequent encounter; Z89.421 Acquired absence of other right toe(s); Y83.8 Other surgical procedures as the cause of abnormal reaction of the patient, or of later complication, without mention of misadventure at the time of the procedure | CPT/HCPCS: G0277 ==

== ENCOUNTER 2023-07-16 01:53 | Day surgery (SDC) | payer OTHER | END 2023-07-16 22:47 | disposition home or self-care (01) | LOC: HBO 01:53 | DX: M86.672 Other chronic osteomyelitis, left ankle and foot (principal); G62.9 Polyneuropathy, unspecified; L89.894 Pressure ulcer of other site, stage 4; L89.893 Pressure ulcer of other site, stage 3; L97.812 Non-pressure chronic ulcer of other part of right lower leg with fat layer exposed; T81.89XD Other complications of procedures, not elsewhere classified, subsequent encounter; Y83.8 Other surgical procedures as the cause of abnormal reaction of the patient, or of later complication, without mention of misadventure at the time of the procedure | CPT/HCPCS: G0277 ==

== ENCOUNTER 2023-07-17 05:05 | Day surgery (SDC) | payer OTHER | END 2023-07-17 22:45 | disposition home or self-care (01) | LOC: HBO 05:05 | DX: M86.672 Other chronic osteomyelitis, left ankle and foot (principal); L89.894 Pressure ulcer of other site, stage 4; L89.893 Pressure ulcer of other site, stage 3; L97.812 Non-pressure chronic ulcer of other part of right lower leg with fat layer exposed; T81.89XD Other complications of procedures, not elsewhere classified, subsequent encounter; Z89.421 Acquired absence of other right toe(s); G92.9 Unspecified toxic encephalopathy | CPT/HCPCS: G0277 ==

== ENCOUNTER 2023-07-18 01:50 | Day surgery (SDC) | payer OTHER | END 2023-07-18 22:44 | disposition home or self-care (01) | LOC: HBO 01:50 | DX: M86.672 Other chronic osteomyelitis, left ankle and foot (principal); G62.9 Polyneuropathy, unspecified; L89.894 Pressure ulcer of other site, stage 4; L89.893 Pressure ulcer of other site, stage 3; L97.812 Non-pressure chronic ulcer of other part of right lower leg with fat layer exposed; T81.89XD Other complications of procedures, not elsewhere classified, subsequent encounter; Z89.421 Acquired absence of other right toe(s); Y83.8 Other surgical procedures as the cause of abnormal reaction of the patient, or of later complication, without mention of misadventure at the time of the procedure | CPT/HCPCS: G0277 ==

== ENCOUNTER 2023-07-18 01:59 | Day surgery (SDC) | payer OTHER | END 2023-07-18 22:44 | disposition home or self-care (01) | LOC: WOUND 01:59 | DX: M86.672 Other chronic osteomyelitis, left ankle and foot (principal); G62.9 Polyneuropathy, unspecified; I10 Essential (primary) hypertension; L89.894 Pressure ulcer of other site, stage 4; L89.893 Pressure ulcer of other site, stage 3; L97.812 Non-pressure chronic ulcer of other part of right lower leg with fat layer exposed; T81.89XD Other complications of procedures, not elsewhere classified, subsequent encounter; Z89.421 Acquired absence of other right toe(s); Y83.8 Other surgical procedures as the cause of abnormal reaction of the patient, or of later complication, without mention of misadventure at the time of the procedure | CPT/HCPCS: G0463 ==

== ENCOUNTER 2023-07-21 00:43 | Day surgery (SDC) | payer OTHER | END 2023-07-21 22:43 | disposition home or self-care (01) | LOC: HBO 00:43 | DX: M86.672 Other chronic osteomyelitis, left ankle and foot (principal); G62.9 Polyneuropathy, unspecified; L89.894 Pressure ulcer of other site, stage 4; L89.893 Pressure ulcer of other site, stage 3; L97.812 Non-pressure chronic ulcer of other part of right lower leg with fat layer exposed; Z89.421 Acquired absence of other right toe(s); T81.89XD Other complications of procedures, not elsewhere classified, subsequent encounter | CPT/HCPCS: G0277 ==

== ENCOUNTER 2023-07-22 02:25 | Day surgery (SDC) | payer OTHER | END 2023-07-22 22:38 | disposition home or self-care (01) | LOC: HBO 02:25 | DX: L89.894 Pressure ulcer of other site, stage 4 (principal); M86.672 Other chronic osteomyelitis, left ankle and foot; G62.9 Polyneuropathy, unspecified; L97.812 Non-pressure chronic ulcer of other part of right lower leg with fat layer exposed; Z89.421 Acquired absence of other right toe(s); T81.89XD Other complications of procedures, not elsewhere classified, subsequent encounter | CPT/HCPCS: G0277 ==

== ENCOUNTER 2023-07-23 06:07 | Day surgery (SDC) | payer OTHER | END 2023-07-23 22:48 | disposition home or self-care (01) | LOC: HBO 06:07 | DX: M86.672 Other chronic osteomyelitis, left ankle and foot (principal); G62.9 Polyneuropathy, unspecified; L89.894 Pressure ulcer of other site, stage 4; L89.893 Pressure ulcer of other site, stage 3; L97.812 Non-pressure chronic ulcer of other part of right lower leg with fat layer exposed; T81.89XD Other complications of procedures, not elsewhere classified, subsequent encounter; Y83.8 Other surgical procedures as the cause of abnormal reaction of the patient, or of later complication, without mention of misadventure at the time of the procedure; Z89.421 Acquired absence of other right toe(s) | CPT/HCPCS: G0277 ==

== ENCOUNTER 2023-07-24 02:22 | Day surgery (SDC) | payer OTHER | END 2023-07-24 22:48 | disposition home or self-care (01) | LOC: HBO 02:22 | DX: M86.672 Other chronic osteomyelitis, left ankle and foot (principal); L97.812 Non-pressure chronic ulcer of other part of right lower leg with fat layer exposed; L89.894 Pressure ulcer of other site, stage 4; L89.893 Pressure ulcer of other site, stage 3; G62.9 Polyneuropathy, unspecified; T81.89XD Other complications of procedures, not elsewhere classified, subsequent encounter; Z89.421 Acquired absence of other right toe(s) | CPT/HCPCS: G0277 ==

== ENCOUNTER 2023-07-25 02:34 | Day surgery (SDC) | payer OTHER | END 2023-07-25 22:34 | disposition home or self-care (01) | LOC: WOUND 02:34 | DX: L89.894 Pressure ulcer of other site, stage 4 (principal); G62.9 Polyneuropathy, unspecified; M86.672 Other chronic osteomyelitis, left ankle and foot; L97.812 Non-pressure chronic ulcer of other part of right lower leg with fat layer exposed; Z89.421 Acquired absence of other right toe(s); T81.89XD Other complications of procedures, not elsewhere classified, subsequent encounter | CPT/HCPCS: G0463 ==

== ENCOUNTER 2023-07-25 02:35 | Day surgery (SDC) | payer OTHER | END 2023-07-25 22:34 | disposition home or self-care (01) | LOC: HBO 02:35 | DX: M86.672 Other chronic osteomyelitis, left ankle and foot (principal); G62.9 Polyneuropathy, unspecified; L89.894 Pressure ulcer of other site, stage 4; L89.893 Pressure ulcer of other site, stage 3; L97.812 Non-pressure chronic ulcer of other part of right lower leg with fat layer exposed; T81.89XD Other complications of procedures, not elsewhere classified, subsequent encounter; Z89.421 Acquired absence of other right toe(s); Y83.8 Other surgical procedures as the cause of abnormal reaction of the patient, or of later complication, without mention of misadventure at the time of the procedure | CPT/HCPCS: G0277; G0463 ==

== ENCOUNTER 2023-07-28 02:48 | Day surgery (SDC) | payer OTHER | END 2023-07-28 22:54 | disposition home or self-care (01) | LOC: HBO 02:48 | DX: M86.672 Other chronic osteomyelitis, left ankle and foot (principal); G62.9 Polyneuropathy, unspecified; L89.894 Pressure ulcer of other site, stage 4; L89.893 Pressure ulcer of other site, stage 3; L97.812 Non-pressure chronic ulcer of other part of right lower leg with fat layer exposed; T81.89XD Other complications of procedures, not elsewhere classified, subsequent encounter; Z89.421 Acquired absence of other right toe(s); Y83.8 Other surgical procedures as the cause of abnormal reaction of the patient, or of later complication, without mention of misadventure at the time of the procedure | CPT/HCPCS: G0277 ==

== ENCOUNTER 2023-07-29 03:00 | Day surgery (SDC) | payer OTHER | END 2023-07-29 22:45 | disposition home or self-care (01) | LOC: HBO 03:00 | DX: L89.894 Pressure ulcer of other site, stage 4 (principal); G62.9 Polyneuropathy, unspecified; M86.672 Other chronic osteomyelitis, left ankle and foot; L97.812 Non-pressure chronic ulcer of other part of right lower leg with fat layer exposed; Z89.421 Acquired absence of other right toe(s); T81.89XD Other complications of procedures, not elsewhere classified, subsequent encounter | CPT/HCPCS: G0277 ==

== ENCOUNTER 2023-07-30 02:23 | Day surgery (SDC) | payer OTHER | END 2023-07-30 22:40 | disposition home or self-care (01) | LOC: HBO 02:23 | DX: M86.672 Other chronic osteomyelitis, left ankle and foot (principal); L89.894 Pressure ulcer of other site, stage 4; L89.893 Pressure ulcer of other site, stage 3; L97.812 Non-pressure chronic ulcer of other part of right lower leg with fat layer exposed; T81.89XD Other complications of procedures, not elsewhere classified, subsequent encounter; Z89.421 Acquired absence of other right toe(s); Y83.8 Other surgical procedures as the cause of abnormal reaction of the patient, or of later complication, without mention of misadventure at the time of the procedure; L89.624 Pressure ulcer of left heel, stage 4; L89.614 Pressure ulcer of right heel, stage 4; I10 Essential (primary) hypertension | CPT/HCPCS: G0277 ==

== ENCOUNTER 2023-07-30 02:33 | Day surgery (SDC) | payer OTHER | END 2023-07-30 22:40 | disposition home or self-care (01) | LOC: WOUND 02:33 | DX: L89.624 Pressure ulcer of left heel, stage 4 (principal); L89.614 Pressure ulcer of right heel, stage 4; I10 Essential (primary) hypertension; M86.672 Other chronic osteomyelitis, left ankle and foot; G62.9 Polyneuropathy, unspecified; L97.812 Non-pressure chronic ulcer of other part of right lower leg with fat layer exposed; Z89.421 Acquired absence of other right toe(s); T81.89XD Other complications of procedures, not elsewhere classified, subsequent encounter ==

== ENCOUNTER 2023-08-04 02:59 | Day surgery (SDC) | payer OTHER | END 2023-08-04 22:53 | disposition home or self-care (01) | LOC: HBO 02:59 | DX: L89.894 Pressure ulcer of other site, stage 4 (principal); M86.672 Other chronic osteomyelitis, left ankle and foot; G62.9 Polyneuropathy, unspecified; L89.893 Pressure ulcer of other site, stage 3; L97.812 Non-pressure chronic ulcer of other part of right lower leg with fat layer exposed; Z89.421 Acquired absence of other right toe(s); T81.89XD Other complications of procedures, not elsewhere classified, subsequent encounter | CPT/HCPCS: G0277 ==

== ENCOUNTER 2023-08-05 01:30 | Day surgery (SDC) | payer OTHER | END 2023-08-05 22:39 | disposition home or self-care (01) | LOC: HBO 01:30 | DX: L89.894 Pressure ulcer of other site, stage 4 (principal); M86.672 Other chronic osteomyelitis, left ankle and foot; G62.9 Polyneuropathy, unspecified; L97.812 Non-pressure chronic ulcer of other part of right lower leg with fat layer exposed; Z89.421 Acquired absence of other right toe(s); T81.89XD Other complications of procedures, not elsewhere classified, subsequent encounter | CPT/HCPCS: G0277 ==

== ENCOUNTER 2023-08-06 01:51 | Day surgery (SDC) | payer OTHER | END 2023-08-06 22:34 | disposition home or self-care (01) | LOC: HBO 01:51 | DX: M86.672 Other chronic osteomyelitis, left ankle and foot (principal); G62.9 Polyneuropathy, unspecified; L89.894 Pressure ulcer of other site, stage 4; L89.893 Pressure ulcer of other site, stage 3; L97.812 Non-pressure chronic ulcer of other part of right lower leg with fat layer exposed; T81.89XD Other complications of procedures, not elsewhere classified, subsequent encounter; Y83.8 Other surgical procedures as the cause of abnormal reaction of the patient, or of later complication, without mention of misadventure at the time of the procedure; Z89.421 Acquired absence of other right toe(s) | CPT/HCPCS: G0277 ==

== ENCOUNTER 2023-08-07 02:26 | Day surgery (SDC) | payer OTHER | END 2023-08-07 22:42 | disposition home or self-care (01) | LOC: HBO 02:26 | DX: M86.672 Other chronic osteomyelitis, left ankle and foot (principal); L89.894 Pressure ulcer of other site, stage 4; L89.893 Pressure ulcer of other site, stage 3; L97.812 Non-pressure chronic ulcer of other part of right lower leg with fat layer exposed; T81.89XD Other complications of procedures, not elsewhere classified, subsequent encounter; Y83.9 Surgical procedure, unspecified as the cause of abnormal reaction of the patient, or of later complication, without mention of misadventure at the time of the procedure; G62.9 Polyneuropathy, unspecified; Z89.421 Acquired absence of other right toe(s) | CPT/HCPCS: G0277 ==

== ENCOUNTER 2023-08-08 03:51 | Day surgery (SDC) | payer OTHER | END 2023-08-08 22:45 | disposition home or self-care (01) | LOC: WOUND 03:51 | DX: L89.894 Pressure ulcer of other site, stage 4 (principal); L89.893 Pressure ulcer of other site, stage 3; M86.672 Other chronic osteomyelitis, left ankle and foot; L97.812 Non-pressure chronic ulcer of other part of right lower leg with fat layer exposed; I10 Essential (primary) hypertension; T81.89XD Other complications of procedures, not elsewhere classified, subsequent encounter; G62.9 Polyneuropathy, unspecified; Z89.421 Acquired absence of other right toe(s); Y83.8 Other surgical procedures as the cause of abnormal reaction of the patient, or of later complication, without mention of misadventure at the time of the procedure | CPT/HCPCS: G0463 ==

== ENCOUNTER 2023-08-08 03:52 | Day surgery (SDC) | payer OTHER | END 2023-08-08 22:48 | disposition home or self-care (01) | LOC: HBO 03:52 | DX: L89.894 Pressure ulcer of other site, stage 4 (principal); M86.672 Other chronic osteomyelitis, left ankle and foot; G62.9 Polyneuropathy, unspecified; L89.893 Pressure ulcer of other site, stage 3; L97.812 Non-pressure chronic ulcer of other part of right lower leg with fat layer exposed; Z89.421 Acquired absence of other right toe(s); T81.89XD Other complications of procedures, not elsewhere classified, subsequent encounter | CPT/HCPCS: G0277 ==

== ENCOUNTER 2023-08-11 04:16 | Day surgery (SDC) | payer OTHER | END 2023-08-11 22:48 | disposition home or self-care (01) | LOC: HBO 04:16 | DX: L89.894 Pressure ulcer of other site, stage 4 (principal); M86.672 Other chronic osteomyelitis, left ankle and foot; G62.9 Polyneuropathy, unspecified; L89.893 Pressure ulcer of other site, stage 3; L97.812 Non-pressure chronic ulcer of other part of right lower leg with fat layer exposed; Z89.421 Acquired absence of other right toe(s); T81.89XD Other complications of procedures, not elsewhere classified, subsequent encounter | CPT/HCPCS: 36415; 73630; 85651; 86140; G0277 ==

== ENCOUNTER 2023-08-12 03:04 | Day surgery (SDC) | payer OTHER | END 2023-08-12 22:55 | disposition home or self-care (01) | LOC: HBO 03:04 | DX: M86.672 Other chronic osteomyelitis, left ankle and foot (principal); G62.9 Polyneuropathy, unspecified; L89.894 Pressure ulcer of other site, stage 4; L89.893 Pressure ulcer of other site, stage 3; L97.812 Non-pressure chronic ulcer of other part of right lower leg with fat layer exposed; Z89.421 Acquired absence of other right toe(s); T81.89XD Other complications of procedures, not elsewhere classified, subsequent encounter | CPT/HCPCS: G0277 ==

== ENCOUNTER 2023-08-13 02:07 | Day surgery (SDC) | payer OTHER | END 2023-08-13 22:41 | disposition home or self-care (01) | LOC: HBO 02:07 | DX: M86.672 Other chronic osteomyelitis, left ankle and foot (principal); L89.894 Pressure ulcer of other site, stage 4; L89.893 Pressure ulcer of other site, stage 3; L97.812 Non-pressure chronic ulcer of other part of right lower leg with fat layer exposed; T81.89XD Other complications of procedures, not elsewhere classified, subsequent encounter; Z89.421 Acquired absence of other right toe(s); Y83.8 Other surgical procedures as the cause of abnormal reaction of the patient, or of later complication, without mention of misadventure at the time of the procedure | CPT/HCPCS: G0277 ==

== ENCOUNTER 2023-08-14 01:11 | Day surgery (SDC) | payer OTHER | END 2023-08-14 22:44 | disposition home or self-care (01) | LOC: HBO 01:11 | DX: M86.672 Other chronic osteomyelitis, left ankle and foot (principal); L89.894 Pressure ulcer of other site, stage 4; L89.893 Pressure ulcer of other site, stage 3; L97.812 Non-pressure chronic ulcer of other part of right lower leg with fat layer exposed; T81.89XD Other complications of procedures, not elsewhere classified, subsequent encounter; G62.9 Polyneuropathy, unspecified; Z89.421 Acquired absence of other right toe(s) | CPT/HCPCS: G0277 ==

== ENCOUNTER 2023-08-15 03:13 | Day surgery (SDC) | payer OTHER | END 2023-08-15 22:59 | disposition home or self-care (01) | LOC: HBO 03:13 | DX: M86.672 Other chronic osteomyelitis, left ankle and foot (principal); G62.9 Polyneuropathy, unspecified; L89.894 Pressure ulcer of other site, stage 4; L89.893 Pressure ulcer of other site, stage 3; L97.812 Non-pressure chronic ulcer of other part of right lower leg with fat layer exposed; T81.89XD Other complications of procedures, not elsewhere classified, subsequent encounter; Z89.421 Acquired absence of other right toe(s); X58.XXXD Exposure to other specified factors, subsequent encounter; L89.624 Pressure ulcer of left heel, stage 4; L89.614 Pressure ulcer of right heel, stage 4; I10 Essential (primary) hypertension; N40.3 Nodular prostate with lower urinary tract symptoms; R31.9 Hematuria, unspecified; C61 Malignant neoplasm of prostate; K76.9 Liver disease, unspecified; I63.9 Cerebral infarction, unspecified | CPT/HCPCS: 36415; 80053; 84153; 84403; 85025; G0277; G0463 ==

== ENCOUNTER 2023-08-18 04:28 | Day surgery (SDC) | payer OTHER | END 2023-08-18 22:56 | disposition home or self-care (01) | LOC: HBO 04:28 | DX: M86.672 Other chronic osteomyelitis, left ankle and foot (principal); G62.9 Polyneuropathy, unspecified; L89.894 Pressure ulcer of other site, stage 4; L97.812 Non-pressure chronic ulcer of other part of right lower leg with fat layer exposed; T81.89XD Other complications of procedures, not elsewhere classified, subsequent encounter; Z89.421 Acquired absence of other right toe(s) | CPT/HCPCS: G0277 ==

== ENCOUNTER 2023-08-19 04:28 | Day surgery (SDC) | payer OTHER | END 2023-08-19 22:40 | disposition home or self-care (01) | LOC: HBO 04:28 | DX: L89.894 Pressure ulcer of other site, stage 4 (principal); M86.672 Other chronic osteomyelitis, left ankle and foot; G62.9 Polyneuropathy, unspecified; L97.812 Non-pressure chronic ulcer of other part of right lower leg with fat layer exposed; Z89.421 Acquired absence of other right toe(s); T81.89XD Other complications of procedures, not elsewhere classified, subsequent encounter | CPT/HCPCS: G0277 ==

== ENCOUNTER 2023-08-20 04:05 | Day surgery (SDC) | payer OTHER | END 2023-08-20 22:47 | disposition home or self-care (01) | LOC: HBO 04:05 | DX: L89.894 Pressure ulcer of other site, stage 4 (principal); M86.672 Other chronic osteomyelitis, left ankle and foot; G62.9 Polyneuropathy, unspecified; L97.812 Non-pressure chronic ulcer of other part of right lower leg with fat layer exposed; Z89.421 Acquired absence of other right toe(s); T81.89XD Other complications of procedures, not elsewhere classified, subsequent encounter | CPT/HCPCS: G0277 ==

== ENCOUNTER 2023-08-21 02:55 | Day surgery (SDC) | payer OTHER | END 2023-08-21 22:54 | disposition home or self-care (01) | LOC: HBO 02:55 | DX: M86.672 Other chronic osteomyelitis, left ankle and foot (principal); G62.9 Polyneuropathy, unspecified; L89.894 Pressure ulcer of other site, stage 4; L89.893 Pressure ulcer of other site, stage 3; L97.812 Non-pressure chronic ulcer of other part of right lower leg with fat layer exposed; Z89.421 Acquired absence of other right toe(s); T81.89XD Other complications of procedures, not elsewhere classified, subsequent encounter; Y83.8 Other surgical procedures as the cause of abnormal reaction of the patient, or of later complication, without mention of misadventure at the time of the procedure | CPT/HCPCS: G0277 ==

== ENCOUNTER 2023-08-22 04:03 | Day surgery (SDC) | payer OTHER | END 2023-08-22 22:40 | disposition home or self-care (01) | LOC: HBO 04:03 | DX: L89.894 Pressure ulcer of other site, stage 4 (principal); M86.672 Other chronic osteomyelitis, left ankle and foot; L97.812 Non-pressure chronic ulcer of other part of right lower leg with fat layer exposed; T81.89XD Other complications of procedures, not elsewhere classified, subsequent encounter; G62.9 Polyneuropathy, unspecified; Z89.421 Acquired absence of other right toe(s) | CPT/HCPCS: 87070; 87075; 87076; 87077; 87205; G0277; G0463 ==

== ENCOUNTER 2023-08-25 02:06 | Day surgery (SDC) | payer OTHER | END 2023-08-25 22:47 | disposition home or self-care (01) | LOC: HBO 02:06 | DX: M86.672 Other chronic osteomyelitis, left ankle and foot (principal); T81.89XD Other complications of procedures, not elsewhere classified, subsequent encounter; G62.9 Polyneuropathy, unspecified; L89.894 Pressure ulcer of other site, stage 4; L89.893 Pressure ulcer of other site, stage 3; L97.812 Non-pressure chronic ulcer of other part of right lower leg with fat layer exposed; Z89.421 Acquired absence of other right toe(s) | CPT/HCPCS: G0277 ==

== ENCOUNTER 2023-08-26 00:48 | Day surgery (SDC) | payer OTHER | END 2023-08-26 22:49 | disposition home or self-care (01) | LOC: HBO 00:48 | DX: M86.672 Other chronic osteomyelitis, left ankle and foot (principal); G62.9 Polyneuropathy, unspecified; L89.894 Pressure ulcer of other site, stage 4; L89.893 Pressure ulcer of other site, stage 3; L97.812 Non-pressure chronic ulcer of other part of right lower leg with fat layer exposed; T81.89XD Other complications of procedures, not elsewhere classified, subsequent encounter; Z89.421 Acquired absence of other right toe(s); Y83.8 Other surgical procedures as the cause of abnormal reaction of the patient, or of later complication, without mention of misadventure at the time of the procedure | CPT/HCPCS: G0277 ==

== ENCOUNTER 2023-08-27 01:14 | Day surgery (SDC) | payer OTHER | END 2023-08-27 22:43 | disposition home or self-care (01) | LOC: HBO 01:14 | DX: M86.672 Other chronic osteomyelitis, left ankle and foot (principal); G62.9 Polyneuropathy, unspecified; L89.894 Pressure ulcer of other site, stage 4; L89.893 Pressure ulcer of other site, stage 3; L97.812 Non-pressure chronic ulcer of other part of right lower leg with fat layer exposed; T81.89XD Other complications of procedures, not elsewhere classified, subsequent encounter; Z89.421 Acquired absence of other right toe(s); Y83.8 Other surgical procedures as the cause of abnormal reaction of the patient, or of later complication, without mention of misadventure at the time of the procedure | CPT/HCPCS: G0277 ==

== ENCOUNTER 2023-08-29 03:09 | Day surgery (SDC) | payer OTHER | END 2023-08-29 23:40 | disposition home or self-care (01) | LOC: HBO 03:09 | DX: L89.894 Pressure ulcer of other site, stage 4 (principal); L89.893 Pressure ulcer of other site, stage 3; L89.614 Pressure ulcer of right heel, stage 4; L89.624 Pressure ulcer of left heel, stage 4; M86.672 Other chronic osteomyelitis, left ankle and foot; G62.9 Polyneuropathy, unspecified; L97.812 Non-pressure chronic ulcer of other part of right lower leg with fat layer exposed; Z89.421 Acquired absence of other right toe(s); T81.89XD Other complications of procedures, not elsewhere classified, subsequent encounter | CPT/HCPCS: G0277; G0463 ==

== ENCOUNTER 2023-08-29 03:14 | Day surgery (SDC) | payer OTHER | END 2023-08-29 23:42 | disposition home or self-care (01) | LOC: WOUND 03:14 | DX: L89.624 Pressure ulcer of left heel, stage 4 (principal); L89.614 Pressure ulcer of right heel, stage 4; M86.672 Other chronic osteomyelitis, left ankle and foot; G62.9 Polyneuropathy, unspecified; L97.812 Non-pressure chronic ulcer of other part of right lower leg with fat layer exposed; Z89.421 Acquired absence of other right toe(s); T81.89XD Other complications of procedures, not elsewhere classified, subsequent encounter | CPT/HCPCS: G0463 ==

== ENCOUNTER 2023-09-04 01:03 | Day surgery (SDC) | payer OTHER | END 2023-09-04 22:39 | disposition home or self-care (01) | LOC: WOUND 01:03 | DX: M86.672 Other chronic osteomyelitis, left ankle and foot (principal); L89.894 Pressure ulcer of other site, stage 4; L89.893 Pressure ulcer of other site, stage 3; L97.812 Non-pressure chronic ulcer of other part of right lower leg with fat layer exposed; G62.9 Polyneuropathy, unspecified; T81.89XD Other complications of procedures, not elsewhere classified, subsequent encounter; Y83.8 Other surgical procedures as the cause of abnormal reaction of the patient, or of later complication, without mention of misadventure at the time of the procedure; Z89.421 Acquired absence of other right toe(s) | CPT/HCPCS: G0463 ==

== ENCOUNTER 2023-09-10 02:44 | Day surgery (SDC) | payer MEDICARE, OTHER | END 2023-09-10 22:37 | disposition home or self-care (01) | LOC: HBO 02:44 | DX: M86.672 Other chronic osteomyelitis, left ankle and foot (principal); G62.9 Polyneuropathy, unspecified; L89.894 Pressure ulcer of other site, stage 4; L89.893 Pressure ulcer of other site, stage 3; L97.812 Non-pressure chronic ulcer of other part of right lower leg with fat layer exposed; T81.89XD Other complications of procedures, not elsewhere classified, subsequent encounter; Z89.421 Acquired absence of other right toe(s) | CPT/HCPCS: G0277 ==

== ENCOUNTER 2023-09-11 04:50 | Day surgery (SDC) | payer MEDICARE, OTHER | END 2023-09-11 22:45 | disposition home or self-care (01) | LOC: HBO 04:50 | DX: M86.672 Other chronic osteomyelitis, left ankle and foot (principal); L89.894 Pressure ulcer of other site, stage 4; L89.893 Pressure ulcer of other site, stage 3; L97.812 Non-pressure chronic ulcer of other part of right lower leg with fat layer exposed; T81.89XD Other complications of procedures, not elsewhere classified, subsequent encounter; G62.9 Polyneuropathy, unspecified; Z89.421 Acquired absence of other right toe(s); Y83.9 Surgical procedure, unspecified as the cause of abnormal reaction of the patient, or of later complication, without mention of misadventure at the time of the procedure | CPT/HCPCS: G0277 ==

== ENCOUNTER 2023-09-12 02:58 | Day surgery (SDC) | payer MEDICARE, OTHER | END 2023-09-12 22:53 | disposition home or self-care (01) | LOC: HBO 02:58 | DX: M86.672 Other chronic osteomyelitis, left ankle and foot (principal); L89.894 Pressure ulcer of other site, stage 4; G62.9 Polyneuropathy, unspecified; L89.893 Pressure ulcer of other site, stage 3; L97.812 Non-pressure chronic ulcer of other part of right lower leg with fat layer exposed; Z89.421 Acquired absence of other right toe(s); T81.89XD Other complications of procedures, not elsewhere classified, subsequent encounter | CPT/HCPCS: G0277; G0463 ==

== ENCOUNTER 2023-09-12 03:08 | Day surgery (SDC) | payer MEDICARE, OTHER | END 2023-09-12 22:53 | disposition home or self-care (01) | LOC: WOUND 03:08 | DX: L89.894 Pressure ulcer of other site, stage 4 (principal); M86.672 Other chronic osteomyelitis, left ankle and foot; G62.9 Polyneuropathy, unspecified; L89.893 Pressure ulcer of other site, stage 3; L97.812 Non-pressure chronic ulcer of other part of right lower leg with fat layer exposed; Z89.421 Acquired absence of other right toe(s); T81.89XD Other complications of procedures, not elsewhere classified, subsequent encounter | CPT/HCPCS: G0463 ==

== ENCOUNTER 2023-09-17 01:26 | Day surgery (SDC) | payer MEDICARE, OTHER | END 2023-09-17 22:43 | disposition home or self-care (01) | LOC: WOUND 01:26 | DX: L89.624 Pressure ulcer of left heel, stage 4 (principal); M86.672 Other chronic osteomyelitis, left ankle and foot; G62.9 Polyneuropathy, unspecified; L89.894 Pressure ulcer of other site, stage 4; L97.812 Non-pressure chronic ulcer of other part of right lower leg with fat layer exposed; Z89.421 Acquired absence of other right toe(s); T81.89XD Other complications of procedures, not elsewhere classified, subsequent encounter | CPT/HCPCS: G0463 ==

== ENCOUNTER 2023-09-19 02:26 | Day surgery (SDC) | payer MEDICARE, OTHER | END 2023-09-19 22:44 | disposition home or self-care (01) | LOC: WOUND 02:26 | DX: L89.894 Pressure ulcer of other site, stage 4 (principal); M86.672 Other chronic osteomyelitis, left ankle and foot; G62.9 Polyneuropathy, unspecified; L89.893 Pressure ulcer of other site, stage 3; L97.812 Non-pressure chronic ulcer of other part of right lower leg with fat layer exposed; Z89.421 Acquired absence of other right toe(s); T81.89XD Other complications of procedures, not elsewhere classified, subsequent encounter | CPT/HCPCS: G0463 ==

== ENCOUNTER 2023-09-22 03:29 | Day surgery (SDC) | payer MEDICARE, OTHER | END 2023-09-22 22:55 | disposition home or self-care (01) | LOC: HBO 03:29 | DX: M86.672 Other chronic osteomyelitis, left ankle and foot (principal); L89.894 Pressure ulcer of other site, stage 4; L89.893 Pressure ulcer of other site, stage 3; L97.812 Non-pressure chronic ulcer of other part of right lower leg with fat layer exposed; T81.89XD Other complications of procedures, not elsewhere classified, subsequent encounter; Y83.8 Other surgical procedures as the cause of abnormal reaction of the patient, or of later complication, without mention of misadventure at the time of the procedure; G62.9 Polyneuropathy, unspecified; Z89.421 Acquired absence of other right toe(s) | CPT/HCPCS: G0277 ==

== ENCOUNTER 2023-09-23 03:51 | Day surgery (SDC) | payer MEDICARE, OTHER | END 2023-09-23 22:41 | disposition home or self-care (01) | LOC: HBO 03:51 | DX: M86.672 Other chronic osteomyelitis, left ankle and foot (principal); G62.9 Polyneuropathy, unspecified; L89.894 Pressure ulcer of other site, stage 4; L89.893 Pressure ulcer of other site, stage 3; L97.812 Non-pressure chronic ulcer of other part of right lower leg with fat layer exposed; Z89.421 Acquired absence of other right toe(s); Y83.8 Other surgical procedures as the cause of abnormal reaction of the patient, or of later complication, without mention of misadventure at the time of the procedure; T81.89XD Other complications of procedures, not elsewhere classified, subsequent encounter | CPT/HCPCS: G0277 ==

== ENCOUNTER 2023-09-24 02:42 | Day surgery (SDC) | payer MEDICARE, OTHER | END 2023-09-24 23:14 | disposition home or self-care (01) | LOC: HBO 02:42 | DX: L89.894 Pressure ulcer of other site, stage 4 (principal); M86.672 Other chronic osteomyelitis, left ankle and foot; G62.9 Polyneuropathy, unspecified; L97.812 Non-pressure chronic ulcer of other part of right lower leg with fat layer exposed; Z89.421 Acquired absence of other right toe(s); T81.89XD Other complications of procedures, not elsewhere classified, subsequent encounter | CPT/HCPCS: G0277 ==

== ENCOUNTER 2023-09-25 02:01 | Day surgery (SDC) | payer MEDICARE, OTHER | END 2023-09-25 22:52 | disposition home or self-care (01) | LOC: HBO 02:01 | DX: T81.89XD Other complications of procedures, not elsewhere classified, subsequent encounter (principal); M86.672 Other chronic osteomyelitis, left ankle and foot; G62.9 Polyneuropathy, unspecified; L89.894 Pressure ulcer of other site, stage 4; L89.893 Pressure ulcer of other site, stage 3; L97.812 Non-pressure chronic ulcer of other part of right lower leg with fat layer exposed; Z89.421 Acquired absence of other right toe(s) | CPT/HCPCS: G0277 ==

== ENCOUNTER 2023-09-26 01:16 | Day surgery (SDC) | payer MEDICARE, OTHER | END 2023-09-27 22:39 | disposition home or self-care (01) | LOC: HBO 01:16 | DX: L89.894 Pressure ulcer of other site, stage 4 (principal); M86.672 Other chronic osteomyelitis, left ankle and foot; G62.9 Polyneuropathy, unspecified; L97.812 Non-pressure chronic ulcer of other part of right lower leg with fat layer exposed; T81.89XD Other complications of procedures, not elsewhere classified, subsequent encounter; I10 Essential (primary) hypertension; L89.893 Pressure ulcer of other site, stage 3; Z89.421 Acquired absence of other right toe(s) | CPT/HCPCS: 73630; G0277 ==

== ENCOUNTER 2023-09-26 01:27 | Day surgery (SDC) | payer MEDICARE, OTHER | END 2023-09-27 22:39 | disposition home or self-care (01) | LOC: WOUND 01:27 | DX: L89.894 Pressure ulcer of other site, stage 4 (principal); I10 Essential (primary) hypertension; M86.672 Other chronic osteomyelitis, left ankle and foot; G62.9 Polyneuropathy, unspecified; L89.893 Pressure ulcer of other site, stage 3; T81.89XD Other complications of procedures, not elsewhere classified, subsequent encounter; Z89.421 Acquired absence of other right toe(s) ==

== ENCOUNTER 2023-09-29 03:28 | Day surgery (SDC) | payer MEDICARE, OTHER | END 2023-09-29 22:44 | disposition home or self-care (01) | LOC: HBO 03:28 | DX: M86.672 Other chronic osteomyelitis, left ankle and foot (principal); G62.9 Polyneuropathy, unspecified; L89.894 Pressure ulcer of other site, stage 4; L89.893 Pressure ulcer of other site, stage 3; L97.812 Non-pressure chronic ulcer of other part of right lower leg with fat layer exposed; T81.89XD Other complications of procedures, not elsewhere classified, subsequent encounter; Z89.421 Acquired absence of other right toe(s) | CPT/HCPCS: G0277 ==

== ENCOUNTER 2023-09-30 02:30 | Day surgery (SDC) | payer MEDICARE, OTHER | END 2023-09-30 22:37 | disposition home or self-care (01) | LOC: HBO 02:30 | DX: M86.672 Other chronic osteomyelitis, left ankle and foot (principal); G62.9 Polyneuropathy, unspecified; L89.894 Pressure ulcer of other site, stage 4; L89.893 Pressure ulcer of other site, stage 3; L97.812 Non-pressure chronic ulcer of other part of right lower leg with fat layer exposed; T81.89XD Other complications of procedures, not elsewhere classified, subsequent encounter; Z89.421 Acquired absence of other right toe(s) | CPT/HCPCS: G0277 ==

== ENCOUNTER 2023-10-01 02:48 | Day surgery (SDC) | payer MEDICARE, OTHER | END 2023-10-01 22:50 | disposition home or self-care (01) | LOC: HBO 02:48 | DX: M86.672 Other chronic osteomyelitis, left ankle and foot (principal); G62.9 Polyneuropathy, unspecified; L89.894 Pressure ulcer of other site, stage 4; L89.893 Pressure ulcer of other site, stage 3; L97.812 Non-pressure chronic ulcer of other part of right lower leg with fat layer exposed; T81.89XD Other complications of procedures, not elsewhere classified, subsequent encounter; Y83.8 Other surgical procedures as the cause of abnormal reaction of the patient, or of later complication, without mention of misadventure at the time of the procedure; Z89.421 Acquired absence of other right toe(s) | CPT/HCPCS: G0277; G0463 ==

== ENCOUNTER 2023-10-01 07:33 | Day surgery (SDC) | payer MEDICARE, OTHER | END 2023-10-01 22:52 | disposition home or self-care (01) | LOC: WOUND 07:33 | DX: L89.894 Pressure ulcer of other site, stage 4 (principal); M86.672 Other chronic osteomyelitis, left ankle and foot; L89.893 Pressure ulcer of other site, stage 3; L97.812 Non-pressure chronic ulcer of other part of right lower leg with fat layer exposed; T81.89XD Other complications of procedures, not elsewhere classified, subsequent encounter; Z89.421 Acquired absence of other right toe(s); Y83.8 Other surgical procedures as the cause of abnormal reaction of the patient, or of later complication, without mention of misadventure at the time of the procedure | CPT/HCPCS: G0463 ==

== ENCOUNTER 2023-10-02 04:39 | Day surgery (SDC) | payer MEDICARE, OTHER | END 2023-10-02 22:56 | disposition home or self-care (01) | LOC: HBO 04:39 | DX: M86.672 Other chronic osteomyelitis, left ankle and foot (principal); L89.894 Pressure ulcer of other site, stage 4; L89.893 Pressure ulcer of other site, stage 3; L97.812 Non-pressure chronic ulcer of other part of right lower leg with fat layer exposed; G62.9 Polyneuropathy, unspecified; Z89.421 Acquired absence of other right toe(s) | CPT/HCPCS: G0277 ==

== ENCOUNTER 2023-10-03 00:26 | Day surgery (SDC) | payer MEDICARE, OTHER | END 2023-10-03 23:16 | disposition home or self-care (01) | LOC: HBO 00:26 | DX: L89.894 Pressure ulcer of other site, stage 4 (principal); G62.9 Polyneuropathy, unspecified; M86.672 Other chronic osteomyelitis, left ankle and foot; L97.812 Non-pressure chronic ulcer of other part of right lower leg with fat layer exposed; Z89.421 Acquired absence of other right toe(s); T81.89XD Other complications of procedures, not elsewhere classified, subsequent encounter; C61 Malignant neoplasm of prostate; D64.9 Anemia, unspecified; I10 Essential (primary) hypertension; K76.9 Liver disease, unspecified; I63.9 Cerebral infarction, unspecified; R16.0 Hepatomegaly, not elsewhere classified; D17.9 Benign lipomatous neoplasm, unspecified; N28.1 Cyst of kidney, acquired | CPT/HCPCS: 74170; G0277; Q9967 ==

== ENCOUNTER 2023-10-06 02:54 | Day surgery (SDC) | payer MEDICARE, OTHER | END 2023-10-06 23:29 | disposition home or self-care (01) | LOC: HBO 02:54 | DX: L89.894 Pressure ulcer of other site, stage 4 (principal); M86.672 Other chronic osteomyelitis, left ankle and foot; G62.9 Polyneuropathy, unspecified; L97.812 Non-pressure chronic ulcer of other part of right lower leg with fat layer exposed; T81.89XD Other complications of procedures, not elsewhere classified, subsequent encounter; M85.88 Other specified disorders of bone density and structure, other site; C61 Malignant neoplasm of prostate; I10 Essential (primary) hypertension; K76.9 Liver disease, unspecified; I63.9 Cerebral infarction, unspecified; Z89.421 Acquired absence of other right toe(s) | CPT/HCPCS: 77080; G0277 ==

== ENCOUNTER 2023-10-07 00:30 | Day surgery (SDC) | payer MEDICARE, OTHER | END 2023-10-07 22:37 | disposition home or self-care (01) | LOC: HBO 00:30 | DX: L89.894 Pressure ulcer of other site, stage 4 (principal); M86.672 Other chronic osteomyelitis, left ankle and foot; G62.9 Polyneuropathy, unspecified; L97.812 Non-pressure chronic ulcer of other part of right lower leg with fat layer exposed; Z89.421 Acquired absence of other right toe(s); T81.89XD Other complications of procedures, not elsewhere classified, subsequent encounter | CPT/HCPCS: G0277 ==

== ENCOUNTER 2023-10-08 02:51 | Day surgery (SDC) | payer MEDICARE, OTHER | END 2023-10-08 23:07 | disposition home or self-care (01) | LOC: HBO 02:51 | DX: L89.894 Pressure ulcer of other site, stage 4 (principal); M86.672 Other chronic osteomyelitis, left ankle and foot; G62.9 Polyneuropathy, unspecified; L97.812 Non-pressure chronic ulcer of other part of right lower leg with fat layer exposed; Z89.421 Acquired absence of other right toe(s); T81.89XD Other complications of procedures, not elsewhere classified, subsequent encounter | CPT/HCPCS: G0277 ==

== ENCOUNTER 2023-10-10 01:19 | Day surgery (SDC) | payer MEDICARE, OTHER | END 2023-10-10 22:40 | disposition home or self-care (01) | LOC: HBO 01:19 | DX: M86.672 Other chronic osteomyelitis, left ankle and foot (principal); G62.9 Polyneuropathy, unspecified; L89.894 Pressure ulcer of other site, stage 4; L89.893 Pressure ulcer of other site, stage 3; L97.812 Non-pressure chronic ulcer of other part of right lower leg with fat layer exposed; T81.89XD Other complications of procedures, not elsewhere classified, subsequent encounter; Z89.421 Acquired absence of other right toe(s) | CPT/HCPCS: G0277 ==

== ENCOUNTER 2023-10-10 01:30 | Day surgery (SDC) | payer MEDICARE, OTHER | END 2023-10-10 22:41 | disposition home or self-care (01) | LOC: WOUND 01:30 | DX: L89.624 Pressure ulcer of left heel, stage 4 (principal); L89.614 Pressure ulcer of right heel, stage 4; I10 Essential (primary) hypertension; M86.672 Other chronic osteomyelitis, left ankle and foot; G62.9 Polyneuropathy, unspecified; L97.812 Non-pressure chronic ulcer of other part of right lower leg with fat layer exposed; Z89.421 Acquired absence of other right toe(s); T81.89XD Other complications of procedures, not elsewhere classified, subsequent encounter | CPT/HCPCS: G0463 ==

== ENCOUNTER 2023-10-13 08:39 | Day surgery (SDC) | payer MEDICARE, OTHER | END 2023-10-13 23:00 | disposition home or self-care (01) | LOC: HBO 08:39 | DX: M86.672 Other chronic osteomyelitis, left ankle and foot (principal); G62.9 Polyneuropathy, unspecified; L89.894 Pressure ulcer of other site, stage 4; L89.893 Pressure ulcer of other site, stage 3; L97.812 Non-pressure chronic ulcer of other part of right lower leg with fat layer exposed; T81.89XD Other complications of procedures, not elsewhere classified, subsequent encounter; Z89.421 Acquired absence of other right toe(s) | CPT/HCPCS: G0277 ==

== ENCOUNTER 2023-10-14 01:55 | Day surgery (SDC) | payer MEDICARE, OTHER | END 2023-10-15 00:15 | disposition home or self-care (01) | LOC: HBO 01:55 | DX: M86.672 Other chronic osteomyelitis, left ankle and foot (principal); G62.9 Polyneuropathy, unspecified; L89.894 Pressure ulcer of other site, stage 4; L89.893 Pressure ulcer of other site, stage 3; L97.812 Non-pressure chronic ulcer of other part of right lower leg with fat layer exposed; T81.89XD Other complications of procedures, not elsewhere classified, subsequent encounter; Z89.421 Acquired absence of other right toe(s) | CPT/HCPCS: G0277 ==

== ENCOUNTER 2023-10-15 01:23 | Day surgery (SDC) | payer MEDICARE, OTHER | END 2023-10-15 23:19 | disposition home or self-care (01) | LOC: HBO 01:23 | DX: L89.894 Pressure ulcer of other site, stage 4 (principal); G62.9 Polyneuropathy, unspecified; M86.672 Other chronic osteomyelitis, left ankle and foot; L97.812 Non-pressure chronic ulcer of other part of right lower leg with fat layer exposed; T81.89XD Other complications of procedures, not elsewhere classified, subsequent encounter; E78.2 Mixed hyperlipidemia; R73.03 Prediabetes; Z89.421 Acquired absence of other right toe(s) | CPT/HCPCS: 36415; 80053; 80061; 83036; 85025; G0277 ==

== ENCOUNTER 2023-10-16 01:47 | Day surgery (SDC) | payer MEDICARE, OTHER | END 2023-10-16 22:45 | disposition home or self-care (01) | LOC: HBO 01:47 | DX: M86.672 Other chronic osteomyelitis, left ankle and foot (principal); G62.9 Polyneuropathy, unspecified; L89.894 Pressure ulcer of other site, stage 4; L89.893 Pressure ulcer of other site, stage 3; L97.812 Non-pressure chronic ulcer of other part of right lower leg with fat layer exposed; T81.89XD Other complications of procedures, not elsewhere classified, subsequent encounter; Y83.8 Other surgical procedures as the cause of abnormal reaction of the patient, or of later complication, without mention of misadventure at the time of the procedure | CPT/HCPCS: G0277 ==

== ENCOUNTER 2023-10-17 00:39 | Day surgery (SDC) | payer MEDICARE, OTHER | END 2023-10-17 22:52 | disposition home or self-care (01) | LOC: WOUND 00:39 | DX: L89.624 Pressure ulcer of left heel, stage 4 (principal); L89.614 Pressure ulcer of right heel, stage 4; Z89.432 Acquired absence of left foot; Z89.431 Acquired absence of right foot; M86.672 Other chronic osteomyelitis, left ankle and foot; G62.9 Polyneuropathy, unspecified; L97.812 Non-pressure chronic ulcer of other part of right lower leg with fat layer exposed; T81.89XD Other complications of procedures, not elsewhere classified, subsequent encounter | CPT/HCPCS: G0463 ==

== ENCOUNTER 2023-10-17 00:42 | Day surgery (SDC) | payer MEDICARE, OTHER | END 2023-10-17 22:53 | disposition home or self-care (01) | LOC: HBO 00:42 | DX: L89.894 Pressure ulcer of other site, stage 4 (principal); L89.893 Pressure ulcer of other site, stage 3; M86.672 Other chronic osteomyelitis, left ankle and foot; G62.9 Polyneuropathy, unspecified; L97.812 Non-pressure chronic ulcer of other part of right lower leg with fat layer exposed; T81.89XD Other complications of procedures, not elsewhere classified, subsequent encounter; L89.624 Pressure ulcer of left heel, stage 4; L89.614 Pressure ulcer of right heel, stage 4; Z89.421 Acquired absence of other right toe(s); Z89.432 Acquired absence of left foot; Z89.431 Acquired absence of right foot | CPT/HCPCS: G0277; G0463 ==

== ENCOUNTER 2023-10-20 00:13 | Day surgery (SDC) | payer MEDICARE, OTHER | END 2023-10-20 23:41 | disposition home or self-care (01) | LOC: HBO 00:13 | DX: M86.672 Other chronic osteomyelitis, left ankle and foot (principal); L89.894 Pressure ulcer of other site, stage 4; L89.893 Pressure ulcer of other site, stage 3; L97.812 Non-pressure chronic ulcer of other part of right lower leg with fat layer exposed; T81.89XD Other complications of procedures, not elsewhere classified, subsequent encounter; Z89.421 Acquired absence of other right toe(s); Y83.8 Other surgical procedures as the cause of abnormal reaction of the patient, or of later complication, without mention of misadventure at the time of the procedure | CPT/HCPCS: G0277 ==

== ENCOUNTER 2023-10-21 01:57 | Day surgery (SDC) | payer MEDICARE, OTHER | END 2023-10-21 23:22 | disposition home or self-care (01) | LOC: HBO 01:57 | DX: M86.672 Other chronic osteomyelitis, left ankle and foot (principal); G62.9 Polyneuropathy, unspecified; L89.894 Pressure ulcer of other site, stage 4; L89.893 Pressure ulcer of other site, stage 3; L97.812 Non-pressure chronic ulcer of other part of right lower leg with fat layer exposed; T81.89XD Other complications of procedures, not elsewhere classified, subsequent encounter; Z89.421 Acquired absence of other right toe(s) | CPT/HCPCS: G0277 ==

== ENCOUNTER 2023-10-22 00:18 | Day surgery (SDC) | payer MEDICARE, OTHER | END 2023-10-22 22:34 | disposition home or self-care (01) | LOC: HBO 00:18 | DX: M86.672 Other chronic osteomyelitis, left ankle and foot (principal); G62.9 Polyneuropathy, unspecified; L89.894 Pressure ulcer of other site, stage 4; L89.893 Pressure ulcer of other site, stage 3; L97.812 Non-pressure chronic ulcer of other part of right lower leg with fat layer exposed; T81.89XD Other complications of procedures, not elsewhere classified, subsequent encounter; Z89.421 Acquired absence of other right toe(s) | CPT/HCPCS: G0277 ==

== ENCOUNTER 2023-10-23 01:39 | Day surgery (SDC) | payer MEDICARE, OTHER | END 2023-10-23 22:42 | disposition home or self-care (01) | LOC: HBO 01:39 | DX: M86.672 Other chronic osteomyelitis, left ankle and foot (principal); G62.9 Polyneuropathy, unspecified; L89.894 Pressure ulcer of other site, stage 4; L89.893 Pressure ulcer of other site, stage 3; L97.812 Non-pressure chronic ulcer of other part of right lower leg with fat layer exposed; Z89.421 Acquired absence of other right toe(s); T81.89XD Other complications of procedures, not elsewhere classified, subsequent encounter; R09.02 Hypoxemia | CPT/HCPCS: 71046; G0277 ==

== ENCOUNTER 2023-10-24 01:55 | Day surgery (SDC) | payer MEDICARE, OTHER | END 2023-10-24 22:55 | disposition home or self-care (01) | LOC: WOUND 01:55 | DX: L89.624 Pressure ulcer of left heel, stage 4 (principal); L89.614 Pressure ulcer of right heel, stage 4; I10 Essential (primary) hypertension; M86.672 Other chronic osteomyelitis, left ankle and foot; G62.9 Polyneuropathy, unspecified; L97.812 Non-pressure chronic ulcer of other part of right lower leg with fat layer exposed; Z89.421 Acquired absence of other right toe(s); T81.89XD Other complications of procedures, not elsewhere classified, subsequent encounter; R09.02 Hypoxemia | CPT/HCPCS: G0463 ==

== ENCOUNTER 2023-10-27 08:00 | Day surgery (SDC) | payer MEDICARE, OTHER | END 2023-10-27 22:37 | disposition home or self-care (01) | LOC: HBO 08:00 | DX: M86.672 Other chronic osteomyelitis, left ankle and foot (principal); L89.894 Pressure ulcer of other site, stage 4; L89.893 Pressure ulcer of other site, stage 3; L97.812 Non-pressure chronic ulcer of other part of right lower leg with fat layer exposed; T81.89XD Other complications of procedures, not elsewhere classified, subsequent encounter; Y83.8 Other surgical procedures as the cause of abnormal reaction of the patient, or of later complication, without mention of misadventure at the time of the procedure; G62.9 Polyneuropathy, unspecified; Z89.421 Acquired absence of other right toe(s); R09.02 Hypoxemia | CPT/HCPCS: G0463 ==

== ENCOUNTER 2023-10-31 05:21 | Day surgery (SDC) | payer MEDICARE, OTHER | END 2023-10-31 23:00 | disposition home or self-care (01) | LOC: WOUND 05:21 | DX: L89.894 Pressure ulcer of other site, stage 4 (principal); G62.9 Polyneuropathy, unspecified; M86.672 Other chronic osteomyelitis, left ankle and foot; Z89.421 Acquired absence of other right toe(s); T81.89XD Other complications of procedures, not elsewhere classified, subsequent encounter; R09.02 Hypoxemia; L97.812 Non-pressure chronic ulcer of other part of right lower leg with fat layer exposed | CPT/HCPCS: G0463 ==

== ENCOUNTER 2023-11-03 08:00 | Day surgery (SDC) | payer MEDICARE, OTHER | END 2023-11-04 22:34 | disposition home or self-care (01) | LOC: HBO 08:00 | DX: M86.672 Other chronic osteomyelitis, left ankle and foot (principal); G62.9 Polyneuropathy, unspecified; L89.894 Pressure ulcer of other site, stage 4; L89.893 Pressure ulcer of other site, stage 3; L97.812 Non-pressure chronic ulcer of other part of right lower leg with fat layer exposed; R09.02 Hypoxemia; T81.89XD Other complications of procedures, not elsewhere classified, subsequent encounter; Y83.8 Other surgical procedures as the cause of abnormal reaction of the patient, or of later complication, without mention of misadventure at the time of the procedure; Z89.421 Acquired absence of other right toe(s) | CPT/HCPCS: G0277 ==

== ENCOUNTER 2023-11-05 01:51 | Day surgery (SDC) | payer MEDICARE, OTHER | END 2023-11-05 22:48 | disposition home or self-care (01) | LOC: HBO 01:51 | DX: M86.672 Other chronic osteomyelitis, left ankle and foot (principal) | CPT/HCPCS: G0277 ==

== ENCOUNTER 2024-01-02 04:13 | Day surgery (SDC) | payer MEDICARE, OTHER ==
[~2024-01-02 04:13] MED LIST changes: +ASPI81CH PO; +COLACE100 MG PO; +LUPRON DEPOT22.5 M1 IM; +NALOXONE HCL4 MG
== END 2024-01-03 22:59 | disposition home or self-care (01) ==
LOC: WOUND 04:13
DX: L89.894 Pressure ulcer of other site, stage 4 (principal); L89.893 Pressure ulcer of other site, stage 3; L97.812 Non-pressure chronic ulcer of other part of right lower leg with fat layer exposed; M86.672 Other chronic osteomyelitis, left ankle and foot; G62.9 Polyneuropathy, unspecified; R09.02 Hypoxemia; T81.89XD Other complications of procedures, not elsewhere classified, subsequent encounter; Y83.8 Other surgical procedures as the cause of abnormal reaction of the patient, or of later complication, without mention of misadventure at the time of the procedure; Z89.421 Acquired absence of other right toe(s)
CPT/HCPCS: G0463

== ENCOUNTER 2024-01-09 04:08 | Day surgery (SDC) | payer MEDICARE, OTHER | END 2024-01-09 22:53 | disposition home or self-care (01) | LOC: WOUND 04:08 | DX: L89.894 Pressure ulcer of other site, stage 4 (principal); I10 Essential (primary) hypertension; M86.672 Other chronic osteomyelitis, left ankle and foot; G62.9 Polyneuropathy, unspecified; L89.893 Pressure ulcer of other site, stage 3; L97.812 Non-pressure chronic ulcer of other part of right lower leg with fat layer exposed; R09.02 Hypoxemia; T81.89XD Other complications of procedures, not elsewhere classified, subsequent encounter; Y83.8 Other surgical procedures as the cause of abnormal reaction of the patient, or of later complication, without mention of misadventure at the time of the procedure; Z89.421 Acquired absence of other right toe(s) | CPT/HCPCS: G0463 ==

== ENCOUNTER 2024-01-16 05:23 | Day surgery (SDC) | payer MEDICARE, OTHER | END 2024-01-16 22:35 | disposition home or self-care (01) | LOC: WOUND 05:23 | DX: L89.894 Pressure ulcer of other site, stage 4 (principal); L89.893 Pressure ulcer of other site, stage 3; L97.812 Non-pressure chronic ulcer of other part of right lower leg with fat layer exposed; M86.672 Other chronic osteomyelitis, left ankle and foot; G62.9 Polyneuropathy, unspecified; T81.89XD Other complications of procedures, not elsewhere classified, subsequent encounter; R09.02 Hypoxemia; I10 Essential (primary) hypertension; Z89.421 Acquired absence of other right toe(s) ==

== ENCOUNTER 2024-03-05 03:10 | Day surgery (SDC) | payer MEDICARE, OTHER | END 2024-03-05 23:04 | disposition home or self-care (01) | LOC: WOUND 03:10 | DX: L89.894 Pressure ulcer of other site, stage 4 (principal); L89.893 Pressure ulcer of other site, stage 3; I10 Essential (primary) hypertension; M86.672 Other chronic osteomyelitis, left ankle and foot; G62.9 Polyneuropathy, unspecified; L97.812 Non-pressure chronic ulcer of other part of right lower leg with fat layer exposed; T81.89XD Other complications of procedures, not elsewhere classified, subsequent encounter; R09.02 Hypoxemia; Z89.421 Acquired absence of other right toe(s) | CPT/HCPCS: Q4133 ==

== ENCOUNTER 2024-03-12 02:30 | Day surgery (SDC) | payer MEDICARE, OTHER | END 2024-03-12 23:11 | disposition home or self-care (01) | LOC: WOUND 02:30 | DX: L89.894 Pressure ulcer of other site, stage 4 (principal); M86.672 Other chronic osteomyelitis, left ankle and foot; G62.9 Polyneuropathy, unspecified; R09.02 Hypoxemia; Z89.421 Acquired absence of other right toe(s) | CPT/HCPCS: Q4133 ==

== ENCOUNTER 2024-03-17 02:27 | Day surgery (SDC) | payer MEDICARE, OTHER | END 2024-03-17 22:46 | disposition home or self-care (01) | LOC: WOUND 02:27 | DX: L89.894 Pressure ulcer of other site, stage 4 (principal); I10 Essential (primary) hypertension; M86.672 Other chronic osteomyelitis, left ankle and foot; G62.9 Polyneuropathy, unspecified; R06.02 Shortness of breath; Z89.421 Acquired absence of other right toe(s) | CPT/HCPCS: Q4133 ==

== ENCOUNTER 2024-03-24 03:18 | Day surgery (SDC) | payer MEDICARE, OTHER | END 2024-03-25 22:48 | disposition home or self-care (01) | LOC: WOUND 03:18 | DX: L89.894 Pressure ulcer of other site, stage 4 (principal); I10 Essential (primary) hypertension; G62.9 Polyneuropathy, unspecified; L89.893 Pressure ulcer of other site, stage 3; M86.672 Other chronic osteomyelitis, left ankle and foot; T81.89XD Other complications of procedures, not elsewhere classified, subsequent encounter; Z89.421 Acquired absence of other right toe(s) | CPT/HCPCS: Q4133 ==

== ENCOUNTER 2024-04-07 02:52 | Day surgery (SDC) | payer MEDICARE, OTHER | END 2024-04-07 22:51 | disposition home or self-care (01) | LOC: WOUND 02:52 | DX: L89.894 Pressure ulcer of other site, stage 4 (principal); L89.893 Pressure ulcer of other site, stage 3; M86.672 Other chronic osteomyelitis, left ankle and foot; G62.9 Polyneuropathy, unspecified; I10 Essential (primary) hypertension; T81.89XD Other complications of procedures, not elsewhere classified, subsequent encounter; Z89.421 Acquired absence of other right toe(s) | CPT/HCPCS: Q4133 ==

== ENCOUNTER 2024-04-28 05:42 | Day surgery (SDC) | payer MEDICARE, OTHER | END 2024-04-28 23:05 | disposition home or self-care (01) | LOC: WOUND 05:42 | DX: L89.614 Pressure ulcer of right heel, stage 4 (principal); L89.893 Pressure ulcer of other site, stage 3; M86.672 Other chronic osteomyelitis, left ankle and foot; G62.9 Polyneuropathy, unspecified; T81.89XD Other complications of procedures, not elsewhere classified, subsequent encounter; R09.02 Hypoxemia; Z89.421 Acquired absence of other right toe(s); I10 Essential (primary) hypertension | CPT/HCPCS: G0463 ==

== ENCOUNTER 2024-05-12 04:23 | Day surgery (SDC) | payer MEDICARE, OTHER | END 2024-05-12 22:40 | disposition home or self-care (01) | LOC: WOUND 04:23 | DX: L89.894 Pressure ulcer of other site, stage 4 (principal); L89.893 Pressure ulcer of other site, stage 3; M86.672 Other chronic osteomyelitis, left ankle and foot; G62.9 Polyneuropathy, unspecified; T81.89XA Other complications of procedures, not elsewhere classified, initial encounter; Z89.421 Acquired absence of other right toe(s); I10 Essential (primary) hypertension | CPT/HCPCS: G0463 ==

== ENCOUNTER → 2024-05-13 | Outpatient (CLI) | payer MEDICARE, OTHER ==
[2024-05-13 16:28] LABS: Source, Urine Voided
[2024-05-13 17:33] LABS: Appearance, Urine Cloudy (Clear); Bilirubin, Urine Neg (Neg); Blood, Urine 5+ (Neg); Color, Urine Yellow (P-Yellow); Glucose Qualitative, Urine Neg (Neg); Ketones, Urine Neg (Neg); Leukocyte Esterase, Urine Neg (Neg); Nitrite, Urine Neg (Neg); Protein, Urine 2+ (Neg); Urobilinogen, Urine NORM (Normal)
[2024-05-13 17:47] LABS: Bacteria Few /hpf; Hyaline Casts 0-2 /lpf (0-2); Red Blood Cells, Urine TNTC /hpf (0-2); Squamous Epithelial Cells Few /hpf (Few); White Blood Cells, Urine 0-2 /hpf (0-5)
== END ==
LOC: LAB SHORT 16:26 → LAB 16:26
PROVIDERS: Surgery
DX: C61 Malignant neoplasm of prostate (principal)
CPT/HCPCS: 81001

== ENCOUNTER 2024-05-28 04:40 | Day surgery (SDC) | payer MEDICARE, OTHER | END 2024-05-29 01:33 | disposition home or self-care (01) | LOC: WOUND 04:40 | DX: I10 Essential (primary) hypertension (principal) | CPT/HCPCS: G0463 ==

== ENCOUNTER 2024-06-09 02:25 | Day surgery (SDC) | payer MEDICARE, OTHER | END 2024-06-09 23:10 | disposition home or self-care (01) | LOC: WOUND 02:25 | DX: L89.894 Pressure ulcer of other site, stage 4 (principal); L89.893 Pressure ulcer of other site, stage 3; M86.672 Other chronic osteomyelitis, left ankle and foot; G62.9 Polyneuropathy, unspecified; Z89.421 Acquired absence of other right toe(s); T81.89XA Other complications of procedures, not elsewhere classified, initial encounter; R09.02 Hypoxemia; I10 Essential (primary) hypertension | CPT/HCPCS: G0463 ==

== ENCOUNTER 2024-06-16 04:34 | Day surgery (SDC) | payer MEDICARE, OTHER | END 2024-06-16 22:47 | disposition home or self-care (01) | LOC: WOUND 04:34 | DX: L89.614 Pressure ulcer of right heel, stage 4 (principal); L89.893 Pressure ulcer of other site, stage 3; M86.672 Other chronic osteomyelitis, left ankle and foot; G62.9 Polyneuropathy, unspecified; T81.89XD Other complications of procedures, not elsewhere classified, subsequent encounter; Z89.421 Acquired absence of other right toe(s); X58.XXXD Exposure to other specified factors, subsequent encounter | CPT/HCPCS: G0463 ==

== ENCOUNTER 2024-06-23 02:26 | Day surgery (SDC) | payer MEDICARE, OTHER | END 2024-06-23 23:00 | disposition home or self-care (01) | LOC: WOUND 02:26 | DX: L89.894 Pressure ulcer of other site, stage 4 (principal); I10 Essential (primary) hypertension; G62.9 Polyneuropathy, unspecified; Z89.421 Acquired absence of other right toe(s) | CPT/HCPCS: G0463 ==

== ENCOUNTER 2024-06-30 01:55 | Day surgery (SDC) | payer MEDICARE, OTHER | END 2024-06-30 22:59 | disposition home or self-care (01) | LOC: WOUND 01:55 | DX: L89.894 Pressure ulcer of other site, stage 4 (principal); E11.42 Type 2 diabetes mellitus with diabetic polyneuropathy; I10 Essential (primary) hypertension; L89.893 Pressure ulcer of other site, stage 3; E11.69 Type 2 diabetes mellitus with other specified complication; M86.672 Other chronic osteomyelitis, left ankle and foot; T81.89XD Other complications of procedures, not elsewhere classified, subsequent encounter; Z89.421 Acquired absence of other right toe(s); Y83.8 Other surgical procedures as the cause of abnormal reaction of the patient, or of later complication, without mention of misadventure at the time of the procedure | CPT/HCPCS: G0463 ==

== ENCOUNTER 2024-07-07 03:48 | Day surgery (SDC) | payer MEDICARE, OTHER | END 2024-07-07 23:31 | disposition home or self-care (01) | LOC: WOUND 03:48 | DX: L89.894 Pressure ulcer of other site, stage 4 (principal); L89.893 Pressure ulcer of other site, stage 3; M86.672 Other chronic osteomyelitis, left ankle and foot; Z89.421 Acquired absence of other right toe(s); T81.89XA Other complications of procedures, not elsewhere classified, initial encounter; R09.02 Hypoxemia; I10 Essential (primary) hypertension | CPT/HCPCS: G0463 ==

== ENCOUNTER 2024-07-14 03:31 | Day surgery (SDC) | payer MEDICARE, OTHER | END 2024-07-14 23:00 | disposition home or self-care (01) | LOC: WOUND 03:31 | DX: L89.614 Pressure ulcer of right heel, stage 4 (principal); L89.894 Pressure ulcer of other site, stage 4; I10 Essential (primary) hypertension; L89.893 Pressure ulcer of other site, stage 3; M86.672 Other chronic osteomyelitis, left ankle and foot; G62.9 Polyneuropathy, unspecified; T81.89XD Other complications of procedures, not elsewhere classified, subsequent encounter; Z89.421 Acquired absence of other right toe(s) | CPT/HCPCS: G0463 ==

== ENCOUNTER 2024-07-21 05:04 | Day surgery (SDC) | payer MEDICARE, OTHER ==
[2024-07-21] MEDS ORDERED: Silver Nitr/Potassium Nitrate 1 EA APPL ONE (14:43)
== END 2024-07-21 23:00 | disposition home or self-care (01) ==
LOC: WOUND 05:04
DX: L89.894 Pressure ulcer of other site, stage 4 (principal); I10 Essential (primary) hypertension; Z89.421 Acquired absence of other right toe(s)
CPT/HCPCS: A9270

== ENCOUNTER 2024-08-04 01:59 | Day surgery (SDC) | payer MEDICARE, OTHER | END 2024-08-04 22:44 | disposition home or self-care (01) | LOC: WOUND 01:59 | DX: L89.614 Pressure ulcer of right heel, stage 4 (principal); I10 Essential (primary) hypertension; L89.893 Pressure ulcer of other site, stage 3; M86.672 Other chronic osteomyelitis, left ankle and foot; G62.9 Polyneuropathy, unspecified; T81.89XD Other complications of procedures, not elsewhere classified, subsequent encounter; Z89.421 Acquired absence of other right toe(s) | CPT/HCPCS: G0463 ==

== ENCOUNTER 2024-08-11 03:28 | Day surgery (SDC) | payer MEDICARE, OTHER | END 2024-08-11 23:45 | disposition home or self-care (01) | LOC: WOUND 03:28 | DX: L89.614 Pressure ulcer of right heel, stage 4 (principal); L89.894 Pressure ulcer of other site, stage 4; L89.893 Pressure ulcer of other site, stage 3; M86.672 Other chronic osteomyelitis, left ankle and foot; I10 Essential (primary) hypertension; T81.89XD Other complications of procedures, not elsewhere classified, subsequent encounter; Z89.421 Acquired absence of other right toe(s) | CPT/HCPCS: G0463 ==

== ENCOUNTER 2024-08-18 03:44 | Day surgery (SDC) | payer MEDICARE, OTHER | END 2024-08-18 23:50 | disposition home or self-care (01) | LOC: WOUND 03:44 | DX: L89.894 Pressure ulcer of other site, stage 4 (principal); L89.893 Pressure ulcer of other site, stage 3; M86.672 Other chronic osteomyelitis, left ankle and foot; G62.9 Polyneuropathy, unspecified; T81.89XA Other complications of procedures, not elsewhere classified, initial encounter; Z89.421 Acquired absence of other right toe(s); I10 Essential (primary) hypertension | CPT/HCPCS: A6196; G0463 ==

== ENCOUNTER 2024-08-25 05:45 | Day surgery (SDC) | payer MEDICARE, OTHER | END 2024-08-25 23:00 | disposition home or self-care (01) | LOC: WOUND 05:45 | DX: L89.894 Pressure ulcer of other site, stage 4 (principal); I10 Essential (primary) hypertension; Z89.421 Acquired absence of other right toe(s) | CPT/HCPCS: G0463 ==

== ENCOUNTER 2024-09-11 09:28 | Emergency (ER) | payer MEDICARE, OTHER ==
[~2024-09-11] VITALS: Ht 193 cm; Wt 122.5 kg
[2024-09-11] MEDS ORDERED: NS 1,000 ML IV SCH (10:05)
[2024-09-11] MEDS ORDERED: Ondansetron HCl 2 MG / ML 2ML Vial IV ONE ×2 (10:05→11:35)
[2024-09-11 10:44] LABS: BASOPHILS ABSOLUTE AUTO 0.01 K/mm3 (0.00-0.23); BASOPHILS PERCENT AUTO 0 % (0-2); EOSINOPHILS PERCENT AUTO 0 % (0-6); Hematocrit 35.3 % (37.0-53.0); Hemoglobin 12.1 g/dL (13.5-17.5); IMMATURE GRAN ABSOLUTE AUTO 0.02 K/mm3 (0.00-0.10); IMMATURE GRAN PERCENT AUTO 0 % (0-1); LYMPHOCYTES ABSOLUTE AUTO 0.56 K/mm3 (0.84-5.20); LYMPHOCYTES PERCENT AUTO 10 % (21-46); MONOCYTES ABSOLUTE AUTO 0.78 K/mm3 (0.16-1.47); MONOCYTES PERCENT AUTO 13 % (4-13); Mean Corpuscular HGB 27.4 pg (26.0-34.0); Mean Corpuscular HGB Conc 34.3 g/dL (31.5-36.5); Mean Corpuscular Volume 80 fL (80-100); Mean Platelet Volume 9.7 fL (9.1-12.4); NEUTROPHILS ABSOLUTE AUTO 4.52 K/mm3 (1.96-9.15); NEUTROPHILS PERCENT AUTO 77 % (41-73); Platelet Count 146 K/mm3 (150-400); RDW Coefficient Variation 13.5 % (11.7-14.2); RDW Standard Deviation 39.2 fL (35.1-46.3); Red Blood Cell Count 4.42 M/mm3 (4.30-5.90); White Blood Cell Count 5.89 K/mm3 (4.00-11.30)
[2024-09-11 11:09] LABS: Albumin, Blood 3.6 g/dL (3.4-5.0); Albumin/Globulin Ratio 0.7 (0.8-1.8); Bilirubin, Total 1.1 mg/dL (0.1-1.0); Bun/Creatinine Ratio 24.2 (12.0-20.0); Calcium, Blood 9.8 mg/dL (8.5-10.1); Creatinine, Blood 0.66 mg/dL (0.60-1.20); Globulin, Blood 4.9 g/dL (2.2-4.0); Potassium, Blood 3.1 mmol/L (3.5-5.5); Total Protein, Blood 8.5 g/dL (6.4-8.2)
[2024-09-11] MEDS ORDERED: Ondansetron HCl 2 MG / ML 2ML Vial ONE (11:30)
[2024-09-11] MEDS ORDERED: Morphine Sulfate 4 MG/1 ML Injection IV ONE (11:55)
[2024-09-11 12:13] LABS: CORONAVIRUS COVID-19 AG Negative (NEGATIVE); INFLUENZA A AG Negative (NEGATIVE); INFLUENZA B AG Negative (NEGATIVE)
[2024-09-11 13:21] LABS: Source, Urine Clean Catch
[2024-09-11] MEDS ORDERED: Droperidol 5 mg/2 ml Vial IV ONE (13:25)
[2024-09-11 13:26] LABS: Appearance, Urine Clear (Clear); Bilirubin, Urine Neg (Neg); Blood, Urine 3+ (Neg); Color, Urine Yellow (P-Yellow); Glucose Qualitative, Urine Neg (Neg); Ketones, Urine 2+ (Neg); Leukocyte Esterase, Urine 1+ (Neg); Nitrite, Urine Neg (Neg); Protein, Urine 3+ (Neg); Specific Gravity, Urine 1.015 (1.003-1.022); Urobilinogen, Urine 1+ (Normal)
[2024-09-11] MEDS ORDERED: Metoclopramide HCl 5MG / ML 2ML Vial IV ONE (13:35)
[2024-09-11 13:43] LABS: Bacteria Few /hpf; Hyaline Casts 0-2 /lpf (0-2); Red Blood Cells, Urine 0-2 /hpf (0-2); Squamous Epithelial Cells Few /hpf (Few); White Blood Cells, Urine 0-2 /hpf (0-5)
[2024-09-11 14:15] VITALS: BP 146/81
[2024-09-11] MEDS ORDERED: ONDA4ODT MM (14:25)
[2024-09-11] MEDS ORDERED: DIPATR PO (14:25)
[2024-09-11] MEDS ORDERED: PROM25 PO (14:25)
== END 2024-09-11 14:32 | disposition home or self-care (01) ==
LOC: ER 09:28
PROVIDERS: Student in an Organized Health Care Education/Training Program
DX: B34.9 Viral infection, unspecified (principal); I10 Essential (primary) hypertension; Z86.73 Personal history of transient ischemic attack (TIA), and cerebral infarction without residual deficits; Z87.891 Personal history of nicotine dependence; Z88.8 Allergy status to other drugs, medicaments and biological substances; Z79.899 Other long term (current) drug therapy
CPT/HCPCS: 74177; 80053; 81001; 83690; 85025; 87086; 87428-QW; 93005; 93010; 96361; 96374-59; 96375; 96376; 99284-25; J2405; J2765; J7030; Q9967

== ENCOUNTER 2024-09-22 06:27 | Day surgery (SDC) | payer MEDICARE ==
[~2024-09-22 06:27] MED LIST changes: +DIPATR PO; +PROM25 PO
== END 2024-09-22 22:48 | disposition home or self-care (01) ==
LOC: WOUND 06:27
DX: L89.614 Pressure ulcer of right heel, stage 4 (principal); L89.894 Pressure ulcer of other site, stage 4; L89.893 Pressure ulcer of other site, stage 3; M86.672 Other chronic osteomyelitis, left ankle and foot; G62.9 Polyneuropathy, unspecified; T81.89XD Other complications of procedures, not elsewhere classified, subsequent encounter; R09.02 Hypoxemia; Z89.421 Acquired absence of other right toe(s); Y83.8 Other surgical procedures as the cause of abnormal reaction of the patient, or of later complication, without mention of misadventure at the time of the procedure
CPT/HCPCS: G0463

== ENCOUNTER 2024-10-06 03:20 | Day surgery (SDC) | payer MEDICARE, OTHER | END 2024-10-06 22:00 | disposition home or self-care (01) | LOC: WOUND 03:20 | DX: L89.894 Pressure ulcer of other site, stage 4 (principal); G62.9 Polyneuropathy, unspecified; M86.672 Other chronic osteomyelitis, left ankle and foot; I10 Essential (primary) hypertension; Z89.421 Acquired absence of other right toe(s); Z89.422 Acquired absence of other left toe(s) | CPT/HCPCS: A6196; G0463 ==

== ENCOUNTER 2024-10-13 05:25 | Day surgery (SDC) | payer MEDICARE, OTHER | END 2024-10-13 23:00 | disposition home or self-care (01) | LOC: WOUND 05:25 | DX: L89.614 Pressure ulcer of right heel, stage 4 (principal); I10 Essential (primary) hypertension; L89.894 Pressure ulcer of other site, stage 4; L89.893 Pressure ulcer of other site, stage 3; M86.672 Other chronic osteomyelitis, left ankle and foot; G62.9 Polyneuropathy, unspecified; Z89.421 Acquired absence of other right toe(s) | CPT/HCPCS: A6196; G0463 ==

== ENCOUNTER 2024-10-20 02:15 | Day surgery (SDC) | payer MEDICARE, OTHER | END 2024-10-20 23:00 | disposition home or self-care (01) | LOC: WOUND 02:15 | DX: L89.894 Pressure ulcer of other site, stage 4 (principal); M86.672 Other chronic osteomyelitis, left ankle and foot; G62.9 Polyneuropathy, unspecified; I10 Essential (primary) hypertension; Z89.421 Acquired absence of other right toe(s) ==

== ENCOUNTER → 2024-11-03 | Day surgery (SDC) | payer MEDICARE, OTHER | LOC: WOUND 01:23 | DX: L89.894 Pressure ulcer of other site, stage 4 (principal); L89.893 Pressure ulcer of other site, stage 3; M86.672 Other chronic osteomyelitis, left ankle and foot; I10 Essential (primary) hypertension; T81.89XD Other complications of procedures, not elsewhere classified, subsequent encounter; G62.9 Polyneuropathy, unspecified; Z89.421 Acquired absence of other right toe(s) | CPT/HCPCS: G0463 ==

== ENCOUNTER 2024-11-10 00:59 | Day surgery (SDC) | payer MEDICARE, OTHER | END 2024-11-10 23:00 | disposition home or self-care (01) | LOC: WOUND 00:59 | DX: L89.894 Pressure ulcer of other site, stage 4 (principal); L89.893 Pressure ulcer of other site, stage 3; M86.672 Other chronic osteomyelitis, left ankle and foot; G62.9 Polyneuropathy, unspecified; T81.89XD Other complications of procedures, not elsewhere classified, subsequent encounter; Z89.421 Acquired absence of other right toe(s) | CPT/HCPCS: G0463 ==

== ENCOUNTER 2024-11-17 02:46 | Day surgery (SDC) | payer MEDICARE, OTHER | END 2024-11-17 23:00 | disposition home or self-care (01) | LOC: WOUND 02:46 | DX: L89.894 Pressure ulcer of other site, stage 4 (principal); G62.9 Polyneuropathy, unspecified; M86.672 Other chronic osteomyelitis, left ankle and foot; I10 Essential (primary) hypertension; Z89.421 Acquired absence of other right toe(s) | CPT/HCPCS: A6196; G0463 ==

== ENCOUNTER 2024-11-24 01:50 | Day surgery (SDC) | payer MEDICARE, OTHER | END 2024-11-24 23:00 | disposition home or self-care (01) | LOC: WOUND 01:50 | DX: L89.614 Pressure ulcer of right heel, stage 4 (principal); L89.894 Pressure ulcer of other site, stage 4; L89.893 Pressure ulcer of other site, stage 3; M86.672 Other chronic osteomyelitis, left ankle and foot; G62.9 Polyneuropathy, unspecified; T81.89XD Other complications of procedures, not elsewhere classified, subsequent encounter; Z89.421 Acquired absence of other right toe(s) | CPT/HCPCS: A6196; G0463 ==

== ENCOUNTER 2024-12-01 04:37 | Day surgery (SDC) | payer MEDICARE, OTHER | END 2024-12-01 23:00 | disposition home or self-care (01) | LOC: WOUND 04:37 | DX: L89.894 Pressure ulcer of other site, stage 4 (principal); L89.893 Pressure ulcer of other site, stage 3; M86.672 Other chronic osteomyelitis, left ankle and foot; G62.9 Polyneuropathy, unspecified; T81.89XD Other complications of procedures, not elsewhere classified, subsequent encounter; Z89.421 Acquired absence of other right toe(s); R09.02 Hypoxemia | CPT/HCPCS: A6196; G0463 ==

== ENCOUNTER 2024-12-08 01:31 | Day surgery (SDC) | payer MEDICARE, OTHER | END 2024-12-08 23:00 | disposition home or self-care (01) | LOC: WOUND 01:31 | DX: L89.894 Pressure ulcer of other site, stage 4 (principal); G62.9 Polyneuropathy, unspecified; M86.672 Other chronic osteomyelitis, left ankle and foot; I10 Essential (primary) hypertension; Z89.421 Acquired absence of other right toe(s) | CPT/HCPCS: A6196; G0463 ==

== ENCOUNTER 2024-12-15 03:07 | Day surgery (SDC) | payer MEDICARE, OTHER | END 2024-12-15 23:00 | disposition home or self-care (01) | LOC: WOUND 03:07 | DX: L89.894 Pressure ulcer of other site, stage 4 (principal); M86.672 Other chronic osteomyelitis, left ankle and foot; G62.9 Polyneuropathy, unspecified; I10 Essential (primary) hypertension; Z89.421 Acquired absence of other right toe(s) | CPT/HCPCS: A6196; G0463 ==

== ENCOUNTER 2024-12-22 03:10 | Day surgery (SDC) | payer MEDICARE, OTHER | END 2024-12-22 23:00 | disposition home or self-care (01) | LOC: WOUND 03:10 | DX: L89.894 Pressure ulcer of other site, stage 4 (principal); L89.893 Pressure ulcer of other site, stage 3; M86.672 Other chronic osteomyelitis, left ankle and foot; G62.9 Polyneuropathy, unspecified; Z89.421 Acquired absence of other right toe(s); T81.89XA Other complications of procedures, not elsewhere classified, initial encounter; I10 Essential (primary) hypertension | CPT/HCPCS: A6196; G0463 ==

== ENCOUNTER 2024-12-29 01:54 | Day surgery (SDC) | payer MEDICARE, OTHER | END 2024-12-29 23:00 | disposition home or self-care (01) | LOC: WOUND 01:54 | DX: L89.894 Pressure ulcer of other site, stage 4 (principal); L89.893 Pressure ulcer of other site, stage 3; M86.672 Other chronic osteomyelitis, left ankle and foot; T81.89XA Other complications of procedures, not elsewhere classified, initial encounter; G62.9 Polyneuropathy, unspecified; Z89.421 Acquired absence of other right toe(s); I10 Essential (primary) hypertension | CPT/HCPCS: A6196; G0463 ==

== ENCOUNTER 2025-01-05 05:35 | Day surgery (SDC) | payer MEDICARE, OTHER | END 2025-01-05 23:00 | disposition home or self-care (01) | LOC: WOUND 05:35 | DX: L89.894 Pressure ulcer of other site, stage 4 (principal); L89.893 Pressure ulcer of other site, stage 3; M86.672 Other chronic osteomyelitis, left ankle and foot; G62.9 Polyneuropathy, unspecified; T81.89XD Other complications of procedures, not elsewhere classified, subsequent encounter; Z89.421 Acquired absence of other right toe(s); Y83.8 Other surgical procedures as the cause of abnormal reaction of the patient, or of later complication, without mention of misadventure at the time of the procedure | CPT/HCPCS: A6196; G0463 ==

== ENCOUNTER 2025-01-12 02:44 | Day surgery (SDC) | payer MEDICARE, OTHER | END 2025-01-12 23:00 | disposition home or self-care (01) | LOC: WOUND 02:44 | DX: L89.894 Pressure ulcer of other site, stage 4 (principal); L89.893 Pressure ulcer of other site, stage 3; M86.672 Other chronic osteomyelitis, left ankle and foot; G62.9 Polyneuropathy, unspecified; I10 Essential (primary) hypertension; Z89.421 Acquired absence of other right toe(s) | CPT/HCPCS: A6196; G0463 ==

== ENCOUNTER 2025-02-16 02:57 | Day surgery (SDC) | payer MEDICARE, OTHER | END 2025-02-16 23:00 | disposition home or self-care (01) | LOC: WOUND 02:57 | DX: L89.894 Pressure ulcer of other site, stage 4 (principal); M86.672 Other chronic osteomyelitis, left ankle and foot; G62.9 Polyneuropathy, unspecified; Z89.421 Acquired absence of other right toe(s) | CPT/HCPCS: G0463 ==

== ENCOUNTER 2025-08-03 12:55 | Emergency (ER) | payer MEDICARE, OTHER ==
[~2025-08-03] VITALS: Ht 193 cm; Wt 111.1 kg
[2025-08-03 13:28] VITALS: BP 139/78
== END 2025-08-03 15:20 | disposition home or self-care (01) ==
LOC: ER 12:55
DX: R60.0 Localized edema (principal); I10 Essential (primary) hypertension; Z87.891 Personal history of nicotine dependence; Z79.899 Other long term (current) drug therapy; Z88.8 Allergy status to other drugs, medicaments and biological substances
CPT/HCPCS: 93971; 99283-25

== ENCOUNTER → 2025-09-05 | Day surgery (SDC) | payer MEDICARE, OTHER | LOC: WOUND 12:18 | DX: L89.893 Pressure ulcer of other site, stage 3 (principal); I10 Essential (primary) hypertension; G62.9 Polyneuropathy, unspecified; Z87.891 Personal history of nicotine dependence | CPT/HCPCS: G0463 ==